=== PATIENT | male | born 1965 | race Caucasian/White ===

== ENCOUNTER 2019-11-07 11:26 | Inpatient (IN) | payer BC ==
[~2019-11-07] VITALS: Ht 174 cm; Wt 100.5 kg
[2019-11-07 11:40] VITALS: BP 151/91
[2019-11-07] MEDS ORDERED: ASPIRIN 325 MG TABLET PO ONE (12:15)
--- NOTE | 2019-11-07 12:26 | EKG ---
[facility] [address] [place] [address] Test Date: 2019-11-07 Test Time: 12:22:33 Pat Name: YONY MILAN Department: Room: 208 1 Gender: M Intrusion Analyst: MARIAELENA : 1965 Requested By: BRAD CASTILLO Order Number: [id number] Reading MD: Measurements Intervals [place] Rate: 56 P: 44 IL: 168 QRS: 14 QRSD: 96 T: 32 QT: 408 QTc: 396 Interpretive Statements SINUS RHYTHM NORMAL ECG RI6.02 No previous ECG available for comparison
--- NOTE | 2019-11-07 12:51 | PDOC2 ---
LELIA VILLAGOMEZ BIG DATA ADMIN 11/07/19 1251: CARDIAC CONSULT DATE OF CONSULT Date of Consult DATE: 11/07/19 TIME: 12:48 REASON FOR CONSULT Reason for Consult: Chest pain REFERRING PHYSICIAN Referring Physician: Dr. Finn SOURCE Source: Chart review, Patient HISTORY OF PRESENT ILLNESS HISTORY OF PRESENT ILLNESS This is a 54 yo male who presented from PCP secondary to chest pain. Patient reports intermittent chest pain for the last month or so. Worse with exertional activities. Associated with dizziness and diaphoresis. No palpitations or nausea/vomiting. Also reports shortness of breath with exertion and fatigue. Went to see primary care provider who notified photography assistant with concerns of unstable angina. Patient has strong family h/o CAD with 2 brother and mothers undergoing CABG in their 50's. PAST MEDICAL HISTORY Cardiovascular: HTN Pulmonary: No pertinent hx GI: No pertinent hx Heme/Onc: Other (H/o DVT following knee surgery ) Hepatobiliary: No pertinent hx Psych: No pertinent hx Musculoskeletal: Osteoarthritis Rheumatologic: No pertinent hx Infectious disease: No pertinent hx Renal/: No pertinent hx Endocrine: No pertinent hx Dermatology: No pertinent hx PAST SURGICAL HISTORY Past Surgical History: Other (bilateral knee ) FAMILY HISTORY Family History: Coronary Artery Disease (brothers and mother ) SOCIAL HISTORY Smoke: No ALCOHOL: none Drugs: None Lives: with Family CURRENT MEDICATIONS CURRENT MEDICATIONS Current Medications Medications (Trade) Dose Ordered Sig/Kathie Route PRN Reason Start Time Stop Time Status Last Admin Dose Admin Aspirin (Rupa Aspirin) 325 mg 1X ONCE PO 11/07/19 12:15 11/07/19 12:16 DC 11/07/19 12:28 ALLERGIES ALLERGIES: Coded Allergies: No Known Drug Allergies (Unverified , 02/26/16) ROS Review of System 14 point ROS conducted with pertinent positives noted above in HPI. PHYSICAL EXAM General: Alert, Oriented X3, Cooperative, No acute distress HEENT: Atraumatic, Mucous membr. moist/pink Lungs: Clear to auscultation Heart: Regular rate, Normal S1, Normal S2 Abdomen: Soft, No tenderness Extremities: No edema Skin: No significant lesion Neuro: Normal speech, Sensation intact Psych/Mental Status: Mental status NL, Mood NL MUSCULOSKELETAL: Osteoarthritic changes both hands VITALS/I&O VITALS/I&O: Vital Signs Date Time Temp Pulse Resp B/P (MAP) Pulse Ox O2 Delivery O2 Flow Rate FiO2 11/07/19 11:40 98.7 62 18 151/91 (111) 98 Room Air 98.7 ASSESSMENT/PLAN ASSESSMENT/PLAN 1. Chest pain with typical features 2. Hypertension 3. Arthritis 4. H/o DVT follow knee surgery Recommendations CBC, BMP, PT/INR Lipids, TSH Trend troponin ASA therapy Resume ARB Add low-dose BB Echo to assess LV systolic function Given symptomatolgy and significant risk factors, recommended cardiac cath with possible PCI. R/b/a discussed with patient and he is agreeable. Will proceed with this tomorrow. NPO p SINDI FRAZIER MD 11/07/19 1730: CARDIAC CONSULT ASSESSMENT/PLAN ASSESSMENT/PLAN Patient seen and examined. Agree with HAND SPRING REPAIRER's assessment and plan. Clinical presentation consistent with unstable angina. Monitor serial cardiac enzymes. Check 2D echo to assess LV systolic function and proceed with cardiac catheterization and possible PCI. Risks and benefits were explained and he is agreeable. Thank you for your consultation LELIA VILLAGOMEZ APRN Nov 07, 2019 12:51 SINDI PEDRAZA MD Nov 07, 2019 17:30
[2019-11-07 13:14] LABS: ALBUMIN 4.1 g/dL (3.4-5.0); ALBUMIN/GLOBULIN RATIO 1.2 (1.0-1.7); CALCIUM 8.5 mg/dL (8.5-10.1); GFR 77.9; POTASSIUM 4.5 mmol/L (3.5-5.1); TOTAL BILIRUBIN 0.4 mg/dL (0.2-1.0); TOTAL PROTEIN 7.6 g/dL (6.4-8.2)
[2019-11-07 13:16] LABS: CHOLESTEROL/HDL RATIO 5.7
[2019-11-07] MEDS ORDERED: HYDR12.58 PO (13:38)
[2019-11-07] MEDS ORDERED: CHOL500021 PO (13:38)
[2019-11-07] MEDS ORDERED: ACET-1871 PO (13:38)
[2019-11-07] MEDS ORDERED: ROPI0.254 PO (13:38)
[2019-11-07] MEDS ORDERED: ASCO100T4 PO (13:38)
[2019-11-07] MEDS ORDERED: LOSA-73 PO (13:38)
[2019-11-07 14:18] LABS: BASO % 1 % (0-3); EOS # 0.1 x10^3/uL (0.0-0.7); EOS % 1 % (0-3); HEMATOCRIT 46.6 % (39.0-53.0); HEMOGLOBIN 15.9 g/dL (13.0-17.5); LYMPH # 2.2 x10^3/uL (1.0-4.8); LYMPH % 33 % (24-48); MEAN CORPUSCULAR HEMOGLOBIN 30 pg (25-35); MEAN CORPUSCULAR HGB CONC 34 g/dL (31-37); MEAN CORPUSCULAR VOLUME 88 fL (79-100); MONO # 0.6 x10^3/uL (0.0-1.1); MONO % 9 % (0-9); NEUT # 3.8 x10^3/uL (1.8-7.7); NEUT % 56 % (31-73); PLATELET COUNT 292 x10^3/uL (140-400); RED BLOOD COUNT 5.28 x10^6/uL (4.30-5.70); RED CELL DISTRIBUTION WIDTH 13.7 % (11.5-14.5); WHITE BLOOD COUNT 6.8 x10^3/uL (4.0-11.0)
[2019-11-07 15:00] VITALS: BP 128/86
[2019-11-07] MEDS: LOSARTAN POTASSIUM 50 MG TABLET. PO SCH (16:00)
[2019-11-07 16:55] LABS: PROTHROMBIN TIME PATIENT 12.3 SEC (11.7-14.0)
[2019-11-07 19:58] VITALS: BP 140/82
--- NOTE | 2019-11-07 20:00 | PDOC ---
Provider Note Provider Note Pt seen in the office, admitted to hospital. #[id number].H&P dictated. Justicifation of Admission Dx: Justifications for Admission: Justification of Admission Dx: Yes Angina: Unstable Variant BRAD CASTILLO MD Nov 07, 2019 20:00
[2019-11-07] MEDS: ACETAMINOPHEN 325 MG TABLET. PO PRN (20:15)
[2019-11-07] MEDS: METOPROLOL TART IMMED RELEASE 25 MG TABLET. PO SCH (20:15)
[2019-11-07] MEDS: rOPINIRole 0.25 MG TABLET. PO SCH (20:15)
--- NOTE | 2019-11-07 20:24 | HP ---
ADMIT DATE: 11/07/2019 LOCATION: [address] [place] [address]. REASON FOR ADMISSION TO THE HOSPITAL: Chest pain, unstable angina. HISTORY OF PRESENT ILLNESS: The patient is a 54-year-old male who has noticed chest discomfort, retrosternal and also shortness of breath with exertion going on for a couple of days, progressively worse, came to the Emergency Room. There is a strong family history of coronary artery disease. His brothers and sisters, all of them had either from cardiac disease or had heart bypass surgery, or angioplasty before the age of 55. OTHER MEDICAL HISTORY: Has history of hypertension and gout. PAST SURGICAL HISTORY: Knee surgery on the knee, not replacement. FAMILY HISTORY: Coronary artery disease in brothers, mothers and sisters. SOCIAL HISTORY: Denies smoking, alcohol, or drug abuse. ALLERGIES: No known allergies. MEDICATIONS AT HOME: The patient takes losartan 50 mg daily, ropinirole 0.25 for leg cramps at night time, vitamin D, vitamin C, hydrochlorothiazide, water pill 12.5, Tylenol p.r.n. REVIEW OF SYMPTOMS: Complains of chest pains on and off, shortness of breath increased and with exertion. Rest of the 14-system was reviewed and negative. PHYSICAL EXAMINATION: GENERAL: The patient is not in any distress right now. VITAL SIGNS: Temperature 98, pulse 62, respirations 18, blood pressure 151/91, 98 on room air. HEENT: Head is atraumatic. Pupils equal. Oral cavity; no congestion. NECK: Supple. Thyroid not enlarged. JVD not elevated. CHEST: Symmetrical. CARDIOVASCULAR: S1, S2. LUNGS: Clear to auscultation. ABDOMEN: Soft, bowel sound present, nontender. EXTERNAL GENITALIA: No Petty. RECTAL: Deferred. EXTREMITIES: No calf tenderness, no edema. Pulses 1+. NEUROLOGIC: Moving all extremities. No focal deficits noted. LABORATORY DATA: White count 7, hemoglobin 16, platelets 292. INR 1.0. Electrolytes show sodium 141, potassium 4.5, chloride 30, anion gap 7, BUN 11, creatinine 1.0, glucose 93. LFTs normal. TSH 4.19, cholesterol 188 and TSH is 4.194. EKG, no acute ischemia. Chest x-ray pending. FINAL IMPRESSION: 1. Chest pain with worsening symptoms, possible unstable angina. 2. Shortness of breath with exertion, rule out coronary artery disease. 3. Hypertension. 4. History of gout. 5.Strong family h/o cad in multiple siblings before age 55. PLAN: At this time, admit to the hospital. Cardiology is consulted. Serial cardiac enzymes, crown ironer, EKG, possibly a stress test or a catheterization in the morning. BRAD CASTILLO MD DR: FINESSE/alecia JOB#: [id number] / [id number] MERARY
[2019-11-07 23:02] VITALS: BP 114/72
[2019-11-08] VITALS (16 sets, daily range): BP systolic 91–135; BP diastolic 58–82
--- NOTE | 2019-11-08 08:40 | PDOC ---
PROGRESS NOTES Date of Service: DATE: 11/08/19 TIME: 08:38 Subjective Subjective slight chest discomfort Objective Objective Vital Signs Date Time Temp Pulse Resp B/P (MAP) Pulse Ox O2 Delivery O2 Flow Rate FiO2 11/08/19 02:30 97.4 61 18 132/75 (94) 98 Room Air 97.4 Intake and Output 11/08/19 07:00 Intake Total 1500 ml Output Total 1370 ml Balance 130 ml Intake Oral 1500 ml Output Urine Total 1370 ml Physical Exam Abdomen: Soft, No tenderness Heart: Regular rate, Normal S1, Normal S2 Extremities: No edema General: Alert, Oriented X3, Cooperative, No acute distress HEENT: Atraumatic, Mucous membr. moist/pink Lungs: Clear to auscultation MUSCULOSKELETAL: Osteoarthritic changes both hands Neuro: Normal speech, Sensation intact Psych/Mental Status: Mental status NL, Mood NL Skin: No significant lesion Assessment Assessment FINAL IMPRESSION: 1. Chest pain with worsening symptoms, possible unstable angina. 2. Shortness of breath with exertion, rule out coronary artery disease. 3. Hypertension. 4. History of gout. 5. Strong family h/o CAD PLAN: EKG -ve troponin neg cardiac cath today cxr pending ldl 130 start on statin. At this time, admit to the hospital. Cardiology is consulted. Serial cardiac enzymes, inside sales agent, EKG, possibly a stress test or a catheterization in the morning. Comment Review of Relevant I have reviewed the following items dread (where applicable) has been applied. Labs Laboratory Tests Test 11/07/19 12:34 11/07/19 18:35 White Blood Count 6.8 x10^3/uL (4.0-11.0) Red Blood Count 5.28 x10^6/uL (4.30-5.70) Hemoglobin 15.9 g/dL (13.0-17.5) Hematocrit 46.6 % (39.0-53.0) Mean Corpuscular Volume 88 fL (79-100) Mean Corpuscular Hemoglobin 30 pg (25-35) Mean Corpuscular Hemoglobin Concent 34 g/dL (31-37) Red Cell Distribution Width 13.7 % (11.5-14.5) Platelet Count 292 x10^3/uL (140-400) Neutrophils (%) (Auto) 56 % (31-73) Lymphocytes (%) (Auto) 33 % (24-48) Monocytes (%) (Auto) 9 % (0-9) Eosinophils (%) (Auto) 1 % (0-3) Basophils (%) (Auto) 1 % (0-3) Neutrophils # (Auto) 3.8 x10^3/uL (1.8-7.7) Lymphocytes # (Auto) 2.2 x10^3/uL (1.0-4.8) Monocytes # (Auto) 0.6 x10^3/uL (0.0-1.1) Eosinophils # (Auto) 0.1 x10^3/uL (0.0-0.7) Basophils # (Auto) 0.0 x10^3/uL (0.0-0.2) Prothrombin Time 12.3 SEC (11.7-14.0) Prothromb Time International Ratio 1.0 (0.8-1.1) Sodium Level 141 mmol/L (136-145) Potassium Level 4.5 mmol/L (3.5-5.1) Chloride Level 104 mmol/L (98-107) Carbon Dioxide Level 30 mmol/L (21-32) Anion Gap 7 (6-14) Blood Urea Nitrogen 11 mg/dL (8-26) Creatinine 1.0 mg/dL (0.7-1.3) Estimated GFR (Cockcroft-Gault) 77.9 BUN/Creatinine Ratio 11 (6-20) Glucose Level 93 mg/dL (70-99) Calcium Level 8.5 mg/dL (8.5-10.1) Total Bilirubin 0.4 mg/dL (0.2-1.0) Aspartate Amino Transf (AST/SGOT) 20 U/L (15-37) Alanine Aminotransferase (ALT/SGPT) 42 U/L (16-63) Alkaline Phosphatase 49 U/L (46-116) Troponin I Quantitative < 0.017 ng/mL (0.000-0.055) < 0.017 ng/mL (0.000-0.055) Total Protein 7.6 g/dL (6.4-8.2) Albumin 4.1 g/dL (3.4-5.0) Albumin/Globulin Ratio 1.2 (1.0-1.7) Triglycerides Level 162 mg/dL (0-150) Cholesterol Level 188 mg/dL (0-200) LDL Cholesterol, Calculated 123 mg/dL (0-100) VLDL Cholesterol, Calculated 32 mg/dL (0-40) Non-HDL Cholesterol Calculated 155 mg/dL (0-129) HDL Cholesterol 33 mg/dL (40-60) Cholesterol/HDL Ratio 5.7 Thyroid Stimulating Hormone (TSH) 4.194 uIU/mL (0.358-3.74) Medications Current Medications Acetaminophen (Tylenol) 650 mg PRN Q6HRS PRN PO PAIN Last administered on 11/07/19at 20:15; Start 11/07/19 at 20:00 Aspirin (Rupa Aspirin) 325 mg 1X ONCE PO Last administered on 11/07/19at 12:28; Start 11/07/19 at 12:15; Stop 11/07/19 at 12:16; Status DC Aspirin (Ecotrin) 81 mg DAILYWBKFT PO ; Start 11/08/19 at 08:00 Losartan Potassium (Cozaar) 50 mg DAILY PO ; Start 11/07/19 at 16:00 Metoprolol Tartrate (Lopressor) 25 mg BID PO Last administered on 11/07/19at 20:15; Start 11/07/19 at 21:00 Ropinirole HCl (Requip) 0.25 mg HS PO Last administered on 11/07/19at 20:15; Start 11/07/19 at 21:00 Vitals/I & O Vital Sign - Last 24 Hours 11/07/19 11/07/19 11/07/19 11/07/19 11:40 12:30 15:00 16:00 Temp 98.7 98.2 98.7 98.2 Pulse 62 59 59 Resp 18 20 B/P (MAP) 151/91 (111) 128/86 (100) 128/86 Pulse Ox 98 97 O2 Delivery Room Air Room Air Room Air 11/07/19 11/07/19 11/07/19 11/07/19 19:58 20:00 20:15 23:02 Temp 97.9 97.7 97.9 97.7 Pulse 60 60 56 Resp 18 18 B/P (MAP) 140/82 (101) 140/82 114/72 (86) Pulse Ox 97 97 O2 Delivery Room Air Room Air Room Air 11/08/19 02:30 Temp 97.4 97.4 Pulse 61 Resp 18 B/P (MAP) 132/75 (94) Pulse Ox 98 O2 Delivery Room Air Intake and Output 11/07/19 11/07/19 11/08/19 15:00 23:00 07:00 Intake Total 1500 ml 0 ml Output Total 420 ml 950 ml Balance 1080 ml -950 ml Justicifation of Admission Dx: Justifications for Admission: Justification of Admission Dx: Yes Angina: Unstable Variant BRAD CASTILLO MD Nov 08, 2019 08:40
[2019-11-08] MEDS ORDERED: ASPI-886 PO (08:42)
--- NOTE | 2019-11-08 08:42 | RAD ---
CHEST PA LATERAL History: Reason: chest pain / Spl. Instructions: / History: Comparison: None. Findings: No consolidation or pleural effusion. Normal heart size. No pneumothorax. Impression: 1. No acute cardiopulmonary process. Electronically signed by: Rodriguez Banda DO (11/08/2019 8:40 AM) [id number]
[2019-11-08] MEDS: ASPIRIN ENTERIC COATED 81 MG TABLET.DR. PO SCH (08:53)
[2019-11-08] MEDS: METOPROLOL TART IMMED RELEASE 25 MG TABLET. PO SCH ×2 (08:53→21:05)
[2019-11-08] MEDS: LOSARTAN POTASSIUM 50 MG TABLET. PO SCH (08:53)
[2019-11-08] MEDS ORDERED: IOHEXOL 300 MG/ML 100ML VIAL. ONE ×2 (11:45→14:23)
[2019-11-08] MEDS ORDERED: LIDOCAINE 1% PF 2 ML VIAL. ONE (11:45)
[2019-11-08] MEDS ORDERED: HEPARIN for IV BOLUS 10,000 UNIT/10 ML VIAL. ONE (13:08)
[2019-11-08] MEDS ORDERED: VERAPAMIL 5 MG/2 ML VIAL. ONE (13:08)
[2019-11-08] MEDS ORDERED: NITROGLYCERIN 200 MCG/2 ML SYRINGE FOR CATH/VASC LAB. ONE ×2 (13:08→14:28)
[2019-11-08] MEDS ORDERED: fentaNYL PF VIAL 100 MCG/2 ML VIAL ONE (13:08)
[2019-11-08] MEDS ORDERED: MIDAZOLAM HCL/PF 2 MG/2 ML VIAL. ONE (13:08)
--- NOTE | 2019-11-08 13:44 | NUR ---
SS following for discharge planning. SS reviewed pt chart and discussed with pt RN. Pt is from home and is currently on room air. Pt having heart cath today. Discharge plan is to home when medically ready. SS will continue to follow for discharge planning.
[2019-11-08] MEDS ORDERED: NITROGLYCERIN 200 MCG/2 ML SYRINGE FOR CATH/VASC LAB. IART ONE ×2 (13:45→14:30)
[2019-11-08] MEDS ORDERED: MIDAZOLAM HCL/PF 2 MG/2 ML VIAL. IV ONE (13:45)
[2019-11-08] MEDS ORDERED: LIDOCAINE 1% PF 2 ML VIAL. INJ ONE (13:45)
[2019-11-08] MEDS ORDERED: IOHEXOL 300 MG/ML 100ML VIAL. IART ONE (13:45)
[2019-11-08] MEDS ORDERED: VERAPAMIL 5 MG/2 ML VIAL. IART ONE (13:45)
[2019-11-08] MEDS ORDERED: HEPARIN for IV BOLUS 10,000 UNIT/10 ML VIAL. IART ONE (13:45)
[2019-11-08] MEDS ORDERED: fentaNYL PF VIAL 100 MCG/2 ML VIAL IV ONE (13:45)
[2019-11-08] MEDS ORDERED: BIVALIRUDIN 250 MG VIAL. IV ONE ×4 (13:47→14:15)
[2019-11-08] MEDS ORDERED: ASPIRIN 325 MG TABLET ONE (14:35)
[2019-11-08] MEDS ORDERED: TICAGRELOR 90 MG TABLET. ONE (14:35)
[2019-11-08] MEDS ORDERED: TICAGRELOR 90 MG TABLET. PO ONE (14:45)
[2019-11-08] MEDS ORDERED: ASPIRIN 325 MG TABLET PO ONE (14:45)
--- NOTE | 2019-11-08 14:56 | PDOC ---
MODERATE SEDATION ASSESSMENT RISKS/ALTERNATIVES Risks/Alternatives Risks and alternatives of this type of sedation and procedure discussed with: RISK/ALTERNATIVES: Patient H & P ON CHART H & P H & P on chart and reviewed for co-morbid conditions and appropriate labs. H&P ON CHART: Yes STATUS PREG STATUS ASSESSED: N/A MEDS/ALLERGIES REVIEWED Meds/Allergies Reviewed Medications and Allergies including time and route of recently administered narcotics and sedatives. MEDS/ALLERGIES REVIEWED: Yes ASA RATING ASA RATING: II AIRWAY ASSESSMENT Airway Assessment Airway patency, oral function limitations, presence of caps, crowns, dentures, partials, and ability to extend neck assessed. AIRWAY ASSESSMENT: Yes MALLAMPATI SCORE MALLAMPATI SCORE: II PRE-SEDATION ASSESSMENT PRE-SEDATION ASSESSMENT: Yes SINDI PEDRAZA MD Nov 08, 2019 14:56
[2019-11-08] MEDS ORDERED: IV 1/2 NORMAL SALINE 1,000 ML IV SCH (14:57)
[2019-11-08] MEDS ORDERED: fentaNYL PF VIAL 100 MCG/2 ML VIAL IV PRN (15:00)
[2019-11-08] MEDS ORDERED: NITROGLYCERIN SUBLINGUAL 0.4 MG BOTTLE OF 25. SL PRN (15:00)
[2019-11-08] MEDS ORDERED: 0.9 % SODIUM CHLORIDE 10 ML DISP.SYRIN. IV PRN (15:00)
--- NOTE | 2019-11-08 15:06 | CARD ---
MR#: [id number] Date of Study: 11/08/2019 Ordering Physician: SINDI MITCHELL, Referring Physician: SINDI MITCHELL, Tech: Angy Acevedo APPROVED REPORT Technologist: Angy Acevedo Nurse: Shivani Geronimo Procedure(s) performed: 1. Left heart catheterization and selective coronary angiography via right t ransradial approach 2. Successful PCI/drug-eluting stents placement to the left anterior descending artery fl time: 23.3 min dose: 139 gycm2 contrast: 229 ml moderate sedation: 68 mins INDICATION The indication(s) include : unstable angina . CSHA Clinical Frailty Scale CSHA Clinical Frailty Scale: Managing Well Heart Failure Heart Failure: No PROCEDURE NARRATIVE After explaining the risks, benefits and alternative options, informed consent was obtained from leslie ent. Patient was brought to the cardiac Systems Designer and right wrist was prepped and draped in the usual fashion after confirming a positive modified Patrice's test. Arterial access was obtained in the righ t radial artery and a 6 [place] sheath was inserted. 6 [place] Bin catheter was used to perform enrico ective angiography of the left and right coronary arteries. LVEDP and transaortic gradients were christi sured. The following findings were noted. FINDINGS 1. Hemodynamics: Left ventricular end-diastolic pressure of 18 mmHg. No pullback gradient across th e aortic valve. 2. Coronary angiography: a. The left main coronary artery arose from the left sinus of Valsalva, gave rise to the left anteri or descending, ramus intermedius and left circumflex arteries and did not show any significant stenos is. b. The left anterior descending artery showed 80 to 90% stenosis involving the mid to distal segment . The proximal segment showed 60% stenosis with ulcerated plaque with high risk features. c. The left circumflex artery did not show any significant stenosis. d. The ramus intermedius artery did not show any significant stenosis. e. The right coronary artery was a large and dominant vessel arising from the right sinus of Valsalv a that showed 20% stenosis in the proximal and mid segments. INTERVENTION The left main coronary artery was engaged with a 6 [place] XB 3.5 guide catheter. Several initial att empts to advance 0.014 inch Asahi pro-water guidewire across the midsegment of left anterior descendi ng artery were unsuccessful due to tortuous course. With this wire parked in the diagonal branch, a 0.014 inch PT to guidewire was successfully advanced into the distal segment. The lesions in the pro ximal and mid to distal segments were dilated with a 2.5 x 15 mm [employer] emerge balloon. T he mid to distal segment lesion was then treated with a 2.5 x 24 mm [employer] Promus Elite dr ug-eluting stent. The proximal segment stenosis was treated with a 3.5 x 24 mm [employer] Pro mus Elite drug-eluting stent. Follow-up angiography showed resolution of both the lesions to 0% with MICHAEL-3 distal flow. Patient tolerated the procedure well. Hemostasis was achieved using TR band. There were no immediate complications MICHAEL Flow MICHAEL Flow (Pre-Intervention): MICHAEL-2 MICHAEL Flow (Post-Intervention): MICHAEL-3 MICHAEL Flow MICHAEL Flow (Pre-Intervention): MICHAEL-3 MICHAEL Flow (Post-Intervention): MICHAEL-3 Conclusion 1. Severe single-vessel coronary artery disease involving left anterior descending artery 2. Successful PCI/drug-eluting stent placement to the left anterior descending artery Recommendations 1. Aspirin 81 mg daily 2. Ticagrelor 90 mg twice daily 3. Cardiovascular risk factor modification. Signed by : Sindi Mitchell, Electronically Approved : 11/08/2019 15:05:27
[2019-11-08] MEDS ORDERED: ATORVASTATIN CALCIUM 10 MG TABLET. PO SCH (21:00)
[2019-11-08] MEDS: ACETAMINOPHEN 325 MG TABLET. PO PRN (21:04)
[2019-11-08] MEDS: rOPINIRole 0.25 MG TABLET. PO SCH (21:05)
[2019-11-08] MEDS ORDERED: METO25TA4 PO (21:24)
[2019-11-08] MEDS ORDERED: TICA90TA PO (21:24)
[2019-11-09 03:22] VITALS: BP 128/64
[2019-11-09 07:00] VITALS: BP 114/79
[2019-11-09] MEDS: METOPROLOL TART IMMED RELEASE 25 MG TABLET. PO SCH (08:32)
[2019-11-09] MEDS: LOSARTAN POTASSIUM 50 MG TABLET. PO SCH (08:33)
[2019-11-09] MEDS: ASPIRIN ENTERIC COATED 81 MG TABLET.DR. PO SCH (08:33)
--- NOTE | 2019-11-09 08:59 | PDOC ---
PROGRESS NOTES Date of Service: DATE: 11/09/19 TIME: 08:59 Objective Objective Vital Signs Date Time Temp Pulse Resp B/P (MAP) Pulse Ox O2 Delivery O2 Flow Rate FiO2 11/09/19 08:33 54 114/79 11/09/19 07:00 97.6 18 98 Room Air 97.6 11/08/19 13:45 2.0 Intake and Output 11/09/19 07:00 Intake Total 3350 ml Output Total 3450 ml Balance -100 ml Intake Oral 2400 ml IV Total 950 ml Output Urine Total 3450 ml Physical Exam Abdomen: Soft, No tenderness Heart: Regular rate, Normal S1, Normal S2 Extremities: No edema General: Alert, Oriented X3, Cooperative, No acute distress HEENT: Atraumatic, Mucous membr. moist/pink Lungs: Clear to auscultation MUSCULOSKELETAL: Osteoarthritic changes both hands Neuro: Normal speech, Sensation intact Psych/Mental Status: Mental status NL, Mood NL Skin: No significant lesion Assessment Assessment FINAL IMPRESSION: 1. Chest pain with worsening symptoms, possible unstable angina. 2. Shortness of breath with exertion, rule out coronary artery disease. 3. Hypertension. 4. History of gout. 5. Strong family h/o CAD PLAN: EKG -ve troponin neg cardiac cath today cxr pending ldl 130 start on statin. At this time, admit to the hospital. Cardiology is consulted. Serial cardiac enzymes, compliance monitor, EKG, possibly a stress test or a catheterization in the morning. Comment Review of Relevant I have reviewed the following items dread (where applicable) has been applied. Medications Current Medications Aspirin (Rupa Aspirin) 325 mg 1X ONCE PO Last administered on 11/08/19at 14:43; Start 11/08/19 at 14:45; Stop 11/08/19 at 14:46; Status DC Aspirin (Rupa Aspirin) 325 mg STK-MED ONCE .ROUTE ; Start 11/08/19 at 14:35; Stop 11/08/19 at 14:36; Status DC Atorvastatin Calcium (Lipitor) 10 mg QHS PO Last administered on 11/08/19at 21:04; Start 11/08/19 at 21:00 Bivalirudin (Angiomax) 250 mg 1X ONCE IV Last administered on 11/08/19at 14:00; Start 11/08/19 at 14:00; Stop 11/08/19 at 14:01; Status DC Bivalirudin (Angiomax) 250 mg 1X ONCE IV Last administered on 11/08/19at 14:24; Start 11/08/19 at 14:15; Stop 11/08/19 at 14:18; Status DC Bivalirudin (Angiomax) 250 mg STK-MED ONCE IV ; Start 11/08/19 at 13:47; Stop 11/08/19 at 13:48; Status DC Bivalirudin (Angiomax) 250 mg STK-MED ONCE IV ; Start 11/08/19 at 14:05; Stop 11/08/19 at 14:05; Status DC Fentanyl Citrate (Fentanyl 2ml Vial) 50 mcg PRN Q1HR PRN IV MODERATE OR SEVERE PAIN; Start 11/08/19 at 15:00 Fentanyl Citrate (Fentanyl 2ml Vial) 100 mcg 1X ONCE IV Last administered on 11/08/19at 13:45; Start 11/08/19 at 13:45; Stop 11/08/19 at 13:57; Status DC Fentanyl Citrate (Fentanyl 2ml Vial) 100 mcg STK-MED ONCE .ROUTE ; Start 11/08/19 at 13:08; Stop 11/08/19 at 13:08; Status DC Heparin Sodium (Porcine) (Heparin Sodium) 2,500 unit 1X ONCE IART Last administered on 11/08/19at 13:45; Start 11/08/19 at 13:45; Stop 11/08/19 at 13:57; Status DC Heparin Sodium (Porcine) (Heparin Sodium) 10,000 unit STK-MED ONCE .ROUTE ; Start 11/08/19 at 13:08; Stop 11/08/19 at 13:09; Status DC Heparin Sodium/ Sodium Chloride 500 ml @ As Directed STK-MED ONCE .ROUTE ; Start 11/08/19 at 11:45; Stop 11/08/19 at 11:45; Status DC Heparin Sodium/ Sodium Chloride (HEPARIN for ARTERIAL LINE FLUSH) 1,000 unit 1X ONCE IART Last administered on 11/08/19at 13:45; Start 11/08/19 at 13:45; Stop 11/08/19 at 13:57; Status DC Heparin Sodium/ Sodium Chloride (HEPARIN for ARTERIAL LINE FLUSH) 1,000 unit 1X ONCE IART Last administered on 11/08/19at 13:45; Start 11/08/19 at 13:45; Stop 11/08/19 at 13:57; Status DC Iohexol (Omnipaque 300 Mg/ml) 100 ml 1X ONCE IART Last administered on 11/08/19at 13:45; Start 11/08/19 at 13:45; Stop 11/08/19 at 13:57; Status DC Iohexol (Omnipaque 300 Mg/ml) 100 ml STK-MED ONCE .ROUTE ; Start 11/08/19 at 11:45; Stop 11/08/19 at 11:45; Status DC Iohexol (Omnipaque 300 Mg/ml) 100 ml STK-MED ONCE .ROUTE ; Start 11/08/19 at 14:23; Stop 11/08/19 at 14:23; Status DC Lidocaine HCl (Xylocaine-Mpf 1% 2ml Vial) 2 ml 1X ONCE INJ Last administered on 11/08/19at 13:45; Start 11/08/19 at 13:45; Stop 11/08/19 at 13:57; Status DC Lidocaine HCl (Xylocaine-Mpf 1% 2ml Vial) 2 ml STK-MED ONCE .ROUTE ; Start 11/08/19 at 11:45; Stop 11/08/19 at 11:45; Status DC Midazolam HCl (Versed) 2 mg 1X ONCE IV Last administered on 11/08/19at 13:45; Start 11/08/19 at 13:45; Stop 11/08/19 at 13:57; Status DC Midazolam HCl (Versed) 2 mg STK-MED ONCE .ROUTE ; Start 11/08/19 at 13:08; Stop 11/08/19 at 13:09; Status DC Nitroglycerin (Nitroglycerin) 200 mcg 1X ONCE IART Last administered on 11/08/19at 13:45; Start 11/08/19 at 13:45; Stop 11/08/19 at 13:56; Status DC Nitroglycerin (Nitroglycerin) 200 mcg 1X ONCE IART Last administered on 11/08/19at 14:30; Start 11/08/19 at 14:30; Stop 11/08/19 at 14:31; Status DC Nitroglycerin (Nitroglycerin) 200 mcg STK-MED ONCE .ROUTE ; Start 11/08/19 at 13:08; Stop 11/08/19 at 13:09; Status DC Nitroglycerin (Nitroglycerin) 200 mcg STK-MED ONCE .ROUTE ; Start 11/08/19 at 14:28; Stop 11/08/19 at 14:28; Status DC Nitroglycerin (Nitrostat) 0.4 mg PRN Q5MIN PRN SL CHEST PAIN; Start 11/08/19 at 15:00 Sodium Chloride 1,000 ml @ 100 mls/hr Q10H IV Last administered on 11/08/19at 17:48; Start 11/08/19 at 14:57; Stop 11/09/19 at 00:56; Status DC Sodium Chloride (Normal Saline Flush) 3 ml QSHIFT PRN IV AFTER MEDS AND BLOOD DRAWS; Start 11/08/19 at 15:00 Ticagrelor (Brilinta) 90 mg BID PO Last administered on 11/09/19at 08:32; Start 11/09/19 at 09:00 Ticagrelor (Brilinta) 90 mg STK-MED ONCE .ROUTE ; Start 11/08/19 at 14:35; Stop 11/08/19 at 14:35; Status DC Ticagrelor (Brilinta) 180 mg 1X ONCE PO Last administered on 11/08/19at 14:43; Start 11/08/19 at 14:45; Stop 11/08/19 at 14:46; Status DC Verapamil HCl (Verapamil) 2.5 mg 1X ONCE IART Last administered on 11/08/19at 13:45; Start 11/08/19 at 13:45; Stop 11/08/19 at 13:57; Status DC Verapamil HCl (Verapamil) 5 mg STK-MED ONCE .ROUTE ; Start 11/08/19 at 13:08; Stop 11/08/19 at 13:09; Status DC Vitals/I & O Vital Sign - Last 24 Hours 11/08/19 11/08/19 11/08/19 11/08/19 11:00 13:45 13:45 14:44 Temp 97.4 97.4 Pulse 74 50 68 Resp 16 21 19 B/P (MAP) 124/74 (91) Pulse Ox 96 99 98 O2 Delivery Room Air Nasal Cannula Room Air O2 Flow Rate 2.0 11/08/19 11/08/19 11/08/19 11/08/19 15:00 15:15 15:30 15:45 Temp 94.4 94.4 Pulse 63 46 46 54 Resp 16 16 16 16 B/P (MAP) 135/76 (95) 113/82 (92) 91/63 (72) 135/76 (95) Pulse Ox 99 99 99 99 O2 Delivery Room Air Room Air Room Air Room Air 11/08/19 11/08/19 11/08/19 11/08/19 16:15 16:45 16:57 17:27 Pulse 49 53 58 59 Resp 16 16 16 16 B/P (MAP) 135/76 (95) 129/79 (96) 111/78 (89) 120/75 (90) Pulse Ox 97 98 98 98 O2 Delivery Room Air Room Air Room Air Room Air 11/08/19 11/08/19 11/08/19 11/08/19 17:57 18:27 19:38 20:00 Temp 98.1 98.1 Pulse 55 59 57 Resp 16 16 18 B/P (MAP) 118/65 (82) 116/58 (77) 133/68 (89) Pulse Ox 98 99 98 O2 Delivery Room Air Room Air Room Air Room Air 11/08/19 11/08/19 11/09/19 11/09/19 21:05 23:15 03:22 07:00 Temp 97.5 97.8 97.6 97.5 97.8 97.6 Pulse 57 47 54 59 Resp 18 18 18 B/P (MAP) 133/68 122/65 (84) 128/64 (85) 114/79 (91) Pulse Ox 97 98 98 O2 Delivery Room Air Room Air Room Air 11/09/19 11/09/19 08:32 08:33 Pulse 86 54 B/P (MAP) 114/79 114/79 Intake and Output 11/08/19 11/08/19 11/09/19 15:00 23:00 07:00 Intake Total 2400 ml 950 ml Output Total 1000 ml 650 ml 1800 ml Balance -1000 ml 1750 ml -850 ml Justicifation of Admission Dx: Justifications for Admission: Justification of Admission Dx: Yes Angina: Unstable Variant BRAD CASTILLO MD Nov 09, 2019 08:59
[2019-11-09] MEDS ORDERED: TICAGRELOR 90 MG TABLET. PO SCH (09:00)
--- NOTE | 2019-11-09 09:05 | CARD ---
MR#: [id number] Date of Study: 11/08/2019 Ordering Physician: LELIA VILLAGOMEZ, Referring Physician: LELIA VILLAGOMEZ, Tech: Cinda Calle [facility] APPROVED REPORT EXAM: Two-dimensional and M-mode echocardiogram with Doppler and color Doppler. Other Information Quality : Good Rhythm : Bradycardia INDICATION Chest Pain 2D DIMENSIONS RVDd3.2 (2.9-3.5cm)Left Atrium(2D)4.1 (1.6-4.0cm) IVSd1.3 (0.7-1.1cm)Aortic Root(2D)3.3 (2.0-3.7cm) LVDd4.6 (3.9-5.9cm)LVOT Diameter2.1 (1.8-2.4cm) PWd1.3 (0.7-1.1cm)LVDs2.8 (2.5-4.0cm) FS (%) 25.0 %LVEF(%)50.0 (>50%) Aortic Valve AoV Peak Placido.100.0cm/sAoV VTI21.0cm AO Peak GR.4.0mmHgAO Mean GR.2mmHg RICHARD (VTI)3.40cm2 LEFT VENTRICLE The left ventricle is normal size. There is mild concentric left ventricular hypertrophy. Left ventri gretchen systolic function is low normal. The Ejection Fraction is 50-55%. There is normal LV segmental wa ll motion. The left ventricular diastolic function and filling is normal for age. No left ventricle t hrombus noted on this study. RIGHT VENTRICLE The right ventricle is mildly dilated. The right ventricle is mildly to moderately hypertrophied. The right ventricular systolic function is normal. ATRIA The left atrium is mildly dilated. The right atrium size is normal. The interatrial septum is intact with no evidence for an atrial septal defect or patent foramen ovale as noted on 2-D or Doppler imagi ng. AORTIC VALVE The aortic valve is calcified but opens well. Doppler and Color Flow revealed no significant aortic r egurgitation. There is no significant aortic valvular stenosis. MITRAL VALVE The mitral valve is normal in structure and function. There is no evidence of mitral valve prolapse. There is no mitral valve stenosis. Doppler and Color Flow revealed no mitral valve regurgitation note d. TRICUSPID VALVE The tricuspid valve is normal in structure and function. Doppler and Color Flow revealed no tricuspid valve regurgitation noted. There is no tricuspid valve stenosis. PULMONIC VALVE The pulmonic valve is not well visualized. Doppler and Color Flow revealed no pulmonic valvular regur gitation. There is no pulmonic valvular stenosis. GREAT VESSELS The aortic root is normal in size. The ascending aorta is normal in size. The IVC is normal in size a nd collapses >50% with inspiration. PERICARDIAL EFFUSION There is no evidence of significant pericardial effusion. Critical Notification Critical Value: No <Conclusion> Left ventricle systolic function is low normal. The Ejection Fraction is 50-55%. There is normal LV segmental wall motion. Signed by : Rafita Tyson, Electronically Approved : 11/09/2019 09:04:52
[2019-11-09] MEDS ORDERED: ATOR10TA PO (10:07)
--- NOTE | 2019-11-09 10:56 | NUR ---
SW following. Discussed with RN, pt from home, cardiac diet, room air. Heart cath on 11/07. Discharge order for home with self care, no further SW needs.
[2019-11-09 11:00] VITALS: BP 116/70
--- NOTE | 2019-11-09 11:35 | PDOC ---
LELIA VILLAGOMEZ APRN 11/09/19 1135: CARDIO Progress Notes Date and Time Date of Service 11/09/19 Time of Evaluation 1120 Subjective Subjective: No Chest Pain, No shortness of breath, No Palpitations Vitals Vitals Vital Signs Date Time Temp Pulse Resp B/P (MAP) Pulse Ox O2 Delivery O2 Flow Rate FiO2 11/09/19 08:33 54 114/79 11/09/19 07:00 97.6 18 98 Room Air 97.6 11/08/19 13:45 2.0 Weight Weight [ ] Input and Output Intake and Output Intake and Output 11/09/19 07:00 Intake Total 3350 ml Output Total 3450 ml Balance -100 ml Intake Oral 2400 ml IV Total 950 ml Output Urine Total 3450 ml Physical Exam HEENT: Neck Supple W Full Motion Chest: Symmetric LUNGS: Clear to Auscultation Heart: S1S2, RRR, no murmurs Abdomen: Soft N/T Extremities: No Edema, Other (right radial arteriotomy site soft, clean, and dry. No erythema or hematoma present. Neurovascular status intact) Neurology: alert, oriented, follow commands Assessment Assessment 1. Chest pain with typical features 2. CAD; Cath with severe one-vessel disease. s/p successful PCI/LALITO to the LAD. Echo with preserved LV systolic function 3. Hypertension; controlled 4. Dyslipidemia; statin added Recommendations Secondary prevention measures including DAPT with ASA and Brilinta Statin and BB therapy Risk stratification modification Cardiac rehab referral Okay to discharge Follow up in our office with Dr. Mitchell as scheduled. Justicifation of Admission Dx: Justifications for Admission: Justification of Admission Dx: Yes Angina: Unstable Variant SINDI MITCHELL MD 11/09/192054: CARDIO Progress Notes Assessment Assessment Patient seen and examined. Agree with HAND MODEL's assessment and plan. s/p PCI/LALITO to LAD, chest pain free Tele did not show any arrhythmias ok for DC from cardiac standpoint Continue DAPT F/u in one month LELIA VILLAGOMEZ APRN Nov 09, 2019 11:35 SINDI MITCHELL MD Nov 09, 2019 20:55
--- NOTE | 2019-11-09 13:44 | NUR ---
Discharge Note: RIRI MILAN Discharge instructions and discharge home medications reviewed with Patient and a copy given. All questions have been answered and understanding verbalized. The following instructions and handouts were given: cath with stents Discontinued lines and drains: Peripheral IV intact. Patient discharged to Home or Self Care with Family Member via Ambulated
--- NOTE | 2019-11-09 21:28 | PDOC ---
Provider Note Provider Note Discharge summary dictated.#[id number]. Justicifation of Admission Dx: Justifications for Admission: Justification of Admission Dx: Yes Angina: Unstable Variant BRAD CASTILLO MD Nov 09, 2019 21:28
--- NOTE | 2019-11-09 21:48 | DS ---
DATE OF DISCHARGE: 11/09/2019 REASON FOR ADMISSION TO THE HOSPITAL: Progressive shortness of breath, chest tightness, unstable angina. CONSULTATION: Matthew Mitchell MD PROCEDURES DONE: 1. Echocardiogram. 2. Cardiac cath. 3. Also insertion of stent in the LAD. COMPLICATIONS NOTED: None. HOSPITAL COURSE: The patient is a 54-year-old male, who was complaining of progressive shortness of breath and chest tightness for last 1 week, getting progressively worse. The patient has a strong family history of coronary artery disease. Most of his siblings had other CAD, bypass, stents and from heart disease before the age of 55. The patient was admitted to the hospital. Cardiac enzymes and EKG were negative. Echocardiogram shows a normal left ventricular function. The patient was taken to cardiac catheterization. LAD has 60% proximal, 90% distal stenosis. The patient had a stent placed. Circumflex, no lesions. Ramus, no lesions. Right coronary, large dominant vessel, 20% stenosis. The patient did tolerate stents in the LAD. The patient was placed on Brilinta and aspirin and then started on Lipitor and metoprolol. The patient was discharged home. Follow up as outpatient. FINAL DIAGNOSES: 1. Unstable angina. 2. Cardiac catheterization shows single vessel disease, 90% distal left anterior descending. The patient had a stent placed. 3. Hypertension. 4. Hyperlipidemia. 5. Strong family history of coronary artery disease. DISPOSITION: Home. DISCHARGE MEDICATIONS: See MRAD for discharge medications. BRAD CASTILLO MD DR: FINESSE/alecia JOB#: [id number] / [id number]
== END 2019-11-09 13:46 | disposition home or self-care (01) | DRG 247 ==
LOC: 2 NORTH 11:26
PROVIDERS: ADMIT Internal Medicine; ATTEND Internal Medicine
PROC: B2111ZZ Fluoroscopy of Multiple Coronary Arteries using Low Osmolar Contrast (ICD-10-PCS; principal; 2019-11-08)
PROC: 027034Z Dilation of Coronary Artery, One Artery with Drug-eluting Intraluminal Device, Percutaneous Approach (ICD-10-PCS; 2019-11-08)
PROC: 4A023N7 Measurement of Cardiac Sampling and Pressure, Left Heart, Percutaneous Approach (ICD-10-PCS; 2019-11-08)
DX: I25.110 Atherosclerotic heart disease of native coronary artery with unstable angina pectoris (principal); I10 Essential (primary) hypertension; E78.5 Hyperlipidemia, unspecified; M19.90 Unspecified osteoarthritis, unspecified site; Z82.49 Family history of ischemic heart disease and other diseases of the circulatory system; Z86.718 Personal history of other venous thrombosis and embolism
CPT/HCPCS: 36415; 71046; 80053; 80061; 84443; 84484; 85025; 85610; 92928; 93005; 93306; 93458; 99152; 99153; C1725; C1769; C1887; C1892; J0583; J1644; J2250; J3010; J3490; Q9967; C1874; G0378

== ENCOUNTER 2019-11-14 21:33 | Emergency (ER) | payer BC ==
[~2019-11-14] VITALS: Ht 175.3 cm; Wt 99.5 kg
[~2019-11-14 21:33] MED LIST: ACET-1871 PO; ASCO100T4 PO; ASPI-886 PO; ATOR10TA PO; CHOL500021 PO; HYDR12.58 PO; LOSA-73 PO; METO25TA4 PO; ROPI0.254 PO; TICA90TA PO
--- NOTE | 2019-11-14 22:52 | PHYS DOC ---
Past Medical History Past Medical History: Angina, DVT, Hypertension Past Surgical History: Other Additional Past Surgical Histo: CARDIAC STENTS Smoking Status: Never Smoker Alcohol Use: None General Adult EDM: Chief Complaint: FOOT INJURY PAIN HPI: HPI: Patient is a 54 year old male who presents to the ED today complaining of redness noted on top of the right foot today. Patient denies any fever. He reports history of previous DVT after having the surgery. Denies being on any anticoagulants. Review of Systems: Review of Systems: Constitutional: Denies fever or chills. [] Eyes: Denies change in visual acuity. [] HENT: Denies nasal congestion or sore throat. [] Respiratory: Denies cough or shortness of breath. [] Cardiovascular: Denies chest pain or edema. [] GI: Denies abdominal pain, nausea, vomiting, bloody stools or diarrhea. [] : Denies dysuria. [] Musculoskeletal: Denies back pain or joint pain. [] Integument: Reports redness on top of the right foot Neurologic: Denies headache, focal weakness or sensory changes. [] Psychiatric: Denies depression or anxiety. [] Heart Score: Risk Factors: Risk Factors: DM, Current or recent (<one month) smoker, HTN, HLP, family history of CAD, obesity. Risk Scores: Score 0 - 3: 2.5% MACE over next 6 weeks - Discharge Home Score 4 - 6: 20.3% MACE over next 6 weeks - Admit for Clinical Observation Score 7 - 10: 72.7% MACE over next 6 weeks - Early Invasive Strategies Allergies: Allergies: Allergies Coded Allergies Type Severity Reaction Last Updated Verified No Known Drug Allergies 02/26/16 No Physical Exam: PE: Constitutional: Well developed, well nourished, no acute distress, non-toxic appearance. [] HENT: Normocephalic, atraumatic, bilateral external ears normal, oropharynx moist, no oral exudates, nose normal. [] Eyes: PERRLA, EOMI, conjunctiva normal, no discharge. [] Neck: Normal range of motion, no tenderness, supple, no stridor. [] Cardiovascular:Heart rate regular rhythm, no murmur [] Lungs & Thorax: Bilateral breath sounds clear to auscultation [] Abdomen: Bowel sounds normal, soft, no tenderness, no masses, no pulsatile masses. [] Skin: Warm, dry, trace amount of redness noted on top of the right foot distal metatarsal. The affected area is warm, tender to touch. No calf redness noted, no calf pain, negative Homans sign to the right leg. +2 right pedal pulse. Back: No tenderness, no CVA tenderness. [] Extremities: No tenderness, no cyanosis, no clubbing, ROM intact, no edema. [] Neurologic: Alert and oriented X 3, normal motor function, normal sensory function, no focal deficits noted. [] Psychologic: Affect normal, judgement normal, mood normal. [] Current Patient Data: Vital Signs: Vital Signs Date Time Temp Pulse Resp B/P (MAP) Pulse Ox O2 Delivery O2 Flow Rate FiO2 11/14/19 21:35 97.8 71 12 98 Room Air 97.8 EKG: EKG: [] Radiology/Procedures: Radiology/Procedures: [] Course & Med Decision Making: Course & Med Decision Making Pertinent Labs and Imaging studies reviewed. (See chart for details) This is a 54-year-old male patient presenting to the ED today complaining of right foot redness that he noted today. Venous Doppler of the right lower extremity is negative for any acute findings, tetanus is up-to-date. Patient was discharged on clindamycin. Follow-up with PCP in 1 to 2 weeks. Provided return precautions. Dragon Disclaimer: Dragjohn Disclaimer: This electronic medical record was generated, in whole or in part, using a voice recognition dictation system. Departure Departure Impression: Primary Impression: Cellulitis of right foot Disposition: 01 HOME, SELF-CARE Condition: STABLE Referrals: BRAD CASTILLO MD (PCP) Follow-up in 1 to 2 weeks Patient Instructions: Cellulitis, [id number] Additional Instructions: You have cellulitis of the right foot. Keep the area clean and dry. Your venous Doppler of the right lower extremity is negative for blood clot. We put you on antibiotics, ensure you complete them. Follow-up with your own doctor in 1 to 2 weeks. Come back to the ED at any point symptoms worsen. Scripts Clindamycin Hcl (CLINDAMYCIN HCL) 150 Mg Capsule 3 CAP PO TID, #90 CAP Prov: ANANT DONIS TILE INSPECTOR 11/14/19 Justicifation of Admission Dx: Justifications for Admission: Justification of Admission Dx: Yes Angina: Unstable Variant ANANT DONIS APRN Nov 14, 2019 22:51
[2019-11-14] MEDS ORDERED: CLIN150C14 PO (23:11)
--- NOTE | 2019-11-14 23:19 | RAD ---
INDICATION: Reason: Right foot redness / Spl. Instructions: / History: COMPARISON: None. TECHNIQUE: Grayscale, color and doppler ultrasound images were obtained of the right lower extremity venous vasculature. RIGHT: No thrombus identified in the common femoral vein, femoral vein, popliteal vein or visualized calf veins. Edema of soft tissues. IMPRESSION: * No thrombus identified in deep venous system of right lower extremity. Electronically signed by: Dwain Kate MD (11/14/2019 11:16 PM) [id number]
[2019-11-14] MEDS ORDERED: CLINDAMYCIN HCL 150 MG CAPSULE. PO ONE (23:30)
== END 2019-11-14 23:33 | disposition home or self-care (01) ==
LOC: ER 21:33
DX: L03.115 Cellulitis of right lower limb (principal); M79.671 Pain in right foot; I10 Essential (primary) hypertension; Z86.718 Personal history of other venous thrombosis and embolism; Z98.890 Other specified postprocedural states
CPT/HCPCS: 93971; 99284

== ENCOUNTER 2019-11-18 10:52 | Inpatient (IN) | payer BC ==
[~2019-11-18] VITALS: Ht 175.3 cm; Wt 93.6 kg
[~2019-11-18 10:52] MED LIST changes: +CLIN150C14 PO
[2019-11-18 11:26] VITALS: BP 112/66
[2019-11-18] MEDS: ASCORBIC ACID 500 MG TABLET PO SCH (12:00)
[2019-11-18] MEDS: LOSARTAN POTASSIUM 50 MG TABLET. PO SCH (12:00)
[2019-11-18] MEDS: CHOLECALCIFEROL (VITAMIN D3) 1,000 UNIT TABLET PO SCH (12:00)
[2019-11-18] MEDS: hydroCHLOROthiazide 12.5 MG CAPSULE PO SCH (12:00)
[2019-11-18] MEDS: ASPIRIN ENTERIC COATED 81 MG TABLET.DR. PO SCH (12:00)
[2019-11-18 12:23] LABS: PROTHROMBIN TIME PATIENT 13.3 SEC (11.7-14.0)
[2019-11-18 12:34] LABS: CALCIUM 9.3 mg/dL (8.5-10.1); CREATININE 1.2 mg/dL (0.7-1.3); GFR 63.1
[2019-11-18 12:40] LABS: ALBUMIN 3.8 g/dL (3.4-5.0); ALBUMIN/GLOBULIN RATIO 0.9 (1.0-1.7); TOTAL BILIRUBIN 1.3 mg/dL (0.2-1.0); TOTAL PROTEIN 8.1 g/dL (6.4-8.2)
[2019-11-18] MEDS ORDERED: IV RINGERS,LACTATED 1000ML 1,000 ML IV SCH (12:51)
[2019-11-18] MEDS ORDERED: HYDROmorphone 2 MG/ML VIAL IVP PRN (13:00)
[2019-11-18] MEDS ORDERED: fentaNYL PF VIAL 100 MCG/2 ML VIAL IVP PRN ×2 (13:00)
[2019-11-18] MEDS ORDERED: PROCHLORPERAZINE 10 MG/2 ML VIAL. IVP PRN (13:00)
[2019-11-18] MEDS ORDERED: MORPHINE SULFATE 2 MG/ML VIAL. IVP PRN (13:00)
[2019-11-18] MEDS ORDERED: LIDOCAINE 1% PF 2 ML VIAL. ID PRN (13:00)
[2019-11-18] MEDS ORDERED: ONDANSETRON PF 4 MG/2 ML VIAL. IVP PRN (13:00)
--- NOTE | 2019-11-18 13:21 | RAD ---
RIGHT LOWER EXTREMITY DUPLEX ARTERY ULTRASOUND Indication: Reason: Acute right leg pain and coldness / Comparison: None. Procedure: Real-time grayscale, color flow Doppler, and Doppler spectral waveform analysis of the arterial system of the lower extremity is performed. Findings: Normal triphasic waveforms are present in the common femoral artery, superficial femoral artery, popliteal artery, anterior tibial artery, peroneal artery, and proximal posterior tibial artery. There are biphasic waveforms in the distal posterior tibial and dorsalis pedis arteries. No focal elevated peak systolic velocity is seen. There is a Brock's cyst measuring 5 x 1 x 2.4 cm. IMPRESSION: 1. No hemodynamically significant stenosis. 2. Brock's cyst. Electronically signed by: Star Knutson MD (11/18/2019 1:18 PM) [id number]
--- NOTE | 2019-11-18 13:22 | PDOC ---
Provider Note Provider Note Vascular Surgery Consult dictated 54 year old male with severe right knee pain which extends down the leg into the foot. The foot is cool therefore stat ultrasound was done with prelim results s hows patent arterial circulation. The knee has an effusion and was drained by ortho at bedside and now he is going for surgical debridement/washout of the knee. On exam the right foot is pink, slightly cool, intact motor and sensory function. On doppler exam he has triphasic posterior tibial pulses and monophasic dorsalis pedis pulses bilateral. Palpable femoral pulses. No signs of ischemia in the right leg. Right wrist with palpable radial pulse, no hematoma and hand is warm (recent radial access for coronary angiogram and stents last week). No vascular intervention needed at this time. Will follow up on final ultrasound results. Justicifation of Admission Dx: Justifications for Admission: Justification of Admission Dx: Yes Angina: Unstable Variant DAHLIA PAZ MD Nov 18, 2019 13:22
--- NOTE | 2019-11-18 13:44 | CONS ---
DATE OF CONSULTATION: 11/18/2019 CHIEF COMPLAINT: Right leg pain. HISTORY OF PRESENT ILLNESS: The patient is a 54-year-old male who recently underwent a cardiac catheterization through a right radial artery access last week and coronary stenting. He states that yesterday he began developing pain in his right lower leg and foot. This was associated with severe pain in his right knee to the point where he cannot bend his knee or walk on his leg. He was admitted to the hospital by his medical physician and a stat arterial duplex scan was performed, which preliminary report show no significant arterial disease and patency of his vessels. It was also noted that he had a swollen, painful knee, which Orthopedic Surgery evaluated and found an effusion in the right knee, which was drained at the bedside. They are now planning surgical debridement and washout of the right knee for this effusion and infection. He reports no numbness in his right foot. Prior to this, he was able to walk easily on his right leg, had no pain or discomfort in his legs during ambulation and no pain in his feet during rest. He reports no pain in his right hand following the access procedure in his radial artery. He reports no chest pain or shortness of breath. He is continued on his anticoagulation with aspirin and Brilinta since his intervention last week. REVIEW OF SYSTEMS: A 10-point review of systems was performed, which is otherwise negative besides what is mentioned in the history of present illness. PAST MEDICAL HISTORY: Includes: 1. Coronary artery disease with recent coronary catheterization and stenting last week. 2. Hypertension. PAST SURGICAL HISTORY: Includes skin grafting of the right lower leg as a child and intervention on his knee in the past. ALLERGIES: No known drug allergies. MEDICATIONS: Please see his full MAR. PHYSICAL EXAMINATION: GENERAL: The patient is awake and alert, currently he is in no apparent distress, but he is complaining of pain in his right knee. VITAL SIGNS: He is afebrile with a temperature of 98, blood pressure is 112/66, pulse of 66, sats are 98% on room air. NECK: Supple. ABDOMEN: Soft, nondistended, and nontender. EXTREMITIES: His bilateral upper extremities are warm. He has mild bruising of the right wrist from his recent radial artery access; however, his hand is pink and warm with good capillary refill and a palpable radial pulse. His bilateral lower extremities have no significant edema. In his right leg, he has some swelling at the knee and a bandage from the recent drainage procedure. His right foot is slightly cooler than the left foot. It is pink on the plantar aspect with capillary refill. He has intact motor and sensory function in his right foot. On Doppler examination, he has strong dopplerable triphasic blood flow in the posterior tibial location and more monophasic blood flow at the dorsalis pedis location. In comparing this to his left foot, this is very similar exam, his posterior tibial artery is dominant in the left foot as well. He has palpable bilateral femoral pulses and no access attempts noted in the groin or bruising. His right calf is soft and nontender to palpation. There are no signs of compartment syndrome. IMPRESSION: The patient is a 54-year-old male with severe right knee pain secondary to an effusion and infection. He had bedside drainage by Orthopedic Surgery and is going for orthopedic intervention of his right knee. There was worry for potential arterial ischemia to the right leg on his initial presentation; however, he has strong dopplerable flow in the right foot with no signs of ischemia in his foot. Arterial duplex scan was performed and preliminary results show no significant disease. I am awaiting the final results which we will follow up on. No arterial intervention is needed at this point. Recommend he continue treatment of his knee with Orthopedic Surgery. DAHLIA PAZ MD DR: JENNIFER/alecia JOB#: [id number] / [id number]
[2019-11-18 13:58] LABS: BF CLARITY TURBID; BF COLOR YELLOW; BF MON % 11 %; BF PMN % 89 %; BF RBC COUNT 0 /cmm (Not Established); BF SOURCE SYNOVIAL; BF WBC COUNT 31000 /cmm (Not Established)
[2019-11-18] MEDS ORDERED: LIDOCAINE 2% PF 5 ML VIAL. ONE (13:58)
[2019-11-18] MEDS ORDERED: ONDANSETRON PF 4 MG/2 ML VIAL. ONE (13:58)
[2019-11-18] MEDS ORDERED: DEXAMETHASONE SOD PHOS 4 MG/ML VIAL ONE (13:58)
[2019-11-18] MEDS ORDERED: PROPOFOL 10 MG/ML (20ML) VIAL. IV ONE (13:58)
[2019-11-18] MEDS: CLINDAMYCIN HCL 150 MG CAPSULE. PO SCH ×2 (14:00→20:43)
[2019-11-18] MEDS ORDERED: BUPIVACAINE-EPI 0.5%-1:200000 MPF 30 ML VIAL. ONE (14:18)
[2019-11-18] MEDS ORDERED: fentaNYL PF VIAL 100 MCG/2 ML VIAL ONE (15:09)
[2019-11-18] MEDS ORDERED: SEVOFLURANE 61 TO 120 MINUTES. IH ONE (15:52)
--- NOTE | 2019-11-18 15:52 | HP ---
ADMIT DATE: 11/18/2019 MEDICAL HISTORY AND PHYSICAL REASON FOR ADMISSION TO THE HOSPITAL: Right leg swelling, right knee swelling, right foot pain with a bluish discoloration, not able to ambulate because of the knee pain and leg pain. HISTORY OF PRESENT ILLNESS: The patient is a 54-year-old male patient known to me. The patient had a cardiac intervention 2 weeks ago, he had a non-STEMI and had a stent put in LAD and he was on Brilinta. He was doing relatively well and last week, the patient had pain and swelling in the legs, went to the Emergency Room, was diagnosed as possible cellulitis, was put on clindamycin. The patient has a history of previous knee cartilage surgery repair in the past. The patient was seen in the office, is not able to ambulate easily. He is come in wheelchair. Right knee was swollen as well as fluid there, right leg has a bluish discoloration, very cold to touch and the possible diagnosis at this time would be acute ischemia foot and also right knee swelling, recent CAD, but the patient had intervention done through the radial artery. PAST MEDICAL HISTORY: He has hypertension, hyperlipidemia, coronary artery disease, stenting in the LAD. PAST SURGICAL HISTORY: Skin grafting in the right leg as a child. He has some cartilage repair in the past. ALLERGIES: No known drug allergies. MEDICATIONS AT HOME: Aspirin 81 mg daily, atorvastatin 10 mg daily, vitamin D 50,000 weekly, clindamycin was started in the Emergency Room last week, hydrochlorothiazide 12.5 daily, losartan 50 mg daily, metoprolol 25 mg twice a day, Brilinta 90 mg twice a day, ropinirole 0.25 at bedtime. PERSONAL HISTORY: Denies smoking, alcohol, drug abuse. FAMILY HISTORY: Strongly positive for CAD. REVIEW OF SYSTEMS: Denies any chest pain, shortness of breath, but pain in the right knee, not able to walk, foot pain. PHYSICAL EXAMINATION: GENERAL: The patient is in wheelchair. VITAL SIGNS: Temperature 98, pulse 60, respirations 20, blood pressure 112/66, 98 on room air. HEENT: Head is atraumatic. Pupils equal. Oral cavity: No congestion. NECK: Supple. Thyroid not enlarged. JVD not elevated. CHEST: Symmetrical. CARDIOVASCULAR: S1, S2. LUNGS: Clear. ABDOMEN: Soft, bowel sounds are present, no mass palpable. EXTERNAL GENITALIA: No Petty. RECTAL: Deferred. EXTREMITIES: The patient has swelling and tenderness in the right knee, slightly warm and the patient has a bluish discoloration of the right foot, cool to touch and decreased pulses in the leg. LABORATORY DATA: Shows sodium 136, potassium 4.0, chloride 98, bicarbonate 28, BUN 17, creatinine 1.2, glucose 105. Uric acid 7.4. LFTs normal. C-reactive protein 102. INR 1.1. FINAL IMPRESSION: 1. Right knee pain and swelling.Suspect Septic knee. 2. Right lower leg ischemia. 3. Recent coronary artery disease, angioplasty, stenting of left anterior descending. 4. Hypertension. 5. Hyperlipidemia. 6. History of gout. PLAN: At this time, admit to the hospital, stat. We will get arterial Doppler stat, vascular consult stat, orthopedic evaluation and also because of Brilinta. If he goes for a procedure, we will have Cardiology look at the patient to continue Brilinta and also the patient was seen by orthopedic, had a bedside drainage of the fluid was done, was cloudy, which showed 31,000 nucleated cells. Arterial Doppler shows good blood flow, no stenosis and the patient will be evaluated by Infectious Disease in case there is infection causing the problems. Further recommendations to follow. BRAD CASTILLO MD DR: FINESSE/alecia JOB#: [id number] / [id number] MERARY
[2019-11-18] MEDS ORDERED: SEVOFLURANE 31 TO 60 MINUTES. IH ONE (15:56)
[2019-11-18] MEDS ORDERED: VANCOMYCIN PER PHARMACY MC PRN (16:30)
[2019-11-18] MEDS ORDERED: VANCOMYCIN 2 GM in IV NORMAL SALINE 500ML BAG 500 ML IV ONE (16:30)
--- NOTE | 2019-11-18 16:40 | PDOC2 ---
[facility]ENS[facility] CLERK 11/18/19 1640: CARDIAC CONSULT DATE OF CONSULT Date of Consult DATE: 11/18/19 TIME: 1210 REASON FOR CONSULT Reason for Consult: right leg ischemia, recent cardiac stent REFERRING PHYSICIAN Referring Physician: Aakash SOURCE Source: Chart review, Patient HISTORY OF PRESENT ILLNESS HISTORY OF PRESENT ILLNESS This is a pleasant 54 yo male admitted for complains of right foot pain. Reports that this started happening about 2 days ago. Just started while sitting and started having coolness to his right foot and severe pain worse when standing up and better when raising his right leg. Also noted with some bluish discoloration to medial aspect of his foot close to the toes but resolves with elevation. No recent injury or falls and no recent heavy lifting. He recent had coronary stent placement but this was via radial approach. He does not have hx of AFIB which would potentiate embolization. His right foot pulses are dopplerable and true that his right foot is cool to touch but no ischemic changes and RLE arterial doppler shows good flow throughout. He also had recent venous doppler which did not show any DVT. No hx of raynauds and denies any back pain or significant peripheral neuropathy. His foot pain goes up and terminates to his knee. He does however has a right knee bakers cyst. No CP, SOA or palpitations. Denies any back or hip pain. PAST MEDICAL HISTORY Past Medical History Cardiovascular: HTN Pulmonary: No pertinent hx GI: No pertinent hx Heme/Onc: Other (H/o DVT following knee surgery ) Hepatobiliary: No pertinent hx Psych: No pertinent hx Musculoskeletal: Osteoarthritis Rheumatologic: No pertinent hx Infectious disease: No pertinent hx Renal/: No pertinent hx Endocrine: No pertinent hx Dermatology: No pertinent hx PAST SURGICAL HISTORY Past Surgical History bilateral knee surgery and skin graft placement to right calf, PCI FAMILY HISTORY Family History Coronary Artery Disease (brothers and mother ) SOCIAL HISTORY Smoke: No ALCOHOL: none Drugs: None Lives: with Family CURRENT MEDICATIONS CURRENT MEDICATIONS Current Medications Medications (Trade) Dose Ordered Sig/Kathie Route PRN Reason Start Time Stop Time Status Last Admin Dose Admin Ringer's Solution 1,000 ml @ 30 mls/hr Q24H IV 11/18/19 12:51 11/19/19 00:50 11/18/19 12:51 ALLERGIES ALLERGIES: Coded Allergies: No Known Drug Allergies (Unverified , 02/26/16) ROS Review of System 14 point ROS evaluated with pertinent positives noted per HPI PHYSICAL EXAM General: Alert, Oriented X3, Cooperative, No acute distress HEENT: Atraumatic, Mucous membr. moist/pink Lungs: Clear to auscultation, Normal air movement Heart: Regular rate (SR), Normal S1, Normal S2, No murmurs Abdomen: Soft, No tenderness Extremities: No cyanosis, No edema, Other (right foot coolness but no ischemic changes. +DP/PT) Skin: No breakdown, No significant lesion Neuro: Normal speech, Sensation intact Psych/Mental Status: Mental status NL, Mood NL MUSCULOSKELETAL: Osteoarthritic changes both hands VITALS/I&O VITALS/I&O: Vital Signs Date Time Temp Pulse Resp B/P (MAP) Pulse Ox O2 Delivery O2 Flow Rate FiO2 11/18/19 16:06 Mask 10 11/18/19 16:06 97.8 68 16 112/46 100 97.8 LABS Lab: Laboratory Tests Test 11/18/19 12:00 11/18/19 12:21 11/18/19 13:57 Prothrombin Time 13.3 SEC (11.7-14.0) Prothrombin Time INR 1.1 (0.8-1.1) Sodium Level 136 mmol/L (136-145) Potassium Level 4.0 mmol/L (3.5-5.1) Chloride Level 98 mmol/L (98-107) Carbon Dioxide Level 28 mmol/L (21-32) Anion Gap 10 (6-14) Blood Urea Nitrogen 17 mg/dL (8-26) Creatinine 1.2 mg/dL (0.7-1.3) Estimated GFR (Cockcroft-Gault) 63.1 BUN/Creatinine Ratio 14 (6-20) Glucose Level 105 mg/dL (70-99) H Uric Acid 7.4 mg/dL (3.5-7.2) H Calcium Level 9.3 mg/dL (8.5-10.1) Total Bilirubin 1.3 mg/dL (0.2-1.0) H Aspartate Amino Transferase (AST) 21 U/L (15-37) Alanine Aminotransferase (ALT) 43 U/L (16-63) Alkaline Phosphatase 46 U/L (46-116) C-Reactive Protein, Quantitative 102.9 mg/L (0-3.3) H Total Protein 8.1 g/dL (6.4-8.2) Albumin 3.8 g/dL (3.4-5.0) Albumin/Globulin Ratio 0.9 (1.0-1.7) L Body Fluid Source Synovial Body Fluid Color Yellow Body Fluid Clarity Turbid Body Fluid Nucleated Cells 41795 /cmm (Not Body Fluid Mononuclear WBCs (%) 11 % Body Fluid Polymorphonuclear Cells 89 % Body Fluid Total RBCs Counted 0 /cmm (Not Established) SARS-CoV-2 Antigen (Rapid) Negative (NEGATIVE) Laboratory Tests 11/18/19 12:00 ECHOCARDIOGRAM ECHOCARDIOGRAM <Conclusion> Left ventricle systolic function is low normal. The Ejection Fraction is 50-55%. There is normal LV segmental wall motion. DATE: 11/08/19 1702 HEART CATH HEART CATH Conclusion 1. Severe single-vessel coronary artery disease involving left anterior descending artery 2. Successful PCI/drug-eluting stent placement to the left anterior descending artery Recommendations 1. Aspirin 81 mg daily 2. Ticagrelor 90 mg twice daily 3. Cardiovascular risk factor modification. DATE: 11/08/19 1444 ASSESSMENT/PLAN ASSESSMENT/PLAN 1. Right foot poikilothermia/pain and right knee pain: possible nerve impingement +for bakers cyst awaiting ortho/vascular input. 2. CAD: recent PCI/LALITO via radial approach to LAD 11/08/2019 3. HTN: controlled 4. HLP 5. Hyperuricemia Recommendations 1. Secondary prevention measures including DAPT with ASA and Brilinta. 2. No significant arterial flow issues to RLE. Await input from consultants 3. Obtain CRP SINDI PEDRAZA MD 11/18/19 1727: CARDIAC CONSULT ASSESSMENT/PLAN ASSESSMENT/PLAN Patient seen and examined. Agree with NUTRITION EDUCATOR's assessment and plan. Lower extremity arterial duplex scan did not show any significant peripheral artery stenosis. Patient probably has septic arthritis per orthopedics team. CAD status clinically stable. Patient does not have hemarthrosis and hence continue DAPT. Thank you for your consultation. ROSS KIRK APRN Nov 18, 2019 16:40 SINDI PEDRAZA MD Nov 18, 2019 17:27
--- NOTE | 2019-11-18 16:49 | PDOC4 ---
Operative Note Operative Note Date of surgery: 11/18/2019 Preoperative diagnosis: Right knee effusion and concern for septic joint Postoperative diagnosis: Same with partial-thickness chondral defect and fraying medial femoral condyle and free edge lateral meniscus tear Operative procedure: Right knee arthroscopy with irrigation debridement of sept ic knee, chondroplasty medial femoral condyle and partial lateral meniscectomy Surgeon: Patricia Anesthesia: General Estimated blood loss: 20 cc Complications: None Operative indications: Please see my dictated orthopedic consultation for detailed operative indications and note that the patient had severe knee pain with any range of motion has an effusion holding the knee in about 20 degrees of flexion very painful to move it and had a knee aspiration due to concern for septic arthritis which showed a markedly elevated white blood cell count with left shift. I went over with he and his the concern for infection in the joint based on the aspiration results as well as his clinical picture. We talked about the possibility of damage to the joint with ongoing infection and the recommended debridement procedure arthroscopically and that we would address any other findings in the knee as appropriate. He agrees to proceed with surgical evaluation and treatment having given informed consent Operative text: Patient was identified procedure verified patient placed in the supine position on the operating table. After adequate amounts of general anesthesia were administered the right lower extremity was prepped and draped in standard sterile fashion with a thigh tourniquet. After timeout was performed patient procedure identified and verified tourniquet was inflated to 300 mmHg a lateral portal was established medial portal established using spinal needle localization and the right knee joint was systematically examined. He was noted to have cloudy joint fluid as expected from his aspiration results and some fibrinous exudate throughout the knee joint as well as some findings of calcium pyrophosphate deposition in the synovium and lateral meniscus primarily. After clearing the fluid for adequate visualization the medial meniscus was probed and found to be intact. The medial femoral condyle was noted to have a partial- thickness defect with some chondral flap tearing and fraying which was trimmed back to stable tissue using the arthroscopic shaver with about a quarter sized partial-thickness defect. ACL was probed and found to be intact. In the lateral compartment he had free edge tearing of the lateral meniscus primarily in the body area extending to the anterior and posterior horns which was trimmed back to stable tissue using an arthroscopic punch and shaver. There was noted some calcium pyrophosphate deposition in the lateral meniscus as well as the synovium. Synovium and fibrinous tissue were debrided and removed. No loose bodies were noted otherwise in the gutters or suprapatellar pouch area. A total of 6 L of normal saline solution were flushed through the knee during this process and the knee was drained of arthroscopic fluid portals closed with nylon suture sterile dressings were applied patient was returned to recovery room in stable condition having tolerated procedure well RODNEY INTERIANO MD Nov 18, 2019 16:49
[2019-11-18] MEDS: CEFEPIME HCL IV Push 1 GM VIAL. IVP SCH ×2 (17:24→22:12)
--- NOTE | 2019-11-18 17:56 | CONS ---
DATE OF CONSULTATION: 11/18/2019 ORTHOPEDIC CONSULTATION REASON FOR CONSULTATION: Right leg pain. HISTORY OF PRESENT ILLNESS: The patient is a 54-year-old male that indicates a recent history of severe right lower extremity pain that started in his foot last Thursday. He had come into the Emergency Department due to the severity and indicates that an ultrasound at that time was negative. He was perhaps concerned for a blood clot due to some swelling. He said that the foot was changing colors as it was hung down, but x-rays were negative and a subsequent Orthopedic Clinic visit early this week, where he apparently saw Mr. Diaz. He says since then, he really cannot walk on the knee at all. Since yesterday, the knee hurts and has been very swollen. The foot does not seem as severe, but he was concerned as he was having severe pain, numbness and inability to walk on the foot. He notes a history of previous bilateral knee surgeries by Dr. Garcia in the past, the right knee more remotely where apparently some type of ____ to his patellar tendon and meniscal surgery as well. He denies any recent fever, chills, or other joint pain. No history of gout or other inflammatory disease or really other recent illness at all. PAST MEDICAL HISTORY: Significant for coronary artery disease. PAST SURGICAL HISTORY: Cardiac stent that was placed a couple of weeks ago by Dr. Mitchell and has been uneventful since then. He denies any subsequent chest pain or symptoms. FAMILY HISTORY: Noncontributory. SOCIAL HISTORY: His is with him currently. No history of drug use. REVIEW OF SYSTEMS: Significant for the right lower extremity pain and the more recent knee swelling as described above. Denies any other joint pain, radiating pain in the extremities, chest pain, shortness of breath, febrile illness or other constitutional symptoms. PHYSICAL EXAMINATION: VITAL SIGNS: Reviewed. He is afebrile. HEENT: Atraumatic, normocephalic. HEART: Regular rate and rhythm. LUNGS: Clear to auscultation. ABDOMEN: Benign. EXTREMITIES: On examination of the extremities, the right knee has an effusion and hurts to move from a position of slight flexion and the position of comfort. With flexion and extension of his right ankle, he has tenderness in the knee itself and some fullness in the popliteal fossa. He has good alignment and stability of bilateral hips and ankles. Ligaments are stable in bilateral knees. The left knee shows no effusion. There is really no redness, warmth or erythema, specifically on either knee, but very painful throughout any palpation of the right knee. Upper extremity motion is full with normal alignment and stability of bilateral shoulders, elbows and wrists and a negative straight leg raise sign is present on either side. A lower extremity ultrasound was being performed at that time, I was in the room evaluating him and appeared to be negative for any type of DVT and his arterial flow was noted to be normal with biphasic pulses down to his anterior tibial and posterior tibial. Likewise to examination, his pulses were palpable as well. IMPRESSION: 1. Severe right knee pain and effusion. 2. History of right lower extremity pain with previous foot pain. TREATMENT PLAN: I went over with he and his that my concern with his right knee pain and swelling out of nowhere as he may just have an inflammatory condition of the knee; however, it is possible that he may have an infected knee based on the severity of his pain and the suddeness. He asked where this might have come from and I told him I really do not have any idea about that, but I would suggest an aspiration of the knee to further diagnose as his examination really seem to be pretty normal other than the swelling and severe pain with any movement of his knee, particularly even the symptomatic foot previously does not seem to be much of an issue at this point. After informed consent was obtained, the right knee was aspirated for about 60 mL of cloudy appearing fluid, which was sent stat for cell count, Gram stain, aerobic and anaerobic cultures. I went over with him that if we see elevated white count, suspicious for potential infection, we would likely bring him down for an arthroscopic procedure to irrigation, debridement are another words to wash out the knee and dilute any infection present and consult Infectious Disease doctors as well if necessary. I am currently awaiting word back on the laboratory results and he is n.p.o. in the interim having eaten nothing since last night and only coffee early this morning. RODNEY INTERIANO MD DR: HENRIQUE/alecia JOB#: [id number] / [id number]
--- NOTE | 2019-11-18 17:59 | NUR ---
Pharmacy Vancomycin Dosing Note S:Consulted to monitor and dose vancomycin started 11/18/19. O:YONY MILAN is a 54 year old M with septic arthritis . Height: 5 feet, 9 inches Weight: 92.0 kg [place] Body Weight: 70.70 Adjusted Body Weight: 79.22 Dosing Weight: Actual Other Antibiotics: Cefepime 1g q8h LABS: Last BUN: 17 Last Creatinine: 1.2 Creatinine Clearance: 78 mL/min Last WBC: Last Procalcitonin: Tmax (past 24 hours): 99.5 I/O: 1250/25 Last dose given 11/18/19 at 1724 Vancomycin Dosing: Loading Dose: 2000 mg x1 Dosing Weight: Actual Target Trough: 15-20 A: Based on: weight and renal function P: 1. Begin Vancomycin 1250 mg IV q12h 2. Follow up Trough level on 11/20/19 at 0500 3. Pharmacy will continue to monitor, follow and adjust therapy as needed. Marbella Ponce [facility], 11/18/19 [id number]
[2019-11-18] MEDS: HYDROcodone/APAP 10/325 1 TAB TABLET PO PRN (18:25)
[2019-11-18 19:40] VITALS: BP 114/72
[2019-11-18] MEDS: METOPROLOL TART IMMED RELEASE 25 MG TABLET. PO SCH (20:43)
[2019-11-18] MEDS: TICAGRELOR 90 MG TABLET. PO SCH (20:43)
[2019-11-18] MEDS: ACETAMINOPHEN 325 MG TABLET. PO PRN (20:43)
[2019-11-18] MEDS: ATORVASTATIN CALCIUM 10 MG TABLET. PO SCH (20:43)
[2019-11-18] MEDS: rOPINIRole 0.25 MG TABLET. PO SCH (20:43)
[2019-11-18] MEDS: MORPHINE SULFATE 2 MG/ML VIAL. IV PRN ×2 (20:44→22:24)
[2019-11-18 23:45] VITALS: BP 145/79
[2019-11-19] MEDS: HYDROcodone/APAP 10/325 1 TAB TABLET PO PRN ×4 (01:21→20:59)
[2019-11-19 03:40] VITALS: BP 118/68
[2019-11-19 04:06] LABS: BASO % 0 % (0-3); EOS % 0 % (0-3); HEMATOCRIT 40.5 % (39.0-53.0); HEMOGLOBIN 13.8 g/dL (13.0-17.5); LYMPH # 1.3 x10^3/uL (1.0-4.8); LYMPH % 11 % (24-48); MEAN CORPUSCULAR HEMOGLOBIN 30 pg (25-35); MEAN CORPUSCULAR HGB CONC 34 g/dL (31-37); MEAN CORPUSCULAR VOLUME 87 fL (79-100); MONO % 9 % (0-9); NEUT # 9.2 x10^3/uL (1.8-7.7); NEUT % 80 % (31-73); PLATELET COUNT 279 x10^3/uL (140-400); RED BLOOD COUNT 4.66 x10^6/uL (4.30-5.70); RED CELL DISTRIBUTION WIDTH 13.3 % (11.5-14.5); WHITE BLOOD COUNT 11.6 x10^3/uL (4.0-11.0)
[2019-11-19 04:19] LABS: GFR 77.9
[2019-11-19] MEDS ORDERED: VANCOMYCIN 1.25 GM in IV NORMAL SALINE 250ML 250 ML IV SCH (05:30)
[2019-11-19] MEDS: CEFEPIME HCL IV Push 1 GM VIAL. IVP SCH ×3 (05:37→21:00)
[2019-11-19] MEDS: ACETAMINOPHEN 325 MG TABLET. PO PRN (05:37)
[2019-11-19] MEDS: MORPHINE SULFATE 2 MG/ML VIAL. IV PRN (05:39)
[2019-11-19 07:00] VITALS: BP 122/76
--- NOTE | 2019-11-19 07:33 | PDOC ---
Infectious Disease Note Vital Sign Vital Signs Vital Signs Date Time Temp Pulse Resp B/P (MAP) Pulse Ox O2 Delivery O2 Flow Rate FiO2 11/19/19 06:09 20 Room Air 11/19/19 03:40 98.8 82 118/68 (85) 96 98.8 11/18/19 21:14 10.0 Labs Lab Laboratory Tests Test 11/18/19 12:00 11/18/19 12:21 11/18/19 13:57 11/19/19 04:00 Prothrombin Time 13.3 SEC (11.7-14.0) Prothromb Time International Ratio 1.1 (0.8-1.1) Sodium Level 136 mmol/L (136-145) Potassium Level 4.0 mmol/L (3.5-5.1) Chloride Level 98 mmol/L (98-107) Carbon Dioxide Level 28 mmol/L (21-32) Anion Gap 10 (6-14) Blood Urea Nitrogen 17 mg/dL (8-26) Creatinine 1.2 mg/dL (0.7-1.3) 1.0 mg/dL (0.7-1.3) Estimated GFR (Cockcroft-Gault) 63.1 77.9 BUN/Creatinine Ratio 14 (6-20) Glucose Level 105 mg/dL (70-99) Uric Acid 7.4 mg/dL (3.5-7.2) Calcium Level 9.3 mg/dL (8.5-10.1) Total Bilirubin 1.3 mg/dL (0.2-1.0) Aspartate Amino Transf (AST/SGOT) 21 U/L (15-37) Alanine Aminotransferase (ALT/SGPT) 43 U/L (16-63) Alkaline Phosphatase 46 U/L (46-116) C-Reactive Protein, Quantitative 102.9 mg/L (0-3.3) Total Protein 8.1 g/dL (6.4-8.2) Albumin 3.8 g/dL (3.4-5.0) Albumin/Globulin Ratio 0.9 (1.0-1.7) Body Fluid Source Synovial Body Fluid Color Yellow Body Fluid Clarity Turbid Body Fluid Nucleated Cells 10522 /cmm (Not Body Fluid Mononuclear WBCs (%) 11 % Body Fluid Polymorphonuclear Cells 89 % Body Fluid Total RBCs Counted 0 /cmm (Not Established) SARS-CoV-2 Antigen (Rapid) Negative (NEGATIVE) White Blood Count 11.6 x10^3/uL (4.0-11.0) Red Blood Count 4.66 x10^6/uL (4.30-5.70) Hemoglobin 13.8 g/dL (13.0-17.5) Hematocrit 40.5 % (39.0-53.0) Mean Corpuscular Volume 87 fL (79-100) Mean Corpuscular Hemoglobin 30 pg (25-35) Mean Corpuscular Hemoglobin Concent 34 g/dL (31-37) Red Cell Distribution Width 13.3 % (11.5-14.5) Platelet Count 279 x10^3/uL (140-400) Neutrophils (%) (Auto) 80 % (31-73) Lymphocytes (%) (Auto) 11 % (24-48) Monocytes (%) (Auto) 9 % (0-9) Eosinophils (%) (Auto) 0 % (0-3) Basophils (%) (Auto) 0 % (0-3) Neutrophils # (Auto) 9.2 x10^3/uL (1.8-7.7) Lymphocytes # (Auto) 1.3 x10^3/uL (1.0-4.8) Monocytes # (Auto) 1.0 x10^3/uL (0.0-1.1) Eosinophils # (Auto) 0.0 x10^3/uL (0.0-0.7) Basophils # (Auto) 0.0 x10^3/uL (0.0-0.2) Micro Microbiology 11/18/19 Gram Stain - Final, Resulted 11/18/19 Aerobic and Anaerobic Culture, Resulted Pending Objective Assessment Fever leukocytosis - s/p Solummedrol and post op Septic r knee s/p I and D 11/17 GABBIE - better Plan Plan of Care Added Cefepime/Crystals 11/17 D/c Vanc and dose Dapto F/u labs/cults and crystals Thank you # [id number] ROB CRAFT MD Nov 19, 2019 07:33
[2019-11-19] MEDS: ASPIRIN ENTERIC COATED 81 MG TABLET.DR. PO SCH (08:16)
[2019-11-19] MEDS: CHOLECALCIFEROL (VITAMIN D3) 1,000 UNIT TABLET PO SCH (08:16)
[2019-11-19] MEDS: hydroCHLOROthiazide 12.5 MG CAPSULE PO SCH (08:16)
[2019-11-19] MEDS: ASCORBIC ACID 500 MG TABLET PO SCH (08:17)
[2019-11-19] MEDS: TICAGRELOR 90 MG TABLET. PO SCH ×2 (08:17→20:59)
[2019-11-19] MEDS: LOSARTAN POTASSIUM 50 MG TABLET. PO SCH (08:17)
[2019-11-19] MEDS: METOPROLOL TART IMMED RELEASE 25 MG TABLET. PO SCH ×2 (08:17→20:59)
[2019-11-19] MEDS: CLINDAMYCIN HCL 150 MG CAPSULE. PO SCH (08:17)
--- NOTE | 2019-11-19 09:13 | CONS ---
DATE OF CONSULTATION: 11/19/2019 INFECTIOUS DISEASE CONSULTATION NOTE PATIENT'S ROOM: 210. REQUESTING PHYSICIAN: Dr. Gomez. REASON FOR CONSULTATION: Septic knee. HISTORY OF PRESENT ILLNESS: The patient is a pleasant 54-year-old gentleman without significant past medical history aside from coronary artery disease and a cardiac stent was placed a couple of weeks ago, but they went up through his right upper extremity. He awakened on Thursday, had some pain in his foot that progressed, over the course of the week, he was seen in the [facility] and evaluated, but no acute complication was found There was concern for some swelling. He states that his foot had changed colors, but x-rays were negative. He then followed up again in the Orthopedic Clinic and his knee was aspirated, had been swollen, his foot improved. After his knee was aspirated, it appeared to be fairly cloudy. He was admitted to [facility], was taken to the operating room on 11/18/[address] Gomez, who performed a right knee arthroscopy, irrigation and debridement of a septic knee, chondroplasty of medial femoral condyle and partial lateral meniscectomy. He was placed on vancomycin. I was consulted. I added cefepime and also requested crystals to be evaluated. Currently, the patient is lying in bed, states he is feeling better. He did not have any fevers or chills. He did have a little sweat and states that his leg felt hot, but that is improved. He has no headache, sinus issues, sore throat, cough. No nausea, vomiting, diarrhea. No dysuria, frequency, urgency and denies any trauma or falls or punctures. PAST MEDICAL HISTORY: Positive for coronary artery disease, hypertension, hyperlipidemia. PAST SURGICAL HISTORY: Positive for stenting to the LAD. He has had skin grafting to his right leg. He has had a vasectomy and bilateral knee surgeries. REVIEW OF SYSTEMS: Otherwise negative. ALLERGIES: No known drug allergies. SOCIAL HISTORY: He is . He has no pets. 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 No tobacco, no alcohol. No chewing. FAMILY HISTORY: Positive for coronary artery disease and his brother had gout. CURRENT MEDICATIONS: Include vancomycin, ascorbic acid, aspirin, Lipitor, cefepime, hydrochlorothiazide, metoprolol, Requip, and Brilinta. Other meds are available and reviewed in the chart. He did have dexamethasone yesterday with the surgery. PHYSICAL EXAMINATION: VITAL SIGNS: Temperature 98.8, pulse 82, respirations 20, blood pressure 118/68. Did have a temperature of 99.5 previously. CONSTITUTIONAL: He is lying in bed. He is cooperative. He is in no acute distress. HEENT: Pupils equal and reactive. He has normal conjunctivae. Oral cavity, pharynx is clear. NECK: Supple. Good range of motion. LUNGS: Clear to auscultation bilaterally. HEART: S1, S2. ABDOMEN: Soft, nontender, no guarding or rebound. EXTREMITIES: Without clubbing, cyanosis. Right knee has a postoperative dressing in place. His right foot has trace edema. He has good sensation. He moves all extremities and has good pulses. SKIN: Warm to touch without signs of rash. NEUROLOGIC: Nonfocal. PSYCHIATRIC: Affect is appropriate. LABORATORY VALUES: White count from the 10th was 6.8, currently is 11.6, hemoglobin 13.8, platelets 279, neutrophils are 80. Creatinine on arrival was 1.2, today is 1. Normal liver function study tests. CRP was 102.9. Synovial fluid had 31,000 white cells, 89% polymorphs. COVID test was negative. 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 IMPRESSION: 1. Fever. 2. Leukocytosis, status post Solu-Medrol and postop. 3. Septic right knee, status post incision and drainage on 11/18/2019. 4. Acute kidney injury that is better. RECOMMENDATIONS: Added cefepime and asked for crystals on the . We will discontinue the vancomycin and dose Zosyn for now. Follow up labs, cultures and crystals. Thank you for allowing me to see and participate in the patient's care. If you have any further questions, please do not hesitate to contact me. ROB CRAFT MD DR: NOLAN/alecia JOB#: [id number] / [id number]
--- NOTE | 2019-11-19 10:50 | PDOC ---
PROGRESS NOTES Date of Service: DATE: 11/19/19 TIME: 10:49 Subjective Subjective feels much better today Objective Objective Vital Signs Date Time Temp Pulse Resp B/P (MAP) Pulse Ox O2 Delivery O2 Flow Rate FiO2 11/19/19 08:17 66 122/76 11/19/19 07:00 97.4 18 96 Room Air 97.4 11/18/19 21:14 10.0 Intake and Output 11/19/19 07:00 Intake Total 2250 ml Output Total 1475 ml Balance 775 ml Intake Oral 1200 ml IV Total 1050 ml Output Urine Total 1450 ml Estimated Blood Loss 25 ml Physical Exam Abdomen: Soft, No tenderness Heart: Regular rate (SR), Normal S1, Normal S2, No murmurs Extremities: No cyanosis, No edema, Other (right foot coolness but no ischemic changes. +DP/PT) General: Alert, Oriented X3, Cooperative, No acute distress HEENT: Atraumatic, Mucous membr. moist/pink Lungs: Clear to auscultation, Normal air movement MUSCULOSKELETAL: Osteoarthritic changes both hands Neuro: Normal speech, Sensation intact Psych/Mental Status: Mental status NL, Mood NL Skin: No breakdown, No significant lesion COMMENT rt foot good blood flow Assessment Assessment FINAL IMPRESSION: 1. Right knee pain and swelling.?septic knee 2. Right lower leg ischemia. 3. Recent coronary artery disease, angioplasty, stenting of left anterior descending. 4. Hypertension. 5. Hyperlipidemia. 6. History of gout. PLAN: IV antibiotics vanco+zosyn. Date of surgery: 11/18/2019 Preoperative diagnosis: Right knee effusion and concern for septic joint Postoperative diagnosis: Same with partial-thickness chondral defect and fraying medial femoral condyle and free edge lateral meniscus tear Operative procedure: Right knee arthroscopy with irrigation debridement of septic knee, chondroplasty medial femoral condyle and partial lateral meniscectomy Surgeon: Patricia. Arteial doppler good blood flow Rt knee joint aspiration 30,000 wbc At this time, admit to the hospital, stat. We will get arterial Doppler stat, vascular consult stat, orthopedic evaluation and also because of Brilinta. If he goes for a procedure, we will have Cardiology look at the patient to continue Brilinta and also the patient was seen by orthopedic, had a bedside drainage of the fluid was done, was cloudy, which showed 31,000 nucleated cells. Arterial Doppler shows good blood flow, no stenosis and the patient will be evaluated by Infectious Disease in case there is infection causing the problems. Further recommendations to follow. Comment Review of Relevant I have reviewed the following items dread (where applicable) has been applied. Labs Laboratory Tests Test 11/18/19 12:00 11/18/19 12:21 11/18/19 13:57 11/19/19 04:00 Prothrombin Time 13.3 SEC (11.7-14.0) Prothromb Time International Ratio 1.1 (0.8-1.1) Sodium Level 136 mmol/L (136-145) Potassium Level 4.0 mmol/L (3.5-5.1) Chloride Level 98 mmol/L (98-107) Carbon Dioxide Level 28 mmol/L (21-32) Anion Gap 10 (6-14) Blood Urea Nitrogen 17 mg/dL (8-26) Creatinine 1.2 mg/dL (0.7-1.3) 1.0 mg/dL (0.7-1.3) Estimated GFR (Cockcroft-Gault) 63.1 77.9 BUN/Creatinine Ratio 14 (6-20) Glucose Level 105 mg/dL (70-99) Uric Acid 7.4 mg/dL (3.5-7.2) Calcium Level 9.3 mg/dL (8.5-10.1) Total Bilirubin 1.3 mg/dL (0.2-1.0) Aspartate Amino Transf (AST/SGOT) 21 U/L (15-37) Alanine Aminotransferase (ALT/SGPT) 43 U/L (16-63) Alkaline Phosphatase 46 U/L (46-116) C-Reactive Protein, Quantitative 102.9 mg/L (0-3.3) Total Protein 8.1 g/dL (6.4-8.2) Albumin 3.8 g/dL (3.4-5.0) Albumin/Globulin Ratio 0.9 (1.0-1.7) Body Fluid Source Synovial Body Fluid Color Yellow Body Fluid Clarity Turbid Body Fluid Nucleated Cells 08990 /cmm (Not Body Fluid Mononuclear WBCs (%) 11 % Body Fluid Polymorphonuclear Cells 89 % Body Fluid Total RBCs Counted 0 /cmm (Not Established) SARS-CoV-2 Antigen (Rapid) Negative (NEGATIVE) White Blood Count 11.6 x10^3/uL (4.0-11.0) Red Blood Count 4.66 x10^6/uL (4.30-5.70) Hemoglobin 13.8 g/dL (13.0-17.5) Hematocrit 40.5 % (39.0-53.0) Mean Corpuscular Volume 87 fL (79-100) Mean Corpuscular Hemoglobin 30 pg (25-35) Mean Corpuscular Hemoglobin Concent 34 g/dL (31-37) Red Cell Distribution Width 13.3 % (11.5-14.5) Platelet Count 279 x10^3/uL (140-400) Neutrophils (%) (Auto) 80 % (31-73) Lymphocytes (%) (Auto) 11 % (24-48) Monocytes (%) (Auto) 9 % (0-9) Eosinophils (%) (Auto) 0 % (0-3) Basophils (%) (Auto) 0 % (0-3) Neutrophils # (Auto) 9.2 x10^3/uL (1.8-7.7) Lymphocytes # (Auto) 1.3 x10^3/uL (1.0-4.8) Monocytes # (Auto) 1.0 x10^3/uL (0.0-1.1) Eosinophils # (Auto) 0.0 x10^3/uL (0.0-0.7) Basophils # (Auto) 0.0 x10^3/uL (0.0-0.2) Creatine Kinase 64 U/L (39-308) Microbiology 11/18/19 Gram Stain - Final, Resulted 11/18/19 Aerobic and Anaerobic Culture - Preliminary, Resulted Medications Current Medications Acetaminophen (Tylenol) 650 mg PRN Q8HRS PRN PO MILD PAIN / TEMP > 100.3'F Last administered on 11/19/19at 05:37; Start 11/18/19 at 11:45 Acetaminophen/ Hydrocodone Bitart (Lortab 10325) 1 tab PRN Q6HRS PRN PO PAIN Last administered on 11/19/19at 08:17; Start 11/18/19 at 18:15 Ascorbic Acid (Vitamin C) 1,000 mg DAILY PO Last administered on 11/19/19at 08:17; Start 11/18/19 at 12:00 Aspirin (Ecotrin) 81 mg DAILYWBKFT PO Last administered on 11/19/19at 08:16; Start 11/18/19 at 12:00 Atorvastatin Calcium (Lipitor) 10 mg HS PO Last administered on 11/18/19at 20:43; Start 11/18/19 at 21:00 Bupivacaine HCl/ Epinephrine Bitart (Sensorcain-Epi 0.5%-1:632078 Mpf) 30 ml STK-MED ONCE .ROUTE ; Start 11/18/19 at 14:18; Stop 11/18/19 at 14:18; Status DC Cefepime HCl (Maxipime) 1 gm Q8HRS IVP Last administered on 11/19/19at 05:37; Start 11/18/19 at 16:15 Clindamycin HCl (Cleocin) 450 mg TID PO Last administered on 11/19/19at 08:17; Start 11/18/19 at 14:00 Daptomycin 500 mg/ Sodium Chloride 50 ml @ 100 mls/hr Q24H IV ; Start 11/19/19 at 09:00 Dexamethasone Sodium Phosphate (Decadron) 4 mg STK-MED ONCE .ROUTE ; Start 11/18/19 at 13:58; Stop 11/18/19 at 13:58; Status DC Fentanyl Citrate (Fentanyl 2ml Vial) 25 mcg PRN Q5MIN PRN IVP MILD PAIN 1-3; Start 11/18/19 at 13:00; Stop 11/18/19 at 20:00; Status DC Fentanyl Citrate (Fentanyl 2ml Vial) 50 mcg PRN Q5MIN PRN IVP MODERATE TO SEVERE PAIN; Start 11/18/19 at 13:00; Stop 11/18/19 at 20:00; Status DC Fentanyl Citrate (Fentanyl 2ml Vial) 100 mcg STK-MED ONCE .ROUTE ; Start 11/18/19 at 15:09; Stop 11/18/19 at 15:10; Status DC Hydrochlorothiazide (Microzide) 12.5 mg DAILY PO Last administered on 11/19/19at 08:16; Start 11/18/19 at 12:00 Hydromorphone HCl (Dilaudid) 0.5 mg PRN Q10MIN PRN IVP SEV PAIN, Second choice; Start 11/18/19 at 13:00; Stop 11/18/19 at 20:00; Status DC Lidocaine HCl (Lidocaine Pf 2% Vial) 5 ml STK-MED ONCE .ROUTE ; Start 11/18/19 at 13:58; Stop 11/18/19 at 13:58; Status DC Lidocaine HCl (Xylocaine-Mpf 1% 2ml Vial) 2 ml 1X PRN PRN ID IV START; Start 11/18/19 at 13:00; Stop 11/18/19 at 20:00; Status DC Losartan Potassium (Cozaar) 50 mg DAILY PO Last administered on 11/19/19at 08:17; Start 11/18/19 at 12:00 Metoprolol Tartrate (Lopressor) 25 mg BID PO Last administered on 11/19/19at 08:17; Start 11/18/19 at 21:00 Morphine Sulfate (Morphine Sulfate) 1 mg PRN Q10MIN PRN IVP SEVERE PAIN 7-10; Start 11/18/19 at 13:00; Stop 11/18/19 at 20:00; Status DC Morphine Sulfate (Morphine Sulfate) 2 mg PRN Q2HR PRN IV PAIN Last administered on 11/19/19at 05:39; Start 11/18/19 at 18:15 Ondansetron HCl (Zofran) 4 mg PRN Q6HRS PRN IVP NAUSEA/VOMITING; Start 11/18/19 at 13:00; Stop 11/19/19 at 12:59 Ondansetron HCl (Zofran) 4 mg STK-MED ONCE .ROUTE ; Start 11/18/19 at 13:58; Stop 11/18/19 at 13:58; Status DC Prochlorperazine Edisylate (Compazine) 5 mg PACU PRN PRN IVP NAUSEA, MRX1; Start 11/18/19 at 13:00; Stop 11/18/19 at 20:00; Status DC Propofol (Diprivan) 200 mg STK-MED ONCE IV ; Start 11/18/19 at 13:58; Stop 11/18/19 at 13:58; Status DC Ringer's Solution 1,000 ml @ 30 mls/hr Q24H IV Last administered on 11/18/19at 12:51; Start 11/18/19 at 12:51; Stop 11/19/19 at 00:50; Status DC Ropinirole HCl (Requip) 0.25 mg HS PO Last administered on 11/18/19at 20:43; Start 11/18/19 at 21:00 Sevoflurane (Ultane) 30 ml STK-MED ONCE IH ; Start 11/18/19 at 15:56; Stop 11/18/19 at 15:56; Status DC Sevoflurane (Ultane) 60 ml STK-MED ONCE IH ; Start 11/18/19 at 15:52; Stop 11/18/19 at 15:52; Status DC Ticagrelor (Brilinta) 90 mg BID PO Last administered on 11/19/19at 08:17; Start 11/18/19 at 21:00 Vancomycin HCl (Vanco Per Pharmacy) 1 each PRN DAILY PRN MC SEE COMMENTS Last administered on 11/18/19at 17:56; Start 11/18/19 at 16:30; Stop 11/19/19 at 07:26; Status DC Vancomycin HCl (Vancomycin Trough Level) 1 each 1X ONCE MC ; Start 11/20/19 at 05:00; Stop 11/20/19 at 05:01; Status Cancel Vancomycin HCl 1.25 gm/Sodium Chloride 250 ml @ 167 mls/hr Q12H IV Last administered on 11/19/19at 05:38; Start 11/19/19 at 05:30; Stop 11/19/19 at 07:26; Status DC Vancomycin HCl 2 gm/Sodium Chloride 500 ml @ 250 mls/hr 1X ONCE IV Last administered on 11/18/19at 17:24; Start 11/18/19 at 16:30; Stop 11/18/19 at 18:29; Status DC Vitamin D (Vitamin D3) 2,000 unit DAILY PO Last administered on 11/19/19at 08:16; Start 11/18/19 at 12:00 Vitals/I & O Vital Sign - Last 24 Hours 11/18/19 11/18/19 11/18/19 11/18/19 11:26 13:39 16:06 16:06 Temp 98.0 98.0 97.8 98.0 98.0 97.8 Pulse 66 68 68 Resp 20 15 16 B/P (MAP) 112/66 (81) 134/69 112/46 Pulse Ox 98 97 100 O2 Delivery Room Air Simple Mask Mask O2 Flow Rate 10 10 11/18/19 11/18/19 11/18/19 11/18/19 16:22 16:37 16:52 18:25 Temp 97.8 97.8 99.5 97.8 97.8 99.5 Pulse 70 73 76 Resp 18 23 23 B/P (MAP) 123/62 131/66 131/57 Pulse Ox 96 93 93 93 O2 Delivery Room Air Room Air Room Air Room Air O2 Flow Rate 10.0 11/18/19 11/18/19 11/18/19 11/18/19 19:25 19:40 19:40 20:43 Temp 98.2 98.2 Pulse 87 87 Resp 18 18 B/P (MAP) 114/72 (86) 114/72 Pulse Ox 95 O2 Delivery Room Air Room Air 11/18/19 11/18/19 11/18/19 11/18/19 20:44 21:14 22:24 22:54 Resp 20 18 Pulse Ox 96 O2 Delivery Room Air Room Air Room Air O2 Flow Rate 10.0 11/18/19 11/19/19 11/19/19 11/19/19 23:45 01:21 02:21 03:40 Temp 98.1 98.8 98.1 98.8 Pulse 89 82 Resp 20 20 B/P (MAP) 145/79 (101) 118/68 (85) Pulse Ox 96 96 O2 Delivery Room Air Room Air Room Air Room Air 11/19/19 11/19/19 11/19/19 11/19/19 05:39 06:09 07:00 08:17 Temp 97.4 97.4 Pulse 66 66 Resp 18 B/P (MAP) 122/76 (91) 122/76 Pulse Ox 96 O2 Delivery Room Air Room Air 11/19/19 08:17 Pulse 66 B/P (MAP) 122/76 Intake and Output 11/18/19 11/18/19 11/19/19 15:00 23:00 07:00 Intake Total 0 ml 1650 ml 600 ml Output Total 25 ml 1450 ml Balance 0 ml 1625 ml -850 ml Justicifation of Admission Dx: Justifications for Admission: Justification of Admission Dx: Yes Angina: Unstable Variant BRAD CASTILLO MD Nov 19, 2019 10:50
[2019-11-19] MEDS: DAPTOmycin (GENERIC) IVPB 500 MG in IV NORMAL SALINE 50ML 50 ML IV SCH (10:53)
--- NOTE | 2019-11-19 11:08 | PDOC ---
PROGRESS NOTES Date of Service: DATE: 11/19/19 TIME: 11:08 Subjective Subjective Feeling better today. Denied any chest pain. Objective Objective Vital Signs Date Time Temp Pulse Resp B/P (MAP) Pulse Ox O2 Delivery O2 Flow Rate FiO2 11/19/19 08:17 66 122/76 11/19/19 07:00 97.4 18 96 Room Air 97.4 11/18/19 21:14 10.0 Intake and Output 11/19/19 07:00 Intake Total 2250 ml Output Total 1475 ml Balance 775 ml Intake Oral 1200 ml IV Total 1050 ml Output Urine Total 1450 ml Estimated Blood Loss 25 ml Physical Exam Abdomen: Soft, No tenderness Heart: Regular rate (SR), Normal S1, Normal S2, No murmurs Extremities: No cyanosis, No edema General: Alert, Oriented X3, Cooperative, No acute distress HEENT: Atraumatic, Mucous membr. moist/pink Lungs: Clear to auscultation, Normal air movement MUSCULOSKELETAL: Osteoarthritic changes both hands Neuro: Normal speech, Sensation intact Psych/Mental Status: Mental status NL, Mood NL Skin: No breakdown, No significant lesion COMMENT rt foot good blood flow Assessment Assessment 1. Septic arthritis right knee s/p I/D by Ortho team. Lower extremity arterial duplex scan did not show any significant PAD. Continue antibiotics per ID team. 2. CAD: recent PCI/LALITO via radial approach to LAD 11/08/2019, stable and chest pain-free. Continue DAPT. 3. HTN: controlled 4. HLP: continue statin therapy Comment Review of Relevant I have reviewed the following items dread (where applicable) has been applied. Labs Laboratory Tests Test 11/18/19 12:00 11/18/19 12:21 11/18/19 13:57 11/19/19 04:00 Prothrombin Time 13.3 SEC (11.7-14.0) Prothromb Time International Ratio 1.1 (0.8-1.1) Sodium Level 136 mmol/L (136-145) Potassium Level 4.0 mmol/L (3.5-5.1) Chloride Level 98 mmol/L (98-107) Carbon Dioxide Level 28 mmol/L (21-32) Anion Gap 10 (6-14) Blood Urea Nitrogen 17 mg/dL (8-26) Creatinine 1.2 mg/dL (0.7-1.3) 1.0 mg/dL (0.7-1.3) Estimated GFR (Cockcroft-Gault) 63.1 77.9 BUN/Creatinine Ratio 14 (6-20) Glucose Level 105 mg/dL (70-99) Uric Acid 7.4 mg/dL (3.5-7.2) Calcium Level 9.3 mg/dL (8.5-10.1) Total Bilirubin 1.3 mg/dL (0.2-1.0) Aspartate Amino Transf (AST/SGOT) 21 U/L (15-37) Alanine Aminotransferase (ALT/SGPT) 43 U/L (16-63) Alkaline Phosphatase 46 U/L (46-116) C-Reactive Protein, Quantitative 102.9 mg/L (0-3.3) Total Protein 8.1 g/dL (6.4-8.2) Albumin 3.8 g/dL (3.4-5.0) Albumin/Globulin Ratio 0.9 (1.0-1.7) Body Fluid Source Synovial Body Fluid Color Yellow Body Fluid Clarity Turbid Body Fluid Nucleated Cells 89760 /cmm (Not Body Fluid Mononuclear WBCs (%) 11 % Body Fluid Polymorphonuclear Cells 89 % Body Fluid Total RBCs Counted 0 /cmm (Not Established) SARS-CoV-2 Antigen (Rapid) Negative (NEGATIVE) White Blood Count 11.6 x10^3/uL (4.0-11.0) Red Blood Count 4.66 x10^6/uL (4.30-5.70) Hemoglobin 13.8 g/dL (13.0-17.5) Hematocrit 40.5 % (39.0-53.0) Mean Corpuscular Volume 87 fL (79-100) Mean Corpuscular Hemoglobin 30 pg (25-35) Mean Corpuscular Hemoglobin Concent 34 g/dL (31-37) Red Cell Distribution Width 13.3 % (11.5-14.5) Platelet Count 279 x10^3/uL (140-400) Neutrophils (%) (Auto) 80 % (31-73) Lymphocytes (%) (Auto) 11 % (24-48) Monocytes (%) (Auto) 9 % (0-9) Eosinophils (%) (Auto) 0 % (0-3) Basophils (%) (Auto) 0 % (0-3) Neutrophils # (Auto) 9.2 x10^3/uL (1.8-7.7) Lymphocytes # (Auto) 1.3 x10^3/uL (1.0-4.8) Monocytes # (Auto) 1.0 x10^3/uL (0.0-1.1) Eosinophils # (Auto) 0.0 x10^3/uL (0.0-0.7) Basophils # (Auto) 0.0 x10^3/uL (0.0-0.2) Creatine Kinase 64 U/L (39-308) Microbiology 11/18/19 Gram Stain - Final, Resulted 11/18/19 Aerobic and Anaerobic Culture - Preliminary, Resulted Medications Current Medications Acetaminophen (Tylenol) 650 mg PRN Q8HRS PRN PO MILD PAIN / TEMP > 100.3'F Last administered on 11/19/19at 05:37; Start 11/18/19 at 11:45 Acetaminophen/ Hydrocodone Bitart (Lortab 10/325) 1 tab PRN Q6HRS PRN PO MODERATE-SEVERE PAIN Last administered on 11/19/19at 08:17; Start 11/18/19 at 18:15 Ascorbic Acid (Vitamin C) 1,000 mg DAILY PO Last administered on 11/19/19at 08:17; Start 11/18/19 at 12:00 Aspirin (Ecotrin) 81 mg DAILYWBKFT PO Last administered on 11/19/19at 08:16; Start 11/18/19 at 12:00 Atorvastatin Calcium (Lipitor) 10 mg HS PO Last administered on 11/18/19at 20:43; Start 11/18/19 at 21:00 Bupivacaine HCl/ Epinephrine Bitart (Sensorcain-Epi 0.5%-1:922426 Mpf) 30 ml STK-MED ONCE .ROUTE ; Start 11/18/19 at 14:18; Stop 11/18/19 at 14:18; Status DC Cefepime HCl (Maxipime) 1 gm Q8HRS IVP Last administered on 11/19/19at 05:37; Start 11/18/19 at 16:15 Clindamycin HCl (Cleocin) 450 mg TID PO Last administered on 11/19/19at 08:17; Start 11/18/19 at 14:00; Stop 11/19/19 at 10:55; Status DC Daptomycin 500 mg/ Sodium Chloride 50 ml @ 100 mls/hr Q24H IV Last administered on 11/19/19at 10:53; Start 11/19/19 at 09:00 Dexamethasone Sodium Phosphate (Decadron) 4 mg STK-MED ONCE .ROUTE ; Start 11/18/19 at 13:58; Stop 11/18/19 at 13:58; Status DC Fentanyl Citrate (Fentanyl 2ml Vial) 25 mcg PRN Q5MIN PRN IVP MILD PAIN 1-3; Start 11/18/19 at 13:00; Stop 11/18/19 at 20:00; Status DC Fentanyl Citrate (Fentanyl 2ml Vial) 50 mcg PRN Q5MIN PRN IVP MODERATE TO SEVERE PAIN; Start 11/18/19 at 13:00; Stop 11/18/19 at 20:00; Status DC Fentanyl Citrate (Fentanyl 2ml Vial) 100 mcg STK-MED ONCE .ROUTE ; Start 11/18/19 at 15:09; Stop 11/18/19 at 15:10; Status DC Hydrochlorothiazide (Microzide) 12.5 mg DAILY PO Last administered on 11/19/19at 08:16; Start 11/18/19 at 12:00 Hydromorphone HCl (Dilaudid) 0.5 mg PRN Q10MIN PRN IVP SEV PAIN, Second choice; Start 11/18/19 at 13:00; Stop 11/18/19 at 20:00; Status DC Lidocaine HCl (Lidocaine Pf 2% Vial) 5 ml STK-MED ONCE .ROUTE ; Start 11/18/19 at 13:58; Stop 11/18/19 at 13:58; Status DC Lidocaine HCl (Xylocaine-Mpf 1% 2ml Vial) 2 ml 1X PRN PRN ID IV START; Start 11/18/19 at 13:00; Stop 11/18/19 at 20:00; Status DC Losartan Potassium (Cozaar) 50 mg DAILY PO Last administered on 11/19/19at 08:17; Start 11/18/19 at 12:00 Metoprolol Tartrate (Lopressor) 25 mg BID PO Last administered on 11/19/19at 08:17; Start 11/18/19 at 21:00 Morphine Sulfate (Morphine Sulfate) 1 mg PRN Q10MIN PRN IVP SEVERE PAIN 7-10; Start 11/18/19 at 13:00; Stop 11/18/19 at 20:00; Status DC Morphine Sulfate (Morphine Sulfate) 2 mg PRN Q2HR PRN IV PAIN Last administered on 11/19/19at 05:39; Start 11/18/19 at 18:15 Ondansetron HCl (Zofran) 4 mg PRN Q6HRS PRN IVP NAUSEA/VOMITING; Start 11/18/19 at 13:00; Stop 11/19/19 at 12:59 Ondansetron HCl (Zofran) 4 mg STK-MED ONCE .ROUTE ; Start 11/18/19 at 13:58; Stop 11/18/19 at 13:58; Status DC Prochlorperazine Edisylate (Compazine) 5 mg PACU PRN PRN IVP NAUSEA, MRX1; Start 11/18/19 at 13:00; Stop 11/18/19 at 20:00; Status DC Propofol (Diprivan) 200 mg STK-MED ONCE IV ; Start 11/18/19 at 13:58; Stop 11/18/19 at 13:58; Status DC Ringer's Solution 1,000 ml @ 30 mls/hr Q24H IV Last administered on 11/18/19at 12:51; Start 11/18/19 at 12:51; Stop 11/19/19 at 00:50; Status DC Ropinirole HCl (Requip) 0.25 mg HS PO Last administered on 11/18/19at 20:43; Start 11/18/19 at 21:00 Sevoflurane (Ultane) 30 ml STK-MED ONCE IH ; Start 11/18/19 at 15:56; Stop 11/18/19 at 15:56; Status DC Sevoflurane (Ultane) 60 ml STK-MED ONCE IH ; Start 11/18/19 at 15:52; Stop 11/18/19 at 15:52; Status DC Ticagrelor (Brilinta) 90 mg BID PO Last administered on 11/19/19at 08:17; Start 11/18/19 at 21:00 Vancomycin HCl (Vanco Per Pharmacy) 1 each PRN DAILY PRN MC SEE COMMENTS Last administered on 11/18/19at 17:56; Start 11/18/19 at 16:30; Stop 11/19/19 at 07:26; Status DC Vancomycin HCl (Vancomycin Trough Level) 1 each 1X ONCE MC ; Start 11/20/19 at 05:00; Stop 11/20/19 at 05:01; Status Cancel Vancomycin HCl 1.25 gm/Sodium Chloride 250 ml @ 167 mls/hr Q12H IV Last administered on 11/19/19at 05:38; Start 11/19/19 at 05:30; Stop 11/19/19 at 07:26; Status DC Vancomycin HCl 2 gm/Sodium Chloride 500 ml @ 250 mls/hr 1X ONCE IV Last administered on 11/18/19at 17:24; Start 11/18/19 at 16:30; Stop 11/18/19 at 18:29; Status DC Vitamin D (Vitamin D3) 2,000 unit DAILY PO Last administered on 11/19/19at 08:16; Start 11/18/19 at 12:00 Vitals/I & O Vital Sign - Last 24 Hours 11/18/19 11/18/19 11/18/19 11/18/19 11:26 13:39 16:06 16:06 Temp 98.0 98.0 97.8 98.0 98.0 97.8 Pulse 66 68 68 Resp 20 15 16 B/P (MAP) 112/66 (81) 134/69 112/46 Pulse Ox 98 97 100 O2 Delivery Room Air Simple Mask Mask O2 Flow Rate 10 10 11/18/19 11/18/19 11/18/19 11/18/19 16:22 16:37 16:52 18:25 Temp 97.8 97.8 99.5 97.8 97.8 99.5 Pulse 70 73 76 Resp 23 B/P (MAP) 123/62 131/66 131/57 Pulse Ox 96 93 93 93 O2 Delivery Room Air Room Air Room Air Room Air O2 Flow Rate 10.0 11/18/19 11/18/19 11/18/19 11/18/19 19:25 19:40 19:40 20:43 Temp 98.2 98.2 Pulse 87 87 Resp 18 18 B/P (MAP) 114/72 (86) 114/72 Pulse Ox 95 O2 Delivery Room Air Room Air 11/18/19 11/18/19 11/18/19 11/18/19 20:44 21:14 22:24 22:54 Resp 20 20 18 Pulse Ox 96 O2 Delivery Room Air Room Air Room Air O2 Flow Rate 10.0 11/18/19 11/19/19 11/19/19 11/19/19 23:45 01:21 02:21 03:40 Temp 98.1 98.8 98.1 98.8 Pulse 89 82 Resp 20 20 18 20 B/P (MAP) 145/79 (101) 118/68 (85) Pulse Ox 96 96 O2 Delivery Room Air Room Air Room Air Room Air 11/19/19 11/19/19 11/19/19 11/19/19 05:39 06:09 07:00 08:17 Temp 97.4 97.4 Pulse 66 66 Resp 18 20 18 B/P (MAP) 122/76 (91) 122/76 Pulse Ox 96 O2 Delivery Room Air Room Air 11/19/19 08:17 Pulse 66 B/P (MAP) 122/76 Intake and Output 11/18/19 11/18/19 11/19/19 15:00 23:00 07:00 Intake Total 0 ml 1650 ml 600 ml Output Total 25 ml 1450 ml Balance 0 ml 1625 ml -850 ml SINDI PEDRAZA MD Nov 19, 2019 11:08
[2019-11-19 11:23] VITALS: BP 123/79
[2019-11-19 15:00] VITALS: BP 115/64
--- NOTE | 2019-11-19 18:47 | PDOC ---
PROGRESS NOTES Date of Service DATE: 11/19/19 TIME: 18:16 Subjective Subjective Problems overnight: Colton reports the pain in his right foot is gone and his knee overall feels much better it is still sore but certainly not as bad as before surgery Objective Vital Signs Vital Signs Date Time Temp Pulse Resp B/P (MAP) Pulse Ox O2 Delivery O2 Flow Rate FiO2 11/19/19 15:00 98.1 62 18 115/64 (81) 96 Room Air 98.1 11/18/19 21:14 10.0 Physical Exam No drainage from his arthroscopic portal sites is noted effusion resolving no distal swelling distal neurovascular status is intact and he is now able to move the knee through about a 45 degree arc of range of motion Labs Laboratory Tests Test 11/18/19 12:00 11/18/19 12:21 11/18/19 13:57 11/19/19 04:00 Prothrombin Time 13.3 SEC (11.7-14.0) Prothromb Time International Ratio 1.1 (0.8-1.1) Sodium Level 136 mmol/L (136-145) Potassium Level 4.0 mmol/L (3.5-5.1) Chloride Level 98 mmol/L (98-107) Carbon Dioxide Level 28 mmol/L (21-32) Anion Gap 10 (6-14) Blood Urea Nitrogen 17 mg/dL (8-26) Creatinine 1.2 mg/dL (0.7-1.3) 1.0 mg/dL (0.7-1.3) Estimated GFR (Cockcroft-Gault) 63.1 77.9 BUN/Creatinine Ratio 14 (6-20) Glucose Level 105 mg/dL (70-99) Uric Acid 7.4 mg/dL (3.5-7.2) Calcium Level 9.3 mg/dL (8.5-10.1) Total Bilirubin 1.3 mg/dL (0.2-1.0) Aspartate Amino Transf (AST/SGOT) 21 U/L (15-37) Alanine Aminotransferase (ALT/SGPT) 43 U/L (16-63) Alkaline Phosphatase 46 U/L (46-116) C-Reactive Protein, Quantitative 102.9 mg/L (0-3.3) Total Protein 8.1 g/dL (6.4-8.2) Albumin 3.8 g/dL (3.4-5.0) Albumin/Globulin Ratio 0.9 (1.0-1.7) Body Fluid Source Synovial Body Fluid Color Yellow Body Fluid Clarity Turbid Body Fluid Nucleated Cells 74241 /cmm (Not Body Fluid Mononuclear WBCs (%) 11 % Body Fluid Polymorphonuclear Cells 89 % Body Fluid Total RBCs Counted 0 /cmm (Not Established) Coronavirus (PCR) Not detected (Not Detected) SARS-CoV-2 Antigen (Rapid) Negative (NEGATIVE) White Blood Count 11.6 x10^3/uL (4.0-11.0) Red Blood Count 4.66 x10^6/uL (4.30-5.70) Hemoglobin 13.8 g/dL (13.0-17.5) Hematocrit 40.5 % (39.0-53.0) Mean Corpuscular Volume 87 fL (79-100) Mean Corpuscular Hemoglobin 30 pg (25-35) Mean Corpuscular Hemoglobin Concent 34 g/dL (31-37) Red Cell Distribution Width 13.3 % (11.5-14.5) Platelet Count 279 x10^3/uL (140-400) Neutrophils (%) (Auto) 80 % (31-73) Lymphocytes (%) (Auto) 11 % (24-48) Monocytes (%) (Auto) 9 % (0-9) Eosinophils (%) (Auto) 0 % (0-3) Basophils (%) (Auto) 0 % (0-3) Neutrophils # (Auto) 9.2 x10^3/uL (1.8-7.7) Lymphocytes # (Auto) 1.3 x10^3/uL (1.0-4.8) Monocytes # (Auto) 1.0 x10^3/uL (0.0-1.1) Eosinophils # (Auto) 0.0 x10^3/uL (0.0-0.7) Basophils # (Auto) 0.0 x10^3/uL (0.0-0.2) Creatine Kinase 64 U/L (39-308) Laboratory Tests Test 11/19/19 04:00 White Blood Count 11.6 x10^3/uL (4.0-11.0) Red Blood Count 4.66 x10^6/uL (4.30-5.70) Hemoglobin 13.8 g/dL (13.0-17.5) Hematocrit 40.5 % (39.0-53.0) Mean Corpuscular Volume 87 fL (79-100) Mean Corpuscular Hemoglobin 30 pg (25-35) Mean Corpuscular Hemoglobin Concent 34 g/dL (31-37) Red Cell Distribution Width 13.3 % (11.5-14.5) Platelet Count 279 x10^3/uL (140-400) Neutrophils (%) (Auto) 80 % (31-73) Lymphocytes (%) (Auto) 11 % (24-48) Monocytes (%) (Auto) 9 % (0-9) Eosinophils (%) (Auto) 0 % (0-3) Basophils (%) (Auto) 0 % (0-3) Neutrophils # (Auto) 9.2 x10^3/uL (1.8-7.7) Lymphocytes # (Auto) 1.3 x10^3/uL (1.0-4.8) Monocytes # (Auto) 1.0 x10^3/uL (0.0-1.1) Eosinophils # (Auto) 0.0 x10^3/uL (0.0-0.7) Basophils # (Auto) 0.0 x10^3/uL (0.0-0.2) Creatinine 1.0 mg/dL (0.7-1.3) Estimated GFR (Cockcroft-Gault) 77.9 Creatine Kinase 64 U/L (39-308) Assessment Assessment POD#1 arthroscopic irrigation debridement of right septic knee with chondroplasty medial femoral condyle and partial lateral meniscectomy Plan Plan of Care He can mobilize as tolerated weightbearing as tolerated Cultures pending, antibiotic coverage per infectious disease Justicifation of Admission Dx: Justifications for Admission: Justification of Admission Dx: N/A Angina: Unstable Variant RODNEY INTERIANO MD Nov 19, 2019 18:47
[2019-11-19 19:49] VITALS: BP 124/66
[2019-11-19] MEDS: ATORVASTATIN CALCIUM 10 MG TABLET. PO SCH (20:59)
[2019-11-19] MEDS: rOPINIRole 0.25 MG TABLET. PO SCH (20:59)
[2019-11-19] MEDS: LACTOBACILLUS RHAMNOSUS GG 1 CAPSULE. PO SCH (20:59)
[2019-11-19 23:00] VITALS: BP 119/65
[2019-11-20 03:25] VITALS: BP 108/58
[2019-11-20 04:41] LABS: CREATININE 1.1 mg/dL (0.7-1.3); GFR 69.8
[2019-11-20] MEDS: CEFEPIME HCL IV Push 1 GM VIAL. IVP SCH ×3 (06:03→20:53)
--- NOTE | 2019-11-20 06:56 | PDOC ---
Infectious Disease Note Subjective Subjective Some better. has been ambulating No F/c/s/N/v/SOA/rash A little constipation ROS ROS o/w neg Vital Sign Vital Signs Vital Signs Date Time Temp Pulse Resp B/P (MAP) Pulse Ox O2 Delivery O2 Flow Rate FiO2 11/20/19 03:25 97.4 72 18 108/58 (75) 97 Room Air 97.4 Physical Exam PHYSICAL EXAM CONSTITUTIONAL: He is lying in bed. He is cooperative. He is in no acute distress. looks well HEENT: Pupils equal and reactive. He has normal conjunctivae. Oral cavity, pharynx is clear. NECK: Supple. Good range of motion. LUNGS: Clear to auscultation bilaterally. HEART: S1, S2. ABDOMEN: Soft, nontender, no guarding or rebound. EXTREMITIES: Without clubbing, cyanosis. Right knee has a postoperative dressing in place. His right foot has trace edema. He has good sensation. He moves all extremities and has good pulses. SKIN: Warm to touch without signs of rash. NEUROLOGIC: Nonfocal. PSYCHIATRIC: Affect is appropriate. Labs Lab Laboratory Tests Test 11/20/19 04:15 Creatinine 1.1 mg/dL (0.7-1.3) Estimated GFR (Cockcroft-Gault) 69.8 Micro Microbiology 11/18/19 Gram Stain - Final, Resulted 11/18/19 Aerobic and Anaerobic Culture, Resulted Pending Objective Assessment Fever leukocytosis - s/p Solummedrol and post op Septic r knee s/p I and D 11/17 - cults neg so far GABBIE - Plan Plan of Care Added Cefepime F/u Crystals ordered 11/17 D/c Vanc and dosed Dapto F/u labs/cults and crystals ROB CRAFT MD Nov 20, 2019 06:56
[2019-11-20 07:00] VITALS: BP 117/63
[2019-11-20] MEDS: CHOLECALCIFEROL (VITAMIN D3) 1,000 UNIT TABLET PO SCH (08:09)
[2019-11-20] MEDS: TICAGRELOR 90 MG TABLET. PO SCH ×2 (08:09→20:53)
[2019-11-20] MEDS: LACTOBACILLUS RHAMNOSUS GG 1 CAPSULE. PO SCH ×2 (08:10→20:52)
[2019-11-20] MEDS: ASPIRIN ENTERIC COATED 81 MG TABLET.DR. PO SCH (08:10)
[2019-11-20] MEDS: hydroCHLOROthiazide 12.5 MG CAPSULE PO SCH (08:10)
[2019-11-20] MEDS: METOPROLOL TART IMMED RELEASE 25 MG TABLET. PO SCH ×2 (08:10→20:53)
[2019-11-20] MEDS: LOSARTAN POTASSIUM 50 MG TABLET. PO SCH (08:10)
[2019-11-20] MEDS: HYDROcodone/APAP 10/325 1 TAB TABLET PO PRN ×3 (08:11→20:53)
[2019-11-20] MEDS: ASCORBIC ACID 500 MG TABLET PO SCH (08:11)
[2019-11-20] MEDS: DAPTOmycin (GENERIC) IVPB 500 MG in IV NORMAL SALINE 50ML 50 ML IV SCH (08:49)
--- NOTE | 2019-11-20 10:14 | PDOC ---
PROGRESS NOTES Date of Service: DATE: 11/20/19 TIME: 10:11 Subjective Subjective feels better today Objective Objective Vital Signs Date Time Temp Pulse Resp B/P (MAP) Pulse Ox O2 Delivery O2 Flow Rate FiO2 11/20/19 08:10 56 117/63 11/20/19 07:00 97.5 18 97 Room Air 97.5 Intake and Output 11/20/19 07:00 Intake Total 1710 ml Output Total 1670 ml Balance 40 ml Intake Oral 1710 ml Output Urine Total 1670 ml Physical Exam Abdomen: Soft, No tenderness Heart: Regular rate (SR), Normal S1, Normal S2, No murmurs Extremities: No cyanosis, No edema General: Alert, Oriented X3, Cooperative, No acute distress HEENT: Atraumatic, Mucous membr. moist/pink Lungs: Clear to auscultation, Normal air movement MUSCULOSKELETAL: Osteoarthritic changes both hands Neuro: Normal speech, Sensation intact Psych/Mental Status: Mental status NL, Mood NL Skin: No breakdown, No significant lesion COMMENT rt foot good warm Assessment Assessment FINAL IMPRESSION: 1. Right knee pain and swelling.?septic knee 2. Right lower leg ischemia. 3. Recent coronary artery disease, angioplasty, stenting of left anterior descending. 4. Hypertension. 5. Hyperlipidemia. 6. History of gout. PLAN: IV antibiotics Daptomycin+cefepime. Date of surgery: 11/18/2019,POD#2 Preoperative diagnosis: Right knee effusion and concern for septic joint Postoperative diagnosis: Same with partial-thickness chondral defect and fraying medial femoral condyle and free edge lateral meniscus tear Operative procedure: Right knee arthroscopy with irrigation debridement of septic knee, chondroplasty medial femoral condyle and partial lateral meniscectomy Surgeon: Patricia. Arteial doppler good blood flow Rt knee joint aspiration 30,000 wbc Comment Review of Relevant I have reviewed the following items dread (where applicable) has been applied. Labs Laboratory Tests Test 11/20/19 04:15 Creatinine 1.1 mg/dL (0.7-1.3) Estimated GFR (Cockcroft-Gault) 69.8 Microbiology 11/18/19 Gram Stain - Final, Resulted 11/18/19 Aerobic and Anaerobic Culture - Preliminary, Resulted Medications Current Medications Enoxaparin Sodium (Lovenox 40mg Syringe) 40 mg Q24H SQ ; Start 11/20/19 at 12:00 Lactobacillus Rhamnosus (Culturelle) 1 cap BID PO Last administered on 11/20/19at 08:10; Start 11/19/19 at 21:00 Vancomycin HCl (Vancomycin Trough Level) 1 each 1X ONCE MC ; Start 11/20/19 at 05:00; Stop 11/20/19 at 05:01; Status Cancel Vitals/I & O Vital Sign - Last 24 Hours 11/19/19 11/19/19 11/19/19 11/19/19 11:23 15:00 19:49 20:00 Temp 98.1 98.1 98.0 98.1 98.1 98.0 Pulse 57 62 60 Resp 18 18 18 B/P (MAP) 123/79 (94) 115/64 (81) 124/66 (85) Pulse Ox 97 96 97 O2 Delivery Room Air Room Air Room Air Room Air 11/19/19 11/19/19 11/19/19 11/20/19 20:59 20:59 23:00 03:25 Temp 98.1 97.4 98.1 97.4 Pulse 60 65 72 Resp 18 18 18 B/P (MAP) 124/66 119/65 (83) 108/58 (75) Pulse Ox 95 97 O2 Delivery Room Air Room Air Room Air 11/20/19 11/20/19 11/20/19 07:00 08:10 08:10 Temp 97.5 97.5 Pulse 56 56 56 Resp 18 B/P (MAP) 117/63 (81) 117/63 117/63 Pulse Ox 97 O2 Delivery Room Air Intake and Output 11/19/19 11/19/19 11/20/19 15:00 23:00 07:00 Intake Total 610 ml 1100 ml 0 ml Output Total 950 ml 720 ml Balance -340 ml 380 ml 0 ml Justicifation of Admission Dx: Justifications for Admission: Justification of Admission Dx: N/A Angina: Unstable Variant BRAD CASTILLO MD Nov 20, 2019 10:14
[2019-11-20 11:24] VITALS: BP 116/67
--- NOTE | 2019-11-20 12:12 | PDOC ---
PROGRESS NOTES Date of Service: DATE: 11/20/19 TIME: 12:12 Subjective Subjective Feeling better. Able to walk around the unit with walker. Denied any chest pain. Objective Objective Vital Signs Date Time Temp Pulse Resp B/P (MAP) Pulse Ox O2 Delivery O2 Flow Rate FiO2 11/20/19 11:24 98.1 64 18 116/67 (83) 95 Room Air 98.1 Intake and Output 11/20/19 07:00 Intake Total 1710 ml Output Total 1670 ml Balance 40 ml Intake Oral 1710 ml Output Urine Total 1670 ml Physical Exam Abdomen: Soft, No tenderness Heart: Regular rate (SR), Normal S1, Normal S2, No murmurs Extremities: No cyanosis, No edema General: Alert, Oriented X3, Cooperative, No acute distress HEENT: Atraumatic, Mucous membr. moist/pink Lungs: Clear to auscultation, Normal air movement MUSCULOSKELETAL: Osteoarthritic changes both hands Neuro: Normal speech, Sensation intact Psych/Mental Status: Mental status NL, Mood NL Skin: No breakdown, No significant lesion COMMENT rt foot good warm Assessment Assessment 1. Septic arthritis right knee s/p I/D by Ortho team. Lower extremity arterial duplex scan did not show any significant PAD. Continue antibiotics per ID team. 2. CAD: recent PCI/LALITO via radial approach to LAD 11/08/2019, stable and chest pain-free. Continue DAPT. 3. HTN: controlled 4. HLP: continue statin therapy Comment Review of Relevant I have reviewed the following items dread (where applicable) has been applied. Labs Laboratory Tests Test 11/20/19 04:15 Creatinine 1.1 mg/dL (0.7-1.3) Estimated GFR (Cockcroft-Gault) 69.8 Microbiology 11/18/19 Gram Stain - Final, Resulted 11/18/19 Aerobic and Anaerobic Culture - Preliminary, Resulted Medications Current Medications Enoxaparin Sodium (Lovenox 40mg Syringe) 40 mg Q24H SQ ; Start 11/20/19 at 12:00 Lactobacillus Rhamnosus (Culturelle) 1 cap BID PO Last administered on 11/20/19at 08:10; Start 11/19/19 at 21:00 Vancomycin HCl (Vancomycin Trough Level) 1 each 1X ONCE MC ; Start 11/20/19 at 05:00; Stop 11/20/19 at 05:01; Status Cancel Vitals/I & O Vital Sign - Last 24 Hours 11/19/19 11/19/19 11/19/19 11/19/19 15:00 19:49 20:00 20:59 Temp 98.1 98.0 98.1 98.0 Pulse 62 60 60 Resp 18 18 B/P (MAP) 115/64 (81) 124/66 (85) 124/66 Pulse Ox 96 97 O2 Delivery Room Air Room Air Room Air 11/19/19 11/19/19 11/20/19 11/20/19 20:59 23:00 03:25 07:00 Temp 98.1 97.4 97.5 98.1 97.4 97.5 Pulse 65 72 56 Resp 18 18 18 18 B/P (MAP) 119/65 (83) 108/58 (75) 117/63 (81) Pulse Ox 95 97 97 O2 Delivery Room Air Room Air Room Air Room Air 11/20/19 11/20/19 11/20/19 11/20/19 08:00 08:10 08:10 11:24 Temp 98.1 98.1 Pulse 56 56 64 Resp 18 B/P (MAP) 117/63 117/63 116/67 (83) Pulse Ox 95 O2 Delivery Room Air Room Air Intake and Output 11/19/19 11/19/19 11/20/19 15:00 23:00 07:00 Intake Total 610 ml 1100 ml 0 ml Output Total 950 ml 720 ml Balance -340 ml 380 ml 0 ml SINDI PEDRAZA MD Nov 20, 2019 12:12
[2019-11-20] MEDS: ENOXAPARIN 40 MG/0.4 ML SYRINGE. SQ SCH (12:35)
[2019-11-20 15:09] VITALS: BP 137/62
[2019-11-20] MEDS: MORPHINE SULFATE 2 MG/ML VIAL. IV PRN (15:45)
[2019-11-20 19:29] VITALS: BP 136/59
[2019-11-20] MEDS: rOPINIRole 0.25 MG TABLET. PO SCH (20:52)
[2019-11-20] MEDS: ATORVASTATIN CALCIUM 10 MG TABLET. PO SCH (20:53)
[2019-11-20 22:39] VITALS: BP 133/75
[2019-11-21 03:14] VITALS: BP 128/63
[2019-11-21 03:58] LABS: BASO # 0.1 x10^3/uL (0.0-0.2); BASO % 1 % (0-3); EOS # 0.2 x10^3/uL (0.0-0.7); EOS % 3 % (0-3); HEMATOCRIT 39.5 % (39.0-53.0); HEMOGLOBIN 13.5 g/dL (13.0-17.5); LYMPH # 2.4 x10^3/uL (1.0-4.8); LYMPH % 30 % (24-48); MEAN CORPUSCULAR HEMOGLOBIN 30 pg (25-35); MEAN CORPUSCULAR HGB CONC 34 g/dL (31-37); MEAN CORPUSCULAR VOLUME 88 fL (79-100); MONO % 13 % (0-9); NEUT # 4.3 x10^3/uL (1.8-7.7); NEUT % 54 % (31-73); PLATELET COUNT 331 x10^3/uL (140-400); RED BLOOD COUNT 4.46 x10^6/uL (4.30-5.70); RED CELL DISTRIBUTION WIDTH 13.2 % (11.5-14.5)
[2019-11-21 04:18] LABS: ALBUMIN 3.4 g/dL (3.4-5.0); ALBUMIN/GLOBULIN RATIO 0.9 (1.0-1.7); CALCIUM 8.7 mg/dL (8.5-10.1); CREATININE 1.1 mg/dL (0.7-1.3); GFR 69.8; POTASSIUM 3.9 mmol/L (3.5-5.1); TOTAL BILIRUBIN 0.4 mg/dL (0.2-1.0); TOTAL PROTEIN 7.4 g/dL (6.4-8.2)
[2019-11-21] MEDS: CEFEPIME HCL IV Push 1 GM VIAL. IVP SCH ×3 (05:27→21:01)
[2019-11-21 07:00] VITALS: BP 119/71
--- NOTE | 2019-11-21 08:16 | PDOC ---
PROGRESS NOTES Date of Service: DATE: 11/21/19 TIME: 08:14 Subjective Subjective FEELS BETTER TODAY ,LESS PAIN AND SWELLING Objective Objective Vital Signs Date Time Temp Pulse Resp B/P (MAP) Pulse Ox O2 Delivery O2 Flow Rate FiO2 11/21/19 03:14 98.1 64 18 128/63 (84) 96 Room Air 98.1 Intake and Output 11/21/19 07:00 Intake Total 940 ml Output Total 800 ml Balance 140 ml Intake Oral 940 ml Output Urine Total 800 ml Physical Exam Abdomen: Soft, No tenderness Heart: Regular rate (SR), Normal S1, Normal S2, No murmurs Extremities: No cyanosis, No edema General: Alert, Oriented X3, Cooperative, No acute distress HEENT: Atraumatic, Mucous membr. moist/pink Lungs: Clear to auscultation, Normal air movement MUSCULOSKELETAL: Osteoarthritic changes both hands Neuro: Normal speech, Sensation intact Psych/Mental Status: Mental status NL, Mood NL Skin: No breakdown, No significant lesion COMMENT rt foot warm Assessment Assessment FINAL IMPRESSION: 1. Right knee pain and swelling.?septic knee 2. Right lower leg ischemia. 3. Recent coronary artery disease, angioplasty, stenting of left anterior descending. 4. Hypertension. 5. Hyperlipidemia. 6. History of gout. PLAN: ? PICC line home iv antibiotics IV antibiotics Daptomycin+cefepime. Date of surgery: 11/18/2019,POD#2 Preoperative diagnosis: Right knee effusion and concern for septic joint Postoperative diagnosis: Same with partial-thickness chondral defect and fraying medial femoral condyle and free edge lateral meniscus tear Operative procedure: Right knee arthroscopy with irrigation debridement of septic knee, chondroplasty medial femoral condyle and partial lateral meniscectomy Surgeon: Patricia. Arteial doppler good blood flow Rt knee joint aspiration 30,000 wbc LAbs good. c r protien elevated Comment Review of Relevant I have reviewed the following items dread (where applicable) has been applied. Labs Laboratory Tests Test 11/21/19 03:15 White Blood Count 8.0 x10^3/uL (4.0-11.0) Red Blood Count 4.46 x10^6/uL (4.30-5.70) Hemoglobin 13.5 g/dL (13.0-17.5) Hematocrit 39.5 % (39.0-53.0) Mean Corpuscular Volume 88 fL (79-100) Mean Corpuscular Hemoglobin 30 pg (25-35) Mean Corpuscular Hemoglobin Concent 34 g/dL (31-37) Red Cell Distribution Width 13.2 % (11.5-14.5) Platelet Count 331 x10^3/uL (140-400) Neutrophils (%) (Auto) 54 % (31-73) Lymphocytes (%) (Auto) 30 % (24-48) Monocytes (%) (Auto) 13 % (0-9) Eosinophils (%) (Auto) 3 % (0-3) Basophils (%) (Auto) 1 % (0-3) Neutrophils # (Auto) 4.3 x10^3/uL (1.8-7.7) Lymphocytes # (Auto) 2.4 x10^3/uL (1.0-4.8) Monocytes # (Auto) 1.0 x10^3/uL (0.0-1.1) Eosinophils # (Auto) 0.2 x10^3/uL (0.0-0.7) Basophils # (Auto) 0.1 x10^3/uL (0.0-0.2) Sodium Level 139 mmol/L (136-145) Potassium Level 3.9 mmol/L (3.5-5.1) Chloride Level 100 mmol/L (98-107) Carbon Dioxide Level 30 mmol/L (21-32) Anion Gap 9 (6-14) Blood Urea Nitrogen 15 mg/dL (8-26) Creatinine 1.1 mg/dL (0.7-1.3) Estimated GFR (Cockcroft-Gault) 69.8 BUN/Creatinine Ratio 14 (6-20) Glucose Level 93 mg/dL (70-99) Calcium Level 8.7 mg/dL (8.5-10.1) Total Bilirubin 0.4 mg/dL (0.2-1.0) Aspartate Amino Transf (AST/SGOT) 28 U/L (15-37) Alanine Aminotransferase (ALT/SGPT) 55 U/L (16-63) Alkaline Phosphatase 47 U/L (46-116) Total Protein 7.4 g/dL (6.4-8.2) Albumin 3.4 g/dL (3.4-5.0) Albumin/Globulin Ratio 0.9 (1.0-1.7) Microbiology 11/18/19 Gram Stain - Final, Resulted 11/18/19 Aerobic and Anaerobic Culture - Preliminary, Resulted Medications Current Medications Enoxaparin Sodium (Lovenox 40mg Syringe) 40 mg Q24H SQ Last administered on 11/20/19at 12:35; Start 11/20/19 at 12:00 Vitals/I & O Vital Sign - Last 24 Hours 11/20/19 11/20/19 11/20/19 11/20/19 11:24 15:09 19:29 19:35 Temp 98.1 98.1 98.2 98.1 98.1 98.2 Pulse 64 57 67 Resp 18 20 18 B/P (MAP) 116/67 (83) 137/62 (87) 136/59 (84) Pulse Ox 95 95 94 O2 Delivery Room Air Room Air Room Air Room Air 11/20/19 11/20/19 11/20/19 11/21/19 20:53 20:53 22:39 03:14 Temp 98.9 98.1 98.9 98.1 Pulse 67 62 64 Resp 16 18 18 B/P (MAP) 136/59 133/75 (94) 128/63 (84) Pulse Ox 98 96 O2 Delivery Room Air Room Air Room Air Intake and Output 11/20/19 11/20/19 11/21/19 15:00 23:00 07:00 Intake Total 480 ml 360 ml 100 ml Output Total 800 ml Balance -320 ml 360 ml 100 ml BRAD CASTILLO MD Nov 21, 2019 08:16
--- NOTE | 2019-11-21 08:23 | PDOC ---
Infectious Disease Note Subjective Subjective Some better. has been ambulating No F/c/s/N/v/SOA/rash Vital Sign Vital Signs Vital Signs Date Time Temp Pulse Resp B/P (MAP) Pulse Ox O2 Delivery O2 Flow Rate FiO2 11/21/19 03:14 98.1 64 18 128/63 (84) 96 Room Air 98.1 Physical Exam PHYSICAL EXAM CONSTITUTIONAL: He is lying in bed. He is cooperative. He is in no acute distress. looks well HEENT: Pupils equal and reactive. He has normal conjunctivae. Oral cavity, pharynx is clear. NECK: Supple. Good range of motion. LUNGS: Clear to auscultation bilaterally. HEART: S1, S2. ABDOMEN: Soft, nontender, no guarding or rebound. EXTREMITIES: Without clubbing, cyanosis. Right knee has a postoperative dressing in place. His right foot has trace edema. He has good sensation. He moves all extremities and has good pulses. SKIN: Warm to touch without signs of rash. NEUROLOGIC: Nonfocal. PSYCHIATRIC: Affect is appropriate. Labs Lab Laboratory Tests Test 11/21/19 03:15 White Blood Count 8.0 x10^3/uL (4.0-11.0) Red Blood Count 4.46 x10^6/uL (4.30-5.70) Hemoglobin 13.5 g/dL (13.0-17.5) Hematocrit 39.5 % (39.0-53.0) Mean Corpuscular Volume 88 fL (79-100) Mean Corpuscular Hemoglobin 30 pg (25-35) Mean Corpuscular Hemoglobin Concent 34 g/dL (31-37) Red Cell Distribution Width 13.2 % (11.5-14.5) Platelet Count 331 x10^3/uL (140-400) Neutrophils (%) (Auto) 54 % (31-73) Lymphocytes (%) (Auto) 30 % (24-48) Monocytes (%) (Auto) 13 % (0-9) Eosinophils (%) (Auto) 3 % (0-3) Basophils (%) (Auto) 1 % (0-3) Neutrophils # (Auto) 4.3 x10^3/uL (1.8-7.7) Lymphocytes # (Auto) 2.4 x10^3/uL (1.0-4.8) Monocytes # (Auto) 1.0 x10^3/uL (0.0-1.1) Eosinophils # (Auto) 0.2 x10^3/uL (0.0-0.7) Basophils # (Auto) 0.1 x10^3/uL (0.0-0.2) Sodium Level 139 mmol/L (136-145) Potassium Level 3.9 mmol/L (3.5-5.1) Chloride Level 100 mmol/L (98-107) Carbon Dioxide Level 30 mmol/L (21-32) Anion Gap 9 (6-14) Blood Urea Nitrogen 15 mg/dL (8-26) Creatinine 1.1 mg/dL (0.7-1.3) Estimated GFR (Cockcroft-Gault) 69.8 BUN/Creatinine Ratio 14 (6-20) Glucose Level 93 mg/dL (70-99) Calcium Level 8.7 mg/dL (8.5-10.1) Total Bilirubin 0.4 mg/dL (0.2-1.0) Aspartate Amino Transf (AST/SGOT) 28 U/L (15-37) Alanine Aminotransferase (ALT/SGPT) 55 U/L (16-63) Alkaline Phosphatase 47 U/L (46-116) Total Protein 7.4 g/dL (6.4-8.2) Albumin 3.4 g/dL (3.4-5.0) Albumin/Globulin Ratio 0.9 (1.0-1.7) Micro Microbiology culture neg Objective Assessment Fever leukocytosis - s/p Solummedrol and post op ? Septic r knee s/p I and D 11/17 - cults neg so far GABBIE - Plan Plan of Care Cefepime F/u Crystals ordered 11/17 D/c Vanc and dosed Dapto F/u labs/cults and crystals pending d/w Dr Aakash MIKE,DALE Cmapos MD Nov 21, 2019 08:23
[2019-11-21] MEDS: ASPIRIN ENTERIC COATED 81 MG TABLET.DR. PO SCH (08:51)
[2019-11-21] MEDS: TICAGRELOR 90 MG TABLET. PO SCH ×2 (08:51→21:02)
[2019-11-21] MEDS: METOPROLOL TART IMMED RELEASE 25 MG TABLET. PO SCH ×2 (08:51→21:01)
[2019-11-21] MEDS: CHOLECALCIFEROL (VITAMIN D3) 1,000 UNIT TABLET PO SCH (08:51)
[2019-11-21] MEDS: LACTOBACILLUS RHAMNOSUS GG 1 CAPSULE. PO SCH ×2 (08:52→21:00)
[2019-11-21] MEDS: hydroCHLOROthiazide 12.5 MG CAPSULE PO SCH (08:52)
[2019-11-21] MEDS: LOSARTAN POTASSIUM 50 MG TABLET. PO SCH (08:52)
[2019-11-21] MEDS: ASCORBIC ACID 500 MG TABLET PO SCH (08:52)
[2019-11-21] MEDS: MORPHINE SULFATE 2 MG/ML VIAL. IV PRN ×2 (08:54→21:01)
[2019-11-21] MEDS: DAPTOmycin (GENERIC) IVPB 500 MG in IV NORMAL SALINE 50ML 50 ML IV SCH (09:11)
[2019-11-21 11:00] VITALS: BP 138/73
--- NOTE | 2019-11-21 11:21 | PDOC ---
ORTHO PROGRESS NOTES DATE: 11/21/19 TIME: 11:14 Subjective Patient states he is feeling better at this time and is moving around a little bit more today Post-op Day: 3 Procedure Right knee arthroscopy with I&D. Vitals Vital Signs Date Time Temp Pulse Resp B/P (MAP) Pulse Ox O2 Delivery O2 Flow Rate FiO2 11/21/19 08:54 Room Air 11/21/19 08:52 71 119/71 11/21/19 07:00 98.6 18 98 98.6 Labs Laboratory Tests Test 11/20/19 04:15 11/21/19 03:15 Creatinine 1.1 mg/dL (0.7-1.3) 1.1 mg/dL (0.7-1.3) Estimated GFR (Cockcroft-Gault) 69.8 69.8 White Blood Count 8.0 x10^3/uL (4.0-11.0) Red Blood Count 4.46 x10^6/uL (4.30-5.70) Hemoglobin 13.5 g/dL (13.0-17.5) Hematocrit 39.5 % (39.0-53.0) Mean Corpuscular Volume 88 fL (79-100) Mean Corpuscular Hemoglobin 30 pg (25-35) Mean Corpuscular Hemoglobin Concent 34 g/dL (31-37) Red Cell Distribution Width 13.2 % (11.5-14.5) Platelet Count 331 x10^3/uL (140-400) Neutrophils (%) (Auto) 54 % (31-73) Lymphocytes (%) (Auto) 30 % (24-48) Monocytes (%) (Auto) 13 % (0-9) Eosinophils (%) (Auto) 3 % (0-3) Basophils (%) (Auto) 1 % (0-3) Neutrophils # (Auto) 4.3 x10^3/uL (1.8-7.7) Lymphocytes # (Auto) 2.4 x10^3/uL (1.0-4.8) Monocytes # (Auto) 1.0 x10^3/uL (0.0-1.1) Eosinophils # (Auto) 0.2 x10^3/uL (0.0-0.7) Basophils # (Auto) 0.1 x10^3/uL (0.0-0.2) Sodium Level 139 mmol/L (136-145) Potassium Level 3.9 mmol/L (3.5-5.1) Chloride Level 100 mmol/L (98-107) Carbon Dioxide Level 30 mmol/L (21-32) Anion Gap 9 (6-14) Blood Urea Nitrogen 15 mg/dL (8-26) BUN/Creatinine Ratio 14 (6-20) Glucose Level 93 mg/dL (70-99) Calcium Level 8.7 mg/dL (8.5-10.1) Total Bilirubin 0.4 mg/dL (0.2-1.0) Aspartate Amino Transf (AST/SGOT) 28 U/L (15-37) Alanine Aminotransferase (ALT/SGPT) 55 U/L (16-63) Alkaline Phosphatase 47 U/L (46-116) Total Protein 7.4 g/dL (6.4-8.2) Albumin 3.4 g/dL (3.4-5.0) Albumin/Globulin Ratio 0.9 (1.0-1.7) Laboratory Tests Test 11/21/19 03:15 White Blood Count 8.0 x10^3/uL (4.0-11.0) Red Blood Count 4.46 x10^6/uL (4.30-5.70) Hemoglobin 13.5 g/dL (13.0-17.5) Hematocrit 39.5 % (39.0-53.0) Mean Corpuscular Volume 88 fL (79-100) Mean Corpuscular Hemoglobin 30 pg (25-35) Mean Corpuscular Hemoglobin Concent 34 g/dL (31-37) Red Cell Distribution Width 13.2 % (11.5-14.5) Platelet Count 331 x10^3/uL (140-400) Neutrophils (%) (Auto) 54 % (31-73) Lymphocytes (%) (Auto) 30 % (24-48) Monocytes (%) (Auto) 13 % (0-9) Eosinophils (%) (Auto) 3 % (0-3) Basophils (%) (Auto) 1 % (0-3) Neutrophils # (Auto) 4.3 x10^3/uL (1.8-7.7) Lymphocytes # (Auto) 2.4 x10^3/uL (1.0-4.8) Monocytes # (Auto) 1.0 x10^3/uL (0.0-1.1) Eosinophils # (Auto) 0.2 x10^3/uL (0.0-0.7) Basophils # (Auto) 0.1 x10^3/uL (0.0-0.2) Sodium Level 139 mmol/L (136-145) Potassium Level 3.9 mmol/L (3.5-5.1) Chloride Level 100 mmol/L (98-107) Carbon Dioxide Level 30 mmol/L (21-32) Anion Gap 9 (6-14) Blood Urea Nitrogen 15 mg/dL (8-26) Creatinine 1.1 mg/dL (0.7-1.3) Estimated GFR (Cockcroft-Gault) 69.8 BUN/Creatinine Ratio 14 (6-20) Glucose Level 93 mg/dL (70-99) Calcium Level 8.7 mg/dL (8.5-10.1) Total Bilirubin 0.4 mg/dL (0.2-1.0) Aspartate Amino Transf (AST/SGOT) 28 U/L (15-37) Alanine Aminotransferase (ALT/SGPT) 55 U/L (16-63) Alkaline Phosphatase 47 U/L (46-116) Total Protein 7.4 g/dL (6.4-8.2) Albumin 3.4 g/dL (3.4-5.0) Albumin/Globulin Ratio 0.9 (1.0-1.7) Notes Awake and alert. Assessment and Plan Postop day #3 status post right knee arthroscopy with I&D and chondroplasty and partial lateral meniscectomy. Motor and sensation intact distally at the right lower extremity. Swelling is decreasing. No dressing on the knee at this time. He has been up with physical therapy and walking well. Awaiting culture results. CATARINA PEPE APRN Nov 21, 2019 11:21
[2019-11-21] MEDS: HYDROcodone/APAP 10/325 1 TAB TABLET PO PRN (12:29)
[2019-11-21] MEDS: ENOXAPARIN 40 MG/0.4 ML SYRINGE. SQ SCH (12:30)
--- NOTE | 2019-11-21 12:46 | NUR ---
SS following for discharge planning. SS reviewed pt chart and discussed with pt RN. Pt is from home with spouse and is currently on room air. Pt on IV Daptomycin and IV Cefepime. PT/OT recommended home. SS will continue to follow for discharge planning.
[2019-11-21 15:00] VITALS: BP 139/71
--- NOTE | 2019-11-21 16:03 | PDOC ---
LELIA VILLAGOMEZ PAINT LABORATORY TECHNICIAN 11/21/19 1603: CARDIO Progress Notes Date and Time Date of Service 11/21/19 Time of Evaluation 1140 Subjective Subjective: No Chest Pain, No shortness of breath, No Palpitations, Other (right knee improved ) Vitals Vitals Vital Signs Date Time Temp Pulse Resp B/P (MAP) Pulse Ox O2 Delivery O2 Flow Rate FiO2 11/21/19 15:00 99.4 77 18 139/71 (93) 95 Room Air 99.4 Weight Weight [ ] Input and Output Intake and Output Intake and Output 11/21/19 07:00 Intake Total 940 ml Output Total 800 ml Balance 140 ml Intake Oral 940 ml Output Urine Total 800 ml Laboratory Labs Laboratory Tests Test 11/21/19 03:15 White Blood Count 8.0 x10^3/uL (4.0-11.0) Red Blood Count 4.46 x10^6/uL (4.30-5.70) Hemoglobin 13.5 g/dL (13.0-17.5) Hematocrit 39.5 % (39.0-53.0) Mean Corpuscular Volume 88 fL (79-100) Mean Corpuscular Hemoglobin 30 pg (25-35) Mean Corpuscular Hemoglobin Concent 34 g/dL (31-37) Red Cell Distribution Width 13.2 % (11.5-14.5) Platelet Count 331 x10^3/uL (140-400) Neutrophils (%) (Auto) 54 % (31-73) Lymphocytes (%) (Auto) 30 % (24-48) Monocytes (%) (Auto) 13 % (0-9) Eosinophils (%) (Auto) 3 % (0-3) Basophils (%) (Auto) 1 % (0-3) Neutrophils # (Auto) 4.3 x10^3/uL (1.8-7.7) Lymphocytes # (Auto) 2.4 x10^3/uL (1.0-4.8) Monocytes # (Auto) 1.0 x10^3/uL (0.0-1.1) Eosinophils # (Auto) 0.2 x10^3/uL (0.0-0.7) Basophils # (Auto) 0.1 x10^3/uL (0.0-0.2) Sodium Level 139 mmol/L (136-145) Potassium Level 3.9 mmol/L (3.5-5.1) Chloride Level 100 mmol/L (98-107) Carbon Dioxide Level 30 mmol/L (21-32) Anion Gap 9 (6-14) Blood Urea Nitrogen 15 mg/dL (8-26) Creatinine 1.1 mg/dL (0.7-1.3) Estimated GFR (Cockcroft-Gault) 69.8 BUN/Creatinine Ratio 14 (6-20) Glucose Level 93 mg/dL (70-99) Calcium Level 8.7 mg/dL (8.5-10.1) Total Bilirubin 0.4 mg/dL (0.2-1.0) Aspartate Amino Transf (AST/SGOT) 28 U/L (15-37) Alanine Aminotransferase (ALT/SGPT) 55 U/L (16-63) Alkaline Phosphatase 47 U/L (46-116) Total Protein 7.4 g/dL (6.4-8.2) Albumin 3.4 g/dL (3.4-5.0) Albumin/Globulin Ratio 0.9 (1.0-1.7) Microbiology Micro Microbiology 11/18/19 Gram Stain - Final, Resulted 11/18/19 Aerobic and Anaerobic Culture - Preliminary, Resulted Physical Exam HEENT: Neck Supple W Full Motion Chest: Symmetric LUNGS: Clear to Auscultation Heart: S1S2, RRR Abdomen: Soft N/T Extremities: No Edema Neurology: alert, oriented, follow commands Assessment Assessment 1. Septic arthritis right knee s/p arthroscopy with I&D by Ortho team. Awaiting culture. Lower extremity arterial duplex scan did not show any significant PAD. Continue antibiotics per ID team. 2. CAD: recent PCI/LALITO via radial approach to LAD 11/08/2019, stable and chest pain-free. Continue secondary prevention including DAPT. 3. HTN: controlled 4. HLP: continue statin therapy Justicifation of Admission Dx: Justifications for Admission: Justification of Admission Dx: N/A Angina: Unstable Variant SINDI PEDRAZA MD 11/21/192042: CARDIO Progress Notes Assessment Assessment Patient seen and examined. Agree with ART TEACHER's assessment and plan. CAD clinically stable, continue DAPT due to recent PCI/LALITO Continue abx per ID for septic arthritis LELIA VILLAGOMEZ APRN Nov 21, 2019 16:03 SINDI PEDRAZA MD Nov 21, 2019 20:43
[2019-11-21 19:00] VITALS: BP 145/83
[2019-11-21] MEDS: rOPINIRole 0.25 MG TABLET. PO SCH (21:00)
[2019-11-21] MEDS: ATORVASTATIN CALCIUM 10 MG TABLET. PO SCH (21:00)
[2019-11-21 22:59] VITALS: BP 125/76
[2019-11-22] MEDS: HYDROcodone/APAP 10/325 1 TAB TABLET PO PRN ×3 (02:14→20:30)
[2019-11-22 02:23] VITALS: BP 114/82
[2019-11-22] MEDS: CEFEPIME HCL IV Push 1 GM VIAL. IVP SCH (06:04)
[2019-11-22 07:00] VITALS: BP 133/76
--- NOTE | 2019-11-22 08:14 | PDOC ---
Infectious Disease Note Subjective Subjective Some better. has been ambulating No F/c/s/N/v/SOA/rash Vital Sign Vital Signs Vital Signs Date Time Temp Pulse Resp B/P (MAP) Pulse Ox O2 Delivery O2 Flow Rate FiO2 11/22/19 07:15 Room Air 11/22/19 03:14 94 11/22/19 02:23 98.6 63 16 114/82 (93) 98.6 11/21/19 21:31 10.0 Physical Exam PHYSICAL EXAM CONSTITUTIONAL: He is lying in bed. He is cooperative. He is in no acute distress. looks well HEENT: Pupils equal and reactive. He has normal conjunctivae. Oral cavity, pharynx is clear. NECK: Supple. Good range of motion. LUNGS: Clear to auscultation bilaterally. HEART: S1, S2. ABDOMEN: Soft, nontender, no guarding or rebound. EXTREMITIES: Without clubbing, cyanosis. Right knee has a postoperative dressing in place. His right foot has trace edema. He has good sensation. He moves all extremities and has good pulses. SKIN: Warm to touch without signs of rash. NEUROLOGIC: Nonfocal. PSYCHIATRIC: Affect is appropriate. Labs Micro Microbiology culture neg Objective Assessment Fever leukocytosis - s/p Solummedrol and post op Septic r knee s/p I and D 11/17 - cults neg so far GABBIE - Plan Plan of Care Cefepime F/u Crystals ordered 11/17 F/u labs/cults and crystals pending d/w Dr Aakash MIKE,DALE Campos MD Nov 22, 2019 08:14
--- NOTE | 2019-11-22 08:37 | PDOC ---
PROGRESS NOTES Date of Service: DATE: 11/22/19 TIME: 08:35 Subjective Subjective want to go home Objective Objective Vital Signs Date Time Temp Pulse Resp B/P (MAP) Pulse Ox O2 Delivery O2 Flow Rate FiO2 11/22/19 07:15 Room Air 11/22/19 07:00 98.3 77 18 133/76 (95) 94 98.3 11/21/19 21:31 10.0 Intake and Output 11/22/19 07:00 Intake Total 680 ml Output Total 1375 ml Balance -695 ml Intake Oral 680 ml Output Urine Total 1375 ml # Bowel Movements 1 Physical Exam Abdomen: Soft, No tenderness Heart: Regular rate (SR), Normal S1, Normal S2, No murmurs Extremities: No cyanosis, No edema General: Alert, Oriented X3, Cooperative, No acute distress HEENT: Atraumatic, Mucous membr. moist/pink Lungs: Clear to auscultation, Normal air movement MUSCULOSKELETAL: Osteoarthritic changes both hands Neuro: Normal speech, Sensation intact Psych/Mental Status: Mental status NL, Mood NL Skin: No breakdown, No significant lesion COMMENT rt foot warm Assessment Assessment FINAL IMPRESSION: 1. Right knee pain and swelling.?septic knee 2. Right lower leg ischemia. 3. Recent coronary artery disease, angioplasty, stenting of left anterior descending. 4. Hypertension. 5. Hyperlipidemia. 6. History of gout. PLAN: ? PICC line,posible d/c tomorrow home iv antibiotics?INVANZ for 3 weeks spoke with ID IV antibiotics Daptomycin+cefepime for now Date of surgery: 11/18/2019,POD#2 Preoperative diagnosis: Right knee effusion and concern for septic joint Postoperative diagnosis: Same with partial-thickness chondral defect and fraying medial femoral condyle and free edge lateral meniscus tear Operative procedure: Right knee arthroscopy with irrigation debridement of septic knee, chondroplasty medial femoral condyle and partial lateral meniscectomy Surgeon: Patricia. Arteial doppler good blood flow Rt knee joint aspiration 30,000 wbc LAbs good. c r protien elevated c/s neg Comment Review of Relevant I have reviewed the following items dread (where applicable) has been applied. Labs Microbiology 11/18/19 Gram Stain - Final, Resulted 11/18/19 Aerobic and Anaerobic Culture - Preliminary, Resulted Medications Current Medications Ceftriaxone Sodium (Rocephin) 2 gm Q24H IVP ; Start 11/22/19 at 09:00 Vitals/I & O Vital Sign - Last 24 Hours 11/21/19 11/21/19 11/21/19 11/21/19 08:51 08:52 08:54 09:24 Pulse 71 71 B/P (MAP) 119/71 119/71 O2 Delivery Room Air Room Air 11/21/19 11/21/19 11/21/19 11/21/19 11:00 12:29 13:29 15:00 Temp 98.2 99.4 98.2 99.4 Pulse 72 77 Resp 20 18 B/P (MAP) 138/73 (94) 139/71 (93) Pulse Ox 96 95 O2 Delivery Room Air Room Air Room Air Room Air 11/21/19 11/21/19 11/21/19 11/21/19 19:00 19:05 21:01 21:01 Temp 97.9 97.9 Pulse 77 77 Resp 18 18 B/P (MAP) 145/83 (103) 145/83 Pulse Ox 96 96 O2 Delivery Room Air Room Air Room Air 11/21/19 11/21/19 11/22/19 11/22/19 21:31 22:59 02:14 02:23 Temp 98.4 98.6 98.4 98.6 Pulse 67 63 Resp 18 16 16 16 B/P (MAP) 125/76 (92) 114/82 (93) Pulse Ox 96 95 94 O2 Delivery Room Air Room Air Room Air Room Air O2 Flow Rate 10.0 11/22/19 11/22/19 11/22/19 03:14 07:00 07:15 Temp 98.3 98.3 Pulse 77 Resp 18 B/P (MAP) 133/76 (95) Pulse Ox 94 94 O2 Delivery Room Air Room Air Room Air Intake and Output 11/21/19 11/21/19 11/22/19 15:00 23:00 07:00 Intake Total 200 ml 180 ml 300 ml Output Total 475 ml 900 ml Balance 200 ml -295 ml -600 ml Justifications for Admission Other Justification Other justification for admit: septic knee BRAD CASTILLO MD Nov 22, 2019 08:37
[2019-11-22] MEDS: TICAGRELOR 90 MG TABLET. PO SCH ×2 (08:40→20:30)
[2019-11-22] MEDS: LACTOBACILLUS RHAMNOSUS GG 1 CAPSULE. PO SCH ×2 (08:40→20:29)
[2019-11-22] MEDS: METOPROLOL TART IMMED RELEASE 25 MG TABLET. PO SCH ×2 (08:41→20:30)
[2019-11-22] MEDS: ASCORBIC ACID 500 MG TABLET PO SCH (08:41)
[2019-11-22] MEDS: ASPIRIN ENTERIC COATED 81 MG TABLET.DR. PO SCH (08:41)
[2019-11-22] MEDS: LOSARTAN POTASSIUM 50 MG TABLET. PO SCH (08:41)
[2019-11-22] MEDS: CHOLECALCIFEROL (VITAMIN D3) 1,000 UNIT TABLET PO SCH (08:41)
[2019-11-22] MEDS: hydroCHLOROthiazide 12.5 MG CAPSULE PO SCH (08:41)
[2019-11-22] MEDS: cefTRIAXone IV Push 2 GM VIAL. IVP SCH (09:08)
--- NOTE | 2019-11-22 10:29 | NUR ---
SS following up with discharge planning. SS reviewed pt chart and discussed with pt RN. Pt is currently on room air. PT/OT recommended home. Pt may need IV antibiotics at discharge. SS met with pt and discussed. Pt reported that if IV antibiotics are needed he wants in home IV antibiotics. Pt reported that his spouse is a RN and can administer the medications at home. SS phoned and faxed face sheet and clinical to [employer], ; fax [phone], for benefit check. SS will continue to follow for discharge planning.
[2019-11-22 11:00] VITALS: BP 121/85
[2019-11-22] MEDS ORDERED: LIDOCAINE WITH 8.4% SOD BICARB 3 ML DISP.SYRIN. ONE (11:58)
[2019-11-22] MEDS: ENOXAPARIN 40 MG/0.4 ML SYRINGE. SQ SCH (12:00)
[2019-11-22] MEDS ORDERED: LIDOCAINE WITH 8.4% SOD BICARB 3 ML DISP.SYRIN. INJ ONE (12:15)
--- NOTE | 2019-11-22 14:42 | NUR ---
SS following up with discharge planning. [employer] contacted SS and notified that pt is covered at 100% for IV antibiotics at home. Pt's RN notified. SS will continue to follow for discharge planning.
[2019-11-22 15:00] VITALS: BP 126/80
--- NOTE | 2019-11-22 15:19 | RAD ---
Exam: Fluoroscopic and ultrasound guided right percutaneous inserted central venous catheter placement 11/22/2019 1:16 PM .Indication: correction antibiotics Technique: Informed oral and written consent were obtained. The right upper extremity was prepped and draped using sterile barrier technique. All elements of maximal sterile barrier technique including the use of a cap, mask, sterile gown, sterile gloves, large sterile sheet, appropriate hand hygiene, and 2% chlorhexidine for cutaneous antisepsis (or acceptable alternative antiseptic per current guidelines) were followed for this procedure.. Real-time ultrasound demonstrated a patent right basilic vein which was prepped and draped in usual sterile fashion. 1% lidocaine used for local anesthesia. Using real-time ultrasound guidance the access needle percutaneously punctured the selected right basilic vein. Reference ultrasound images were saved to the medical record. A guidewire was advanced through the needle to the cavoatrial junction, and a peel-away sheath placed. The catheter was cut to length and inserted through the peel-away sheath such that its tip is at the cavoatrial junction. The wire and sheath were removed, and the catheter secured in place, and a sterile dressing was applied. Catheter was found to flush and aspirate normally. No immediate complications are identified. FLUORO TIME: 0.5 min DOSE AREA PRODUCT: 2 Gycm2 Impression: Ultrasound and fluoroscopically guided placement of a right upper extremity PICC line.
[2019-11-22 19:10] VITALS: BP 148/88
--- NOTE | 2019-11-22 19:10 | NUR ---
Pt sitting on side of bed assessment completed vss poc explained pt c/o pain to rt knee will medicate pt and apply ice to knee and continue to monitor pt.
[2019-11-22] MEDS: rOPINIRole 0.25 MG TABLET. PO SCH (20:29)
[2019-11-22] MEDS: ATORVASTATIN CALCIUM 10 MG TABLET. PO SCH (20:29)
[2019-11-22] MEDS ORDERED: HYDR-2769 PO (21:52)
--- NOTE | 2019-11-22 21:53 | SNU/HH DC ---
DISCHARGE WITH HOME HEALTH DISCHARGE INFORMATION: Discharge Date: Nov 22, 2019 Condition on Discharge: Stable CODE STATUS: Code Status: Full HOME HEALTH: Face to Face: I certify this patient is under my care and that I, or a nurse practitioner or annabella parks's assistant technician working with me, had a face to face encounter that meets the physician face to face encounter requirements with this patient on []. RN For Eval/Treatment: Yes Physical Therapy For: Evalulation/Treatment Pt Meets Homebound Status: Unsteady balance w/ amb, POST DISCHARGE ORDERS: Activity Instructions for Disc: Activity as tolerated Weight Bearing Status after Di: No restrictions Other wound/incision instructi: picc line care CHECKS AFTER DISCHARGE: Checks after discharge: Check blood press - daily, Check your Temp as needed TREATMENT/EQUIPMENT ORDERS: Adaptive Equipment Issued: None Infusion Equipment, home use: PICC Line CERTIFICATION STATEMENT: Certification Statement: Certification Statement: Based on the above finding, I certify that this patient is confined to the home and needs intermittent halfway care, physical therapy and/or speech therapy, or continues to need occupational therapy.~ This patient is under my care, and I have initiated the establishment of the plan of care.~ This patient will be followed by myself or a community physician who will periodically review the plan of care. Home Meds Active Scripts Hydrocodone Bit/Acetaminophen (HYDROCODONE-APAP 10-325 ) 1 Tab Tablet, 1 TAB PO PRN Q6HRS PRN for MODERATE-SEVERE PAIN for 7 Days, TAB Prov:BRAD CASTILLO MD 11/22/19 Metoprolol Tartrate (METOPROLOL TARTRATE) 25 Mg Tablet, 25 MG PO BID for cad for 30 Days, #60 TAB Prov:BRAD CASTILLO MD 11/08/19 Ticagrelor (BRILINTA) 90 Mg Tablet, 90 MG PO BID for stent for 30 Days, #60 TAB Prov:BRAD CASTILLO MD 11/08/19 Aspirin (ASPIRIN EC) 81 Mg Tablet.dr, 81 MG PO DAILYWBKFT for cad for 100 Days, #100 TAB.SR Prov:BRAD CASTILLO MD 11/08/19 Reported Medications Atorvastatin Calcium (LIPITOR) 10 Mg Tablet, 10 MG PO HS for FOR CHOLESTEROL, #30 TAB 0 Refills 11/09/19 Acetaminophen Er (ACETAMINOPHEN EXT.RELEASE) 650 Mg Tablet.er, 650 MG PO PRN Q8HRS PRN for FEVER/PAIN, TAB.SR 11/07/19 Ascorbic Acid (VITAMIN C) 100 Mg Tablet, 1000 MG PO DAILY for supp, TAB 11/07/19 Losartan Potassium (LOSARTAN POTASSIUM) 50 Mg Tablet, 50 MG PO DAILY for H YPERTENSION, TAB 11/07/19 Hydrochlorothiazide (HYDROCHLOROTHIAZIDE TABLET) 12.5 Mg Tablet, 12.5 MG PO DAILY for DIURETIC, TAB 0 Refills 11/07/19 Cholecalciferol (Vitamin D3) (D3-50) 50,000 Unit Capsule, 2000 UNIT PO DAILY for supp, CAP 11/07/19 Ropinirole Hcl (ROPINIROLE HCL) 0.25 Mg Tablet, 0.25 MG PO HS for Leg Cramps, TAB 11/07/19 Discontinued Scripts Clindamycin Hcl (CLINDAMYCIN HCL) 150 Mg Capsule, 3 CAP PO TID, #90 CAP Prov:ANANT DONIS APRN 11/14/19 BRAD CASTILLO MD Nov 22, 2019 21:53
[2019-11-22 22:53] VITALS: BP 111/73
[2019-11-23 03:08] VITALS: BP 132/85
[2019-11-23] MEDS: HYDROcodone/APAP 10/325 1 TAB TABLET PO PRN ×2 (03:24→09:57)
[2019-11-23 07:00] VITALS: BP 122/85
--- NOTE | 2019-11-23 08:31 | PDOC ---
Infectious Disease Note Subjective Subjective feeling better ROS ROS no n/v/d/sob knee is getting better Vital Sign Vital Signs Vital Signs Date Time Temp Pulse Resp B/P (MAP) Pulse Ox O2 Delivery O2 Flow Rate FiO2 11/23/19 04:28 16 96 Room Air 11/23/19 03:08 97.6 55 132/85 (101) 97.6 Physical Exam PHYSICAL EXAM CONSTITUTIONAL: He is lying in bed. He is cooperative. He is in no acute distress. looks well HEENT: Pupils equal and reactive. He has normal conjunctivae. Oral cavity, pharynx is clear. NECK: Supple. Good range of motion. LUNGS: Clear to auscultation bilaterally. HEART: S1, S2. ABDOMEN: Soft, nontender, no guarding or rebound. EXTREMITIES: Without clubbing, cyanosis. Right knee has a postoperative dressing in place. His right foot has trace edema. He has good sensation. He moves all extremities and has good pulses. SKIN: Warm to touch without signs of rash. NEUROLOGIC: Nonfocal. PSYCHIATRIC: Affect is appropriate. Labs Micro Microbiology culture neg Objective Assessment Fever leukocytosis - s/p Solummedrol and post op ? Septic r knee s/p I and D 11/17 - cults neg so far,,, CPPD crystals +, GABBIE - Plan Plan of Care pt has pseudogout, culture neg, d/w Dr Gomez, his exam in OR , did not suggest infection, says, and he is comfortable not treating as septic knee d/w Dr Finn pt feels comfortable, pros and cons discussed , potential complications discussed pt verbalized understanding and is comfortable going home on po antibiotics as post op f/u with Dr Finn, f/u with me if needed DALE MIKE MD Nov 23, 2019 08:30
[2019-11-23] MEDS: CHOLECALCIFEROL (VITAMIN D3) 1,000 UNIT TABLET PO SCH (08:43)
[2019-11-23] MEDS: ASCORBIC ACID 500 MG TABLET PO SCH (08:43)
[2019-11-23] MEDS: TICAGRELOR 90 MG TABLET. PO SCH (08:43)
[2019-11-23] MEDS: ASPIRIN ENTERIC COATED 81 MG TABLET.DR. PO SCH (08:43)
[2019-11-23] MEDS: LACTOBACILLUS RHAMNOSUS GG 1 CAPSULE. PO SCH (08:43)
[2019-11-23] MEDS: hydroCHLOROthiazide 12.5 MG CAPSULE PO SCH (08:43)
[2019-11-23 08:44] VITALS: BP 122/85
[2019-11-23] MEDS: METOPROLOL TART IMMED RELEASE 25 MG TABLET. PO SCH (08:44)
[2019-11-23] MEDS: LOSARTAN POTASSIUM 50 MG TABLET. PO SCH (08:44)
[2019-11-23] MEDS: cefTRIAXone IV Push 2 GM VIAL. IVP SCH (08:45)
[2019-11-23] MEDS ORDERED: CEFDINIR 300 MG CAPSULE PO SCH (09:00)
--- NOTE | 2019-11-23 09:09 | PDOC ---
PROGRESS NOTES Date of Service: DATE: 11/23/19 TIME: 09:09 Objective Objective Vital Signs Date Time Temp Pulse Resp B/P (MAP) Pulse Ox O2 Delivery O2 Flow Rate FiO2 11/23/19 08:44 61 122/85 11/23/19 07:00 98.4 16 97 Room Air 98.4 Intake and Output 11/23/19 07:00 Intake Total 700 ml Output Total 3225 ml Balance -2525 ml Intake Oral 700 ml Output Urine Total 3225 ml Physical Exam Abdomen: Soft, No tenderness Heart: Regular rate (SR), Normal S1, Normal S2, No murmurs Extremities: No cyanosis, No edema General: Alert, Oriented X3, Cooperative, No acute distress HEENT: Atraumatic, Mucous membr. moist/pink Lungs: Clear to auscultation, Normal air movement MUSCULOSKELETAL: Osteoarthritic changes both hands Neuro: Normal speech, Sensation intact Psych/Mental Status: Mental status NL, Mood NL Skin: No breakdown, No significant lesion COMMENT rt foot warm Assessment Assessment FINAL IMPRESSION: 1. Right knee pain and swelling.?septic knee 2. Right lower leg ischemia. 3. Recent coronary artery disease, angioplasty, stenting of left anterior descending. 4. Hypertension. 5. Hyperlipidemia. 6. History of gout. PLAN: ? PICC line,posible d/c tomorrow home iv antibiotics?ESSIE for 3 weeks spoke with ID IV antibiotics Daptomycin+cefepime for now Date of surgery: 11/18/2019,POD#2 Preoperative diagnosis: Right knee effusion and concern for septic joint Postoperative diagnosis: Same with partial-thickness chondral defect and fraying medial femoral condyle and free edge lateral meniscus tear Operative procedure: Right knee arthroscopy with irrigation debridement of septic knee, chondroplasty medial femoral condyle and partial lateral meniscectomy Surgeon: Patricia. Arteial doppler good blood flow Rt knee joint aspiration 30,000 wbc LAbs good. c r protien elevated c/s neg Comment Review of Relevant I have reviewed the following items dread (where applicable) has been applied. Labs Microbiology 11/18/19 Gram Stain - Final, Resulted 11/18/19 Aerobic and Anaerobic Culture - Preliminary, Resulted Medications Current Medications Cefdinir (Omnicef) 300 mg BID PO ; Start 11/23/19 at 09:00 Lidocaine HCl (Buffered Lidocaine 1%) 3 ml STK-MED ONCE .ROUTE ; Start 11/22/19 at 11:58; Stop 11/22/19 at 11:58; Status DC Lidocaine HCl (Buffered Lidocaine 1%) 6 ml 1X ONCE INJ Last administered on 11/22/19at 12:15; Start 11/22/19 at 12:15; Stop 11/22/19 at 12:16; Status DC Vitals/I & O Vital Sign - Last 24 Hours 11/22/19 11/22/19 11/22/19 11/22/19 11:00 12:47 13:47 15:00 Temp 98.1 97.6 98.1 97.6 Pulse 73 66 Resp 16 20 B/P (MAP) 121/85 (97) 126/80 (95) Pulse Ox 95 97 O2 Delivery Room Air Room Air Room Air Room Air 11/22/19 11/22/19 11/22/19 11/22/19 19:10 19:10 20:30 20:30 Temp 98.2 98.2 Pulse 70 70 Resp 18 18 B/P (MAP) 148/88 (108) 148/88 Pulse Ox 98 O2 Delivery Room Air Room Air Room Air 11/22/19 11/22/19 11/23/19 11/23/19 21:30 22:53 03:08 03:24 Temp 98.4 97.6 98.4 97.6 Pulse 60 55 Resp 16 18 18 18 B/P (MAP) 111/73 (86) 132/85 (101) Pulse Ox 98 99 96 96 O2 Delivery Room Air Room Air Room Air Room Air 11/23/19 11/23/19 11/23/19 11/23/19 04:28 07:00 08:44 08:44 Temp 98.4 98.4 Pulse 61 61 61 Resp 16 16 B/P (MAP) 122/85 (97) 122/85 122/85 Pulse Ox 96 97 O2 Delivery Room Air Room Air Intake and Output 11/22/19 11/22/19 11/23/19 15:00 23:00 07:00 Intake Total 300 ml 100 ml 300 ml Output Total 800 ml 900 ml 1525 ml Balance -500 ml -800 ml -1225 ml Justifications for Admission Other Justification Other justification for admit: septic knee BRAD CASTILLO MD Nov 23, 2019 09:09
[2019-11-23] MEDS ORDERED: PRED20TA PO (09:12)
[2019-11-23] MEDS ORDERED: COLC0.6T42 PO (09:12)
[2019-11-23] MEDS ORDERED: CEFD300C PO (10:34)
--- NOTE | 2019-11-23 10:59 | PDOC ---
PROGRESS NOTES Date of Service: DATE: 11/23/19 TIME: 10:57 Subjective Subjective ready to go home Objective Objective Vital Signs Date Time Temp Pulse Resp B/P (MAP) Pulse Ox O2 Delivery O2 Flow Rate FiO2 11/23/19 09:57 97 Room Air 10.0 11/23/19 08:44 61 122/85 11/23/19 07:00 98.4 16 98.4 Intake and Output 11/23/19 07:00 Intake Total 700 ml Output Total 3225 ml Balance -2525 ml Intake Oral 700 ml Output Urine Total 3225 ml Physical Exam Abdomen: Soft, No tenderness Heart: Regular rate (SR), Normal S1, Normal S2, No murmurs Extremities: No cyanosis, No edema General: Alert, Oriented X3, Cooperative, No acute distress HEENT: Atraumatic, Mucous membr. moist/pink Lungs: Clear to auscultation, Normal air movement MUSCULOSKELETAL: Osteoarthritic changes both hands Neuro: Normal speech, Sensation intact Psych/Mental Status: Mental status NL, Mood NL Skin: No breakdown, No significant lesion COMMENT rt foot warm Assessment Assessment FINAL IMPRESSION: 1. Right knee pain and swelling.? not septic knee 2. Right lower leg ischemia. 3. Recent coronary artery disease, angioplasty, stenting of left anterior descending. 4. Hypertension. 5. Hyperlipidemia. 6. History of gout. PLAN: fluid c/s neg crystals positive from fluid rt knee. d/c home today spoke with ID treat for gout attacks prn spoke with ID Date of surgery: 11/18/2019,POD#2 Preoperative diagnosis: Right knee effusion and concern for septic joint Postoperative diagnosis: Same with partial-thickness chondral defect and fraying medial femoral condyle and free edge lateral meniscus tear Operative procedure: Right knee arthroscopy with irrigation debridement of septic knee, chondroplasty medial femoral condyle and partial lateral meniscectomy Surgeon: Patricia. Arteial doppler good blood flow Rt knee joint aspiration 30,000 wbc LAbs good. c r protien elevated c/s neg Comment Review of Relevant I have reviewed the following items dread (where applicable) has been applied. Labs Microbiology 11/18/19 Gram Stain - Final, Complete 11/18/19 Aerobic and Anaerobic Culture - Final, Complete Medications Current Medications Cefdinir (Omnicef) 300 mg BID PO ; Start 11/23/19 at 09:00 Lidocaine HCl (Buffered Lidocaine 1%) 3 ml STK-MED ONCE .ROUTE ; Start 11/22/19 at 11:58; Stop 11/22/19 at 11:58; Status DC Lidocaine HCl (Buffered Lidocaine 1%) 6 ml 1X ONCE INJ Last administered on 11/22/19at 12:15; Start 11/22/19 at 12:15; Stop 11/22/19 at 12:16; Status DC Vitals/I & O Vital Sign - Last 24 Hours 11/22/19 11/22/19 11/22/19 11/22/19 11:00 12:47 13:47 15:00 Temp 98.1 97.6 98.1 97.6 Pulse 73 66 Resp 16 20 B/P (MAP) 121/85 (97) 126/80 (95) Pulse Ox 95 97 O2 Delivery Room Air Room Air Room Air Room Air 11/22/19 11/22/19 11/22/19 11/22/19 19:10 19:10 20:30 20:30 Temp 98.2 98.2 Pulse 70 70 Resp 18 18 B/P (MAP) 148/88 (108) 148/88 Pulse Ox 98 O2 Delivery Room Air Room Air Room Air 11/22/19 11/22/19 11/23/19 11/23/19 21:30 22:53 03:08 03:24 Temp 98.4 97.6 98.4 97.6 Pulse 60 55 Resp 16 18 18 18 B/P (MAP) 111/73 (86) 132/85 (101) Pulse Ox 98 99 96 96 O2 Delivery Room Air Room Air Room Air Room Air 11/23/19 11/23/19 11/23/19 11/23/19 04:28 07:00 08:00 08:44 Temp 98.4 98.4 Pulse 61 61 Resp 16 16 B/P (MAP) 122/85 (97) 122/85 Pulse Ox 96 97 O2 Delivery Room Air Room Air Room Air 11/23/19 11/23/19 08:44 09:57 Pulse 61 B/P (MAP) 122/85 Pulse Ox 97 O2 Delivery Room Air O2 Flow Rate 10.0 Intake and Output 11/22/19 11/22/19 11/23/19 15:00 23:00 07:00 Intake Total 300 ml 100 ml 300 ml Output Total 800 ml 900 ml 1525 ml Balance -500 ml -800 ml -1225 ml Justifications for Admission Other Justification Other justification for admit: septic knee BRAD CASTILLO MD Nov 23, 2019 10:59
--- NOTE | 2019-11-23 11:39 | NUR ---
Discharge Note: RIRI MILAN Discharge instructions and discharge home medications reviewed with Patient and a copy given. All questions have been answered and understanding verbalized. PICC line removed prior to DC. Instructions and prescriptions given to daughter. Pt spoke to physical therapy just prior to DC. Patient stated he would follow up with Dr. Wolfe for physical therapy needs.
--- NOTE | 2019-11-25 14:44 | PDOC ---
Provider Note Provider Note Discharge summary dictated.#[id number]. Justifications for Admission Other Justification septic knee BRAD CASTILLO MD Nov 25, 2019 14:44
--- NOTE | 2019-11-25 15:24 | DS ---
DATE OF DISCHARGE: 11/23/2019 REASON FOR ADMISSION TO THE HOSPITAL: 1. The patient had pain in the right foot, which is ischemic looking. 2. Right knee swelling. CONSULTATION: Dr. Brook Steve, Vascular; Dr. Gomez, Orthopedic; Cardiology, Dr. Mitchell and Infectious Disease; Dr. Aguilar. PROCEDURES DONE: 1. Arterial Doppler. 2. PICC line insertion. 3. Right knee aspiration. 4. Right knee arthroscopy. HOSPITAL COURSE: The patient is a 54-year-old male. Patient recently had a cardiac cath and stent placement, it went through the right radial artery. He was having pain in the right foot, went to the urgent care, was given clindamycin, thought it was cellulitis. The patient also seen orthopedic outpatient. Over the course of last he developed swelling in the right knee, hardly able to move. The patient came to the office, his right foot was cold, little bit of pale and some tenderness. It was thought arterial ischemia. The patient had a stat arterial Doppler and good flow, seen by Vascular thinking there was any acute vascular problem. The patient had a right knee swelling. Had aspiration of the joint by orthopedic and shows a 33,000 wbc's. The patient was later on in the day, taken to surgery, had a right knee arthroscopy with irrigation and debridement, possible septic knee, had a chondroplasty of medial femoral condyle and partial lateral laminectomy. The patient was treated with broad-spectrum antibiotics and nothing grew on the cultures and crystals was positive couple of days later on the synovial fluid. The patient was seen by Infectious Disease and after treating with broad-spectrum antibiotics daptomycin and Zosyn and after the cultures came back negative and stress test was positive. It was decided that probably the patient may have acute gouty attack and does not look like a septic knee. Antibiotics were stopped and the patient was discharged on gout medications. The patient's foot was improving back to normal color and good pulses. FINAL DIAGNOSES: 1. Possible gout attack of the right knee and the right foot. 2. Arthroscopy, right knee with irrigation and debridement and chondroplasty, right medial femoral condyle and partial lateral meniscectomy. 3. Recent coronary artery disease, had a cardiac catheterization and stent placed for LAD lesion. 4. Hypertension. 5. Hyperlipidemia. 6. Uric acid was 7.4. C-reactive protein was 102. 7. COVID was negative. BRAD CASTILLO MD DR: FINESSE/alecia JOB#: [id number] / [id number]
== END 2019-11-23 11:15 | disposition home or self-care (01) | DRG 486 ==
LOC: 2 NORTH 10:52
PROVIDERS: ADMIT Internal Medicine; ATTEND Internal Medicine
PROC: 0SBC4ZZ Excision of Right Knee Joint, Percutaneous Endoscopic Approach (ICD-10-PCS; 2019-11-18)
PROC: 0SBC4ZZ Excision of Right Knee Joint, Percutaneous Endoscopic Approach (ICD-10-PCS; principal; 2019-11-18 15:00)
DX: M00.9 Pyogenic arthritis, unspecified (principal); N17.9 Acute kidney failure, unspecified; E78.5 Hyperlipidemia, unspecified; I10 Essential (primary) hypertension; I25.10 Atherosclerotic heart disease of native coronary artery without angina pectoris; I25.2 Old myocardial infarction; K59.00 Constipation, unspecified; S83.281A Other tear of lateral meniscus, current injury, right knee, initial encounter; X58.XXXA Exposure to other specified factors, initial encounter; Y93.89 Activity, other specified; Y92.89 Other specified places as the place of occurrence of the external cause; Y99.8 Other external cause status; Z82.49 Family history of ischemic heart disease and other diseases of the circulatory system; Z86.718 Personal history of other venous thrombosis and embolism; Z95.5 Presence of coronary angioplasty implant and graft; M10.9 Gout, unspecified; M19.90 Unspecified osteoarthritis, unspecified site; Z20.828 Contact with and (suspected) exposure to other viral communicable diseases
CPT/HCPCS: 36415; 36573; 77001; 80053; 82550; 82565; 84550; 85025; 85610; 86140; 87071; 87075; 87426; 89050; 89060; 93923; A7015; C1751; C1892; J0692; J0696; J0878; J1100; J1650; J2270; J2405; J2704; J3010; J3370; J3490; J7040; J7050; J7120; 97110-GP; 97116-GP; 97530-GP; 97535-GO; G0378; J7030; U0003-CS

== ENCOUNTER 2019-12-18 11:32 | Inpatient (IN) | payer BC ==
[~2019-12-18] VITALS: Ht 180.3 cm; Wt 96.4 kg
[~2019-12-18 11:32] MED LIST changes: +CEFD300C PO; +COLC0.6T42 PO; +HYDR-2769 PO; +PRED20TA PO
[2019-12-18] MEDS ORDERED: IV NORMAL SALINE 1000ML BAG 1,000 ML IV ONE (13:00)
[2019-12-18] MEDS ORDERED: ONDANSETRON PF 4 MG/2 ML VIAL. IV ONE (13:00)
[2019-12-18] MEDS ORDERED: MORPHINE SULFATE 4 MG/ML VIAL. IV ONE (13:00)
[2019-12-18 13:01] LABS: BASO # 0.1 x10^3/uL (0.0-0.2); BASO % 1 % (0-3); EOS # 0.1 x10^3/uL (0.0-0.7); EOS % 1 % (0-3); HEMATOCRIT 42.6 % (39.0-53.0); HEMOGLOBIN 14.8 g/dL (13.0-17.5); LYMPH # 2.6 x10^3/uL (1.0-4.8); LYMPH % 20 % (24-48); MEAN CORPUSCULAR HEMOGLOBIN 30 pg (25-35); MEAN CORPUSCULAR HGB CONC 35 g/dL (31-37); MEAN CORPUSCULAR VOLUME 86 fL (79-100); MONO # 1.6 x10^3/uL (0.0-1.1); MONO % 12 % (0-9); NEUT # 8.3 x10^3/uL (1.8-7.7); NEUT % 66 % (31-73); PLATELET COUNT 289 x10^3/uL (140-400); RED BLOOD COUNT 4.95 x10^6/uL (4.30-5.70); RED CELL DISTRIBUTION WIDTH 13.4 % (11.5-14.5); WHITE BLOOD COUNT 12.6 x10^3/uL (4.0-11.0)
[2019-12-18 13:14] LABS: CALCIUM 9.2 mg/dL (8.5-10.1); GFR 77.9; POTASSIUM 3.7 mmol/L (3.5-5.1)
[2019-12-18 13:20] LABS: ALBUMIN 4.1 g/dL (3.4-5.0); ALBUMIN/GLOBULIN RATIO 0.9 (1.0-1.7); C-REACTIVE PROTEIN 104.4 mg/L (0-3.3); TOTAL BILIRUBIN 1.1 mg/dL (0.2-1.0); TOTAL PROTEIN 8.5 g/dL (6.4-8.2); URIC ACID 6.4 mg/dL (3.5-7.2)
--- NOTE | 2019-12-18 13:22 | RAD ---
Right knee 3 views. HISTORY: Pain and swelling 3 views were taken of the right knee. There is mild chondrocalcinosis. There is no fracture. There is mild soft tissue swelling superficially. There is a moderate joint effusion. IMPRESSION: 1. Mild chondrocalcinosis. 2. Prominent joint effusion right knee. Electronically signed by: Darek Anne MD (12/18/2019 1:20 PM) [id number]
--- NOTE | 2019-12-18 14:07 | PHYS DOC ---
Past Medical History Past Medical History: Angina, DVT, Hypertension Past Surgical History: Other Additional Past Surgical Histo: CARDIAC STENTS, right knee infection Smoking Status: Never Smoker Alcohol Use: None General Adult EDM: Chief Complaint: KNEE INJURY HPI: HPI: Patient is a 54 year old to the emergency department with complaints of right knee swelling, pain, and inability to bear weight for the last 3 days. Patient reports that on November 08, 2019 had 2 heart stents placed by Dr. Wilbur Trammell 4 days after that his right leg became swollen and red he was diagnosed with cellulitis and treated with clindamycin. His symptoms did not improve and he was later admitted to the hospital by Dr. Castillo and diagnosed with pseudogout. Patient states that he had been doing fine all week last week until Thursday after he was out weed eating for approximately 30 minutes. He denies any twisting injury or fall. He denies any trauma to the knee. He states that after he had ran the [employer] his leg began to hurt. He reports that his right knee is very hot to touch, he currently rates the pain a 10 out of 10 on the pain scale he denies any alleviating factors, the pain is worse with palpation and weightbearing, he describes it as a tender, sharp sensation. He reports that he took a tablet of hydrocodone at 730 this morning but it did not help reduce his pain at all. Review of Systems: Review of Systems: Constitutional: Denies fever or chills. [] Respiratory: Denies cough or shortness of breath. [] Cardiovascular: Denies chest pain or edema. [] Musculoskeletal: See HPI Integument: Denies rash or erythema. Patient denies any drainage from his recent surgical procedure sites of his right knee, see HPI Neurologic: Denies headache, focal weakness or sensory changes. [] Complete ROS is negative unless otherwise stated in the HPI. Heart Score: Risk Factors: Risk Factors: DM, Current or recent (<one month) smoker, HTN, HLP, family history of CAD, obesity. Risk Scores: Score 0 - 3: 2.5% MACE over next 6 weeks - Discharge Home Score 4 - 6: 20.3% MACE over next 6 weeks - Admit for Clinical Observation Score 7 - 10: 72.7% MACE over next 6 weeks - Early Invasive Strategies Current Medications: Current Medications Medications (Trade) Dose Ordered Sig/Kathie Start Time Stop Time Status Last Admin Dose Admin Morphine Sulfate (Morphine Sulfate) 4 mg 1X ONCE 12/18/19 13:00 12/18/19 13:01 DC 12/18/19 13:08 4 MG Ondansetron HCl (Zofran) 4 mg 1X ONCE 12/18/19 13:00 12/18/19 13:01 DC 12/18/19 13:07 4 MG Sodium Chloride 1,000 ml @ 1,000 mls/hr 1X ONCE 12/18/19 13:00 12/18/19 13:59 DC 12/18/19 13:07 1,000 MLS/HR Allergies: Allergies: Allergies Coded Allergies Type Severity Reaction Last Updated Verified No Known Drug Allergies 02/26/16 No Physical Exam: PE: Constitutional: Well developed, well nourished, no acute distress, non-toxic appearance. [] HENT: Normocephalic, atraumatic, bilateral external ears normal, nose normal. [] Eyes: PERRLA, EOMI, conjunctiva normal, no discharge. [] Neck: Normal range of motion, no stridor. [] Cardiovascular:Heart rate regular rhythm Lungs & Thorax: Respirations even and unlabored, no retractions, no respiratory distress Skin: Warm, dry, no erythema, no rash; right knee: 2 laparoscopic incision sites noted to anterior right knee without drainage, or bleeding, there is immense warmth and 2+ edema noted to the right knee. [] Extremities: Right knee: Diffuse TTP, sensation intact, no cyanosis, ROM limited due to pain, 2+ edema. [] Neurologic: Alert and oriented X 3, no focal deficits noted. [] Psychologic: Affect normal, judgement normal, mood normal. [] Current Patient Data: Labs: Laboratory Tests Test 12/18/19 12:40 White Blood Count 12.6 x10^3/uL (4.0-11.0) H Red Blood Count 4.95 x10^6/uL (4.30-5.70) Hemoglobin 14.8 g/dL (13.0-17.5) Hematocrit 42.6 % (39.0-53.0) Mean Corpuscular Volume 86 fL (79-100) Mean Corpuscular Hemoglobin 30 pg (25-35) Mean Corpuscular Hemoglobin Concent 35 g/dL (31-37) Red Cell Distribution Width 13.4 % (11.5-14.5) Platelet Count 289 x10^3/uL (140-400) Neutrophils (%) (Auto) 66 % (31-73) Lymphocytes (%) (Auto) 20 % (24-48) L Monocytes (%) (Auto) 12 % (0-9) H Eosinophils (%) (Auto) 1 % (0-3) Basophils (%) (Auto) 1 % (0-3) Neutrophils # (Auto) 8.3 x10^3/uL (1.8-7.7) H Lymphocytes # (Auto) 2.6 x10^3/uL (1.0-4.8) Monocytes # (Auto) 1.6 x10^3/uL (0.0-1.1) H Eosinophils # (Auto) 0.1 x10^3/uL (0.0-0.7) Basophils # (Auto) 0.1 x10^3/uL (0.0-0.2) Sodium Level 137 mmol/L (136-145) Potassium Level 3.7 mmol/L (3.5-5.1) Chloride Level 98 mmol/L (98-107) Carbon Dioxide Level 29 mmol/L (21-32) Anion Gap 10 (6-14) Blood Urea Nitrogen 14 mg/dL (8-26) Creatinine 1.0 mg/dL (0.7-1.3) Estimated GFR (Cockcroft-Gault) 77.9 BUN/Creatinine Ratio 14 (6-20) Glucose Level 130 mg/dL (70-99) H Lactic Acid Level 2.3 mmol/L (0.4-2.0) H Uric Acid 6.4 mg/dL (3.5-7.2) Calcium Level 9.2 mg/dL (8.5-10.1) Total Bilirubin 1.1 mg/dL (0.2-1.0) H Aspartate Amino Transferase (AST) 20 U/L (15-37) Alanine Aminotransferase (ALT) 63 U/L (16-63) Alkaline Phosphatase 60 U/L (46-116) C-Reactive Protein, Quantitative 104.4 mg/L (0-3.3) H Total Protein 8.5 g/dL (6.4-8.2) H Albumin 4.1 g/dL (3.4-5.0) Albumin/Globulin Ratio 0.9 (1.0-1.7) L Laboratory Tests 12/18/19 12:40 Laboratory Tests 12/18/19 12:40 Vital Signs: Vital Signs Date Time Temp Pulse Resp B/P (MAP) Pulse Ox O2 Delivery O2 Flow Rate FiO2 12/18/19 12:00 97.9 54 17 160/99 (119) 96 Room Air 97.9 EKG: EKG: [] Radiology/Procedures: Radiology/Procedures: PROCEDURE: KNEE RIGHT 3V Right knee 3 views. HISTORY: Pain and swelling 3 views were taken of the right knee. There is mild chondrocalcinosis. There is no fracture. There is mild soft tissue swelling superficially. There is a moderate joint effusion. IMPRESSION: 1. Mild chondrocalcinosis. 2. Prominent joint effusion right knee.[] Course & Med Decision Making: Course & Med Decision Making Pertinent Labs and Imaging studies reviewed. (See chart for details) [id number] spoke with Dr. Garcia about the patient. Dr. Garcia recommends admission. H e would like to hold antibiotics at this time. He plans to take the patient to the OR to evaluate his knee and antibiotics will impact the patient's culture results. 1315-spoke with Dr. Castillo who is the admitting physician, and care was assumed following discussion of patient. Will consult Rheumatology as requested, advised of Dr. Garcia's plan to take pt to the OR tomorrow. Patient's vital signs stable. Patient remains afebrile, appears nontoxic, respirations even and unlabored. Patient will be admitted to the med/surg floor. Patient's case and plan of care also discussed with Dr. Costello [] Jen Disclaimer: Jen Disclaimer: This electronic medical record was generated, in whole or in part, using a voice recognition dictation system. Departure Departure Impression: Primary Impression: Right knee pain Qualified Codes: M25.561 - Pain in right knee Additional Impression: Inability to bear weight Disposition: ADMITTED INPATIENT Admitting Physician: Clifford Castillo Condition: STABLE Referrals: CLIFFORD CASTILLO MD (PCP) Justicifation of Admission Dx: Justifications for Admission: Justification of Admission Dx: Yes Angina: Unstable Variant Comments: Possible septic joint, right knee pain, unable to ambulate ALLISON LOERA APRN Dec 18, 2019 14:07
[2019-12-18] MEDS ORDERED: OMEG1CAP50 PO (15:54)
[2019-12-18] MEDS: HYDROcodone/APAP 10/325 1 TAB TABLET PO PRN ×2 (16:29→23:46)
[2019-12-18] MEDS: fentaNYL PF VIAL 100 MCG/2 ML VIAL IVP PRN ×2 (16:30→20:32)
[2019-12-18] MEDS ORDERED: ACETAMINOPHEN 325 MG TABLET. PO PRN (16:45)
[2019-12-18 19:00] VITALS: BP 122/80
[2019-12-18] MEDS: METOPROLOL TART IMMED RELEASE 25 MG TABLET. PO SCH (20:32)
[2019-12-18] MEDS: ATORVASTATIN CALCIUM 10 MG TABLET. PO SCH (20:32)
[2019-12-18] MEDS: rOPINIRole 0.25 MG TABLET. PO SCH (20:32)
[2019-12-18] MEDS: IV NORMAL SALINE 1000ML BAG 1,000 ML IV SCH (20:33)
[2019-12-18 23:00] VITALS: BP 119/72
[2019-12-19 03:00] VITALS: BP 111/71
[2019-12-19] MEDS: fentaNYL PF VIAL 100 MCG/2 ML VIAL IVP PRN ×3 (04:46→20:33)
[2019-12-19] MEDS: IV NORMAL SALINE 1000ML BAG 1,000 ML IV SCH ×3 (04:49→23:55)
--- NOTE | 2019-12-19 05:00 | NUR ---
Patient refused shower this morning. states he would like one after breakfast hour.
--- NOTE | 2019-12-19 05:04 | NUR ---
RN spoke to Dr. Finn about "lump" on patient's left lower posterior side. It is swollen and painful to touch. MD stated Rheumatology will see him today and will take a look at it. WIll continue to monitor.
[2019-12-19 07:00] VITALS: BP 118/76
[2019-12-19 07:07] LABS: C-REACTIVE PROTEIN 133.9 mg/L (0-3.3); CALCIUM 8.8 mg/dL (8.5-10.1); CREATININE 0.9 mg/dL (0.7-1.3); GFR 87.9
[2019-12-19 07:23] LABS: BASO % 0 % (0-3); EOS # 0.1 x10^3/uL (0.0-0.7); EOS % 1 % (0-3); HEMATOCRIT 37.9 % (39.0-53.0); HEMOGLOBIN 12.7 g/dL (13.0-17.5); LYMPH % 21 % (24-48); MEAN CORPUSCULAR HEMOGLOBIN 29 pg (25-35); MEAN CORPUSCULAR HGB CONC 33 g/dL (31-37); MEAN CORPUSCULAR VOLUME 88 fL (79-100); MONO # 1.4 x10^3/uL (0.0-1.1); MONO % 14 % (0-9); NEUT # 6.3 x10^3/uL (1.8-7.7); NEUT % 64 % (31-73); PLATELET COUNT 242 x10^3/uL (140-400); RED BLOOD COUNT 4.31 x10^6/uL (4.30-5.70); RED CELL DISTRIBUTION WIDTH 13.3 % (11.5-14.5); WHITE BLOOD COUNT 9.9 x10^3/uL (4.0-11.0)
--- NOTE | 2019-12-19 07:23 | NUR ---
RN tried calling patient's G[facility] but there was no answer. RN left a message.
[2019-12-19] MEDS: ASPIRIN ENTERIC COATED 81 MG TABLET.DR. PO SCH ×2 (07:45→08:31)
[2019-12-19] MEDS: LOSARTAN POTASSIUM 50 MG TABLET. PO SCH ×2 (07:45→08:34)
[2019-12-19] MEDS: hydroCHLOROthiazide 12.5 MG CAPSULE PO SCH ×2 (07:46→08:33)
[2019-12-19] MEDS: ASCORBIC ACID 500 MG TABLET PO SCH ×2 (07:46→08:33)
[2019-12-19] MEDS: CHOLECALCIFEROL (VITAMIN D3) 1,000 UNIT TABLET PO SCH ×2 (07:46→08:33)
[2019-12-19] MEDS: OMEGA-3 FATTY ACIDS/FISH OIL 1,000 MG CAPSULE. PO SCH ×2 (07:46→08:33)
[2019-12-19] MEDS: METOPROLOL TART IMMED RELEASE 25 MG TABLET. PO SCH ×3 (07:47→20:33)
[2019-12-19] MEDS ORDERED: predniSONE 20 MG TABLET PO ONE (08:00)
[2019-12-19] MEDS: COLCHICINE 0.6 MG TABLET PO SCH ×2 (08:31→20:33)
--- NOTE | 2019-12-19 08:31 | CONS ---
DATE OF CONSULTATION: 12/19/2019 REQUESTING PHYSICIAN: Clifford Finn MD REASON FOR CONSULTATION: Multiple joint pain. HISTORY OF PRESENT ILLNESS: The patient is a 54-year-old male, who has been admitted because of a sudden onset of the severe pain in the right knee from last 3 days. Last month, he had coronary artery stent placement and then developed the cellulitis of the right foot. He was admitted in the hospital. At that time, he also had a right knee pain and swelling. He had a right knee aspiration and the fluid was suggestive of pseudogout. He had an arthroscopy of the right knee also done. He was treated with IV antibiotic. After going home, he still had pain in the right foot and sometimes in the left foot, which is achy, intermittent, exacerbates with activity. He also had mild achy pain in the right knee with mild swelling also. He was taking the hydrocodone 1 tablet a day, which was helping him to do his activity. Last Thursday, after doing his regular workup, he developed sudden onset of the severe pain and swelling in the right knee associated with warmth. He was taking the hydrocodone, but it did not help him, so yesterday he came to the Emergency because he could not stand or walk. So, Rheumatology consultation has been requested for further evaluation and management. He still complains of the achy, constant pain exacerbating with activity in the right knee associated with the swelling and the warmth. He has pain and swelling with redness in the right big toe and some on the left foot also. PAST MEDICAL HISTORY: Hypertension, hyperlipidemia, and coronary artery disease. PAST SURGICAL HISTORY: Coronary artery stent placement. SOCIAL HISTORY: He denies tobacco, smoking, or alcohol abuse. FAMILY HISTORY: Negative for any autoimmune disease. ALLERGIES: No known drug allergies. MEDICATIONS: I have reviewed the list of medications. REVIEW OF SYSTEMS: He complains of pain in the lower back from yesterday, which is also achy and constant without any radiation. He denies any other symptoms. PHYSICAL EXAMINATION: GENERAL: He is awake, alert, oriented x 3, not in acute distress. VITAL SIGNS: Revealed blood pressure 118/76, respirations 18, pulse 75, temperature 98.6. SKIN: He does not have any rash. HEENT: Normocephalic, atraumatic head. No oral ulcerations. NECK: Supple. HEART: S1, S2 regular. LUNGS: Clear to auscultation. EXTREMITIES: No pitting edema. MUSCULOSKELETAL: Reveals active synovitis with warmth, tenderness, swelling and reduced range of motion on the right knee and active synovitis in the right big toe. He also has tenderness on the lateral side of the left foot. He has tenderness in the paraspinal area in the left lower back area. I have reviewed his laboratory test results and his WBC is 9.9, hemoglobin is 12.7, platelet 242. Uric acid is 6.4. Creatinine is 0.9. C-reactive protein is 133.9. ASSESSMENT: 1. Polyarthralgia. 2. Acute inflammatory arthritis, most likely acute flareup of the gout. 3. 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 4. Acute low back pain. 5. Elevated CRP. His current clinical presentation is quite consistent with acute flareup of the uncontrolled gout in the right knee and the right first MTP joint. Since it is the polyarticular uncontrolled gouty arthritis, I will give him one dose of the 60 mg prednisone p.o. today. If he has no improvement, then the knee aspiration will be done. Clinically, it is unlikely of septic arthritis or any other inflammatory arthritis. I will also start him on the colchicine 0.6 mg b.i.d. and the naproxen b.i.d. I do not have any better explanation for his low back pain. Further recommendation will be given depending on his response to the prednisone and other medications. Thank you for allowing me to participate in his care and if you have any question, please do not hesitate to contact me. GISEL PUENTES MD DR: STACEY/alecia JOB#: [id number] / [id number]
[2019-12-19] MEDS: NAPROXEN 500 MG TABLET PO SCH ×2 (08:32→20:32)
--- NOTE | 2019-12-19 08:38 | PDOC ---
Provider Note Date of Service: DATE: 12/19/19 TIME: 08:37 Provider Note Pt seen .H&P dictated.#[id number]. Ac gout attack rt knee and foot. Rheumatology consult appreciated. Hold off on any surgical plans. Justifications for Admission Other Justification BRAD CASTILLO MD Dec 19, 2019 08:38
[2019-12-19] MEDS: HYDROcodone/APAP 10/325 1 TAB TABLET PO PRN ×2 (08:46→16:44)
--- NOTE | 2019-12-19 09:03 | PDOC2 ---
CONSULT Date of Consult Date of Consult DATE: 12/19/19 TIME: 08:50 Reason for Consult Reason for Consult: Right knee pain and inability to walk. Referring Physician Referring Physician: Dr. Finn Identification/Chief Complaint Chief Complaint Severe right knee pain with inability to walk Source Source: Caregiver, Chart review, Patient History of Present Illness Reason for Visit: The patient has had gout flares in the past and was in the hospital approximately a month ago and had his knee aspirated at that time with 60 cc of fluid withdrawn. Dr. Hidalgo has seen the patient and ordered steroids for gout flare. Past Medical History Cardiovascular: HTN Pulmonary: No pertinent hx GI: No pertinent hx Heme/Onc: Other Hepatobiliary: No pertinent hx Psych: No pertinent hx Musculoskeletal: Osteoarthritis Rheumatologic: No pertinent hx Infectious disease: No pertinent hx Renal/: No pertinent hx Endocrine: No pertinent hx Past Surgical History Past Surgical History: Other Family History Family History: Coronary Artery Disease Social History ALCOHOL: none Drugs: None Lives: with Family Current Medications Current Medications Current Medications Morphine Sulfate (Morphine Sulfate) 4 mg 1X ONCE IV Last administered on 12/18/19at 13:08; Start 12/18/19 at 13:00; Stop 12/18/19 at 13:01; Status DC Sodium Chloride 1,000 ml @ 1,000 mls/hr 1X ONCE IV Last administered on 12/18/19at 13:07; Start 12/18/19 at 13:00; Stop 12/18/19 at 13:59; Status DC Ondansetron HCl (Zofran) 4 mg 1X ONCE IV Last administered on 12/18/19at 13:07; Start 12/18/19 at 13:00; Stop 12/18/19 at 13:01; Status DC Aspirin (Ecotrin) 81 mg DAILYWBKFT PO Last administered on 12/19/19at 08:31; Start 12/19/19 at 08:00 Atorvastatin Calcium (Lipitor) 10 mg HS PO Last administered on 12/18/19at 20:32; Start 12/18/19 at 21:00 Acetaminophen/ Hydrocodone Bitart (Lortab 10/325) 1 tab PRN Q6HRS PRN PO MODERATE-SEVERE PAIN Last administered on 12/19/19at 08:46; Start 12/18/19 at 16:15 Losartan Potassium (Cozaar) 50 mg DAILY PO Last administered on 12/19/19 08:34; Start 12/19/19 at 09:00 Metoprolol Tartrate (Lopressor) 25 mg BID PO Last administered on 12/19/19 08: 46; Start 12/18/19 at 21:00 Fish Oil (Fish Oil) 1,000 mg DAILY PO Last administered on 12/19/19 08:33; Start 12/19/19 at 09:00 Ropinirole HCl (Requip) 0.25 mg HS PO Last administered on 12/18/19 20:32; Start 12/18/19 at 21:00 Acetaminophen (Tylenol) 650 mg PRN Q6HRS PRN PO MILD PAIN / TEMP > 100.3'F; Start 12/18/19 at 16:45 Ascorbic Acid (Vitamin C) 1,000 mg DAILY PO Last administered on 12/19/19 08:33; Start 12/19/19 at 09:00 Vitamin D (Vitamin D3) 2,000 unit DAILY PO Last administered on 12/19/19 08:33; Start 12/19/19 at 09:00 Hydrochlorothiazide (Microzide) 12.5 mg DAILY PO Last administered on 12/19/19 08:33; Start 12/19/19 at 09:00 Sodium Chloride 1,000 ml @ 100 mls/hr Q10H IV Last administered on 12/19/19 04:49; Start 12/18/19 at 16:15 Fentanyl Citrate (Fentanyl 2ml Vial) 25 mcg PRN Q3HRS PRN IVP MODERATE PAIN Last administered on 12/19/19 04:46; Start 12/18/19 at 16:15 Prednisone (Prednisone) 60 mg 1X ONCE PO Last administered on 12/19/19 08:31; Start 12/19/19 at 08:00; Stop 12/19/19 at 08:02; Status DC Prednisone (Prednisone) 40 mg 1X ONCE PO ; Start 12/20/19 at 08:00; Stop 12/20/19 at 08:01 Colchicine (Colcrys) 0.6 mg BID PO Last administered on 12/19/19 08:31; Start 12/19/19 at 09:00 Naproxen (Naprosyn) 500 mg BID PO Last administered on 12/19/19 08:32; Start 12/19/19 at 09:00 Active Scripts Active Hydrocodone-Apap 10-325 (Hydrocodone Bit/Acetaminophen) 1 Tab Tablet 1 Tab PO PRN Q6HRS PRN 7 Days Metoprolol Tartrate 25 Mg Tablet 25 Mg PO BID 30 Days Aspirin Ec (Aspirin) 81 Mg Tablet.dr 81 Mg PO DAILYWBKFT 100 Days Reported Fish Oil 1,000 Mg Softgel (Whately-3 Fatty Acids/Fish Oil) 1 Each Capsule 1 Cap PO DAILY 30 Days Lipitor (Atorvastatin Calcium) 10 Mg Tablet 10 Mg PO HS Acetaminophen Ext.release (Acetaminophen) 650 Mg Tablet.er 650 Mg PO PRN Q8HRS PRN Vitamin C (Ascorbic Acid) 100 Mg Tablet 1,000 Mg PO DAILY Losartan Potassium 50 Mg Tablet 50 Mg PO DAILY Hydrochlorothiazide Tablet (Hydrochlorothiazide) 12.5 Mg Tablet 12.5 Mg PO DAILY D3-50 (Cholecalciferol (Vitamin D3)) 50,000 Unit Capsule 2,000 Unit PO DAILY Ropinirole Hcl 0.25 Mg Tablet 0.25 Mg PO HS Allergies Allergies: Coded Allergies: No Known Drug Allergies (Unverified , 02/26/16) Physical Exam General: Alert, Cooperative, moderate distress Extremities: No clubbing, No cyanosis MUSCULOSKELETAL: Abnormal exam of right (Patient with severe pain in right knee mostly medially. Is unable to flex the knee at this time. Minimal straight leg raise. He does have a moderate effusion which was attempted to be aspirated but the patient would not tolerate it. He states that there is ankle pain also but I believe this is from the acute gout attack. Left leg has full range of motion with the knee and ankle and foot.) Vitals VITALS Vital Signs Date Time Temp Pulse Resp B/P (MAP) Pulse Ox O2 Delivery O2 Flow Rate FiO2 12/19/19 08:46 75 118/76 12/19/19 08:46 Room Air 12/19/19 07:00 98.6 18 97 98.6 Labs Labs Laboratory Tests Test 12/18/19 12:40 12/18/19 14:05 12/18/19 17:35 12/19/19 05:10 White Blood Count 12.6 x10^3/uL (4.0-11.0) 9.9 x10^3/uL (4.0-11.0) Red Blood Count 4.95 x10^6/uL (4.30-5.70) 4.31 x10^6/uL (4.30-5.70) Hemoglobin 14.8 g/dL (13.0-17.5) 12.7 g/dL (13.0-17.5) Hematocrit 42.6 % (39.0-53.0) 37.9 % (39.0-53.0) Mean Corpuscular Volume 86 fL (79-100) 88 fL (79-100) Mean Corpuscular Hemoglobin 30 pg (25-35) 29 pg (25-35) Mean Corpuscular Hemoglobin Concent 35 g/dL (31-37) 33 g/dL (31-37) Red Cell Distribution Width 13.4 % (11.5-14.5) 13.3 % (11.5-14.5) Platelet Count 289 x10^3/uL (140-400) 242 x10^3/uL (140-400) Neutrophils (%) (Auto) 66 % (31-73) 64 % (31-73) Lymphocytes (%) (Auto) 20 % (24-48) 21 % (24-48) Monocytes (%) (Auto) 12 % (0-9) 14 % (0-9) Eosinophils (%) (Auto) 1 % (0-3) 1 % (0-3) Basophils (%) (Auto) 1 % (0-3) 0 % (0-3) Neutrophils # (Auto) 8.3 x10^3/uL (1.8-7.7) 6.3 x10^3/uL (1.8-7.7) Lymphocytes # (Auto) 2.6 x10^3/uL (1.0-4.8) 2.0 x10^3/uL (1.0-4.8) Monocytes # (Auto) 1.6 x10^3/uL (0.0-1.1) 1.4 x10^3/uL (0.0-1.1) Eosinophils # (Auto) 0.1 x10^3/uL (0.0-0.7) 0.1 x10^3/uL (0.0-0.7) Basophils # (Auto) 0.1 x10^3/uL (0.0-0.2) 0.0 x10^3/uL (0.0-0.2) Sodium Level 137 mmol/L (136-145) 137 mmol/L (136-145) Potassium Level 3.7 mmol/L (3.5-5.1) 4.0 mmol/L (3.5-5.1) Chloride Level 98 mmol/L (98-107) 101 mmol/L (98-107) Carbon Dioxide Level 29 mmol/L (21-32) 29 mmol/L (21-32) Anion Gap 10 (6-14) 7 (6-14) Blood Urea Nitrogen 14 mg/dL (8-26) 12 mg/dL (8-26) Creatinine 1.0 mg/dL (0.7-1.3) 0.9 mg/dL (0.7-1.3) Estimated GFR (Cockcroft-Gault) 77.9 87.9 BUN/Creatinine Ratio 14 (6-20) Glucose Level 130 mg/dL (70-99) 102 mg/dL (70-99) Lactic Acid Level 2.3 mmol/L (0.4-2.0) 1.1 mmol/L (0.4-2.0) Uric Acid 6.4 mg/dL (3.5-7.2) 6.0 mg/dL (3.5-7.2) Calcium Level 9.2 mg/dL (8.5-10.1) 8.8 mg/dL (8.5-10.1) Total Bilirubin 1.1 mg/dL (0.2-1.0) Aspartate Amino Transf (AST/SGOT) 20 U/L (15-37) Alanine Aminotransferase (ALT/SGPT) 63 U/L (16-63) Alkaline Phosphatase 60 U/L (46-116) C-Reactive Protein, Quantitative 104.4 mg/L (0-3.3) 133.9 mg/L (0-3.3) Total Protein 8.5 g/dL (6.4-8.2) Albumin 4.1 g/dL (3.4-5.0) Albumin/Globulin Ratio 0.9 (1.0-1.7) SARS-CoV-2 Antigen (Rapid) Negative (NEGATIVE) Laboratory Tests Test 12/18/19 12:40 12/18/19 14:05 12/18/19 17:35 12/19/19 05:10 White Blood Count 12.6 x10^3/uL (4.0-11.0) 9.9 x10^3/uL (4.0-11.0) Red Blood Count 4.95 x10^6/uL (4.30-5.70) 4.31 x10^6/uL (4.30-5.70) Hemoglobin 14.8 g/dL (13.0-17.5) 12.7 g/dL (13.0-17.5) Hematocrit 42.6 % (39.0-53.0) 37.9 % (39.0-53.0) Mean Corpuscular Volume 86 fL (79-100) 88 fL (79-100) Mean Corpuscular Hemoglobin 30 pg (25-35) 29 pg (25-35) Mean Corpuscular Hemoglobin Concent 35 g/dL (31-37) 33 g/dL (31-37) Red Cell Distribution Width 13.4 % (11.5-14.5) 13.3 % (11.5-14.5) Platelet Count 289 x10^3/uL (140-400) 242 x10^3/uL (140-400) Neutrophils (%) (Auto) 66 % (31-73) 64 % (31-73) Lymphocytes (%) (Auto) 20 % (24-48) 21 % (24-48) Monocytes (%) (Auto) 12 % (0-9) 14 % (0-9) Eosinophils (%) (Auto) 1 % (0-3) 1 % (0-3) Basophils (%) (Auto) 1 % (0-3) 0 % (0-3) Neutrophils # (Auto) 8.3 x10^3/uL (1.8-7.7) 6.3 x10^3/uL (1.8-7.7) Lymphocytes # (Auto) 2.6 x10^3/uL (1.0-4.8) 2.0 x10^3/uL (1.0-4.8) Monocytes # (Auto) 1.6 x10^3/uL (0.0-1.1) 1.4 x10^3/uL (0.0-1.1) Eosinophils # (Auto) 0.1 x10^3/uL (0.0-0.7) 0.1 x10^3/uL (0.0-0.7) Basophils # (Auto) 0.1 x10^3/uL (0.0-0.2) 0.0 x10^3/uL (0.0-0.2) Sodium Level 137 mmol/L (136-145) 137 mmol/L (136-145) Potassium Level 3.7 mmol/L (3.5-5.1) 4.0 mmol/L (3.5-5.1) Chloride Level 98 mmol/L (98-107) 101 mmol/L (98-107) Carbon Dioxide Level 29 mmol/L (21-32) 29 mmol/L (21-32) Anion Gap 10 (6-14) 7 (6-14) Blood Urea Nitrogen 14 mg/dL (8-26) 12 mg/dL (8-26) Creatinine 1.0 mg/dL (0.7-1.3) 0.9 mg/dL (0.7-1.3) Estimated GFR (Cockcroft-Gault) 77.9 87.9 BUN/Creatinine Ratio 14 (6-20) Glucose Level 130 mg/dL (70-99) 102 mg/dL (70-99) Lactic Acid Level 2.3 mmol/L (0.4-2.0) 1.1 mmol/L (0.4-2.0) Uric Acid 6.4 mg/dL (3.5-7.2) 6.0 mg/dL (3.5-7.2) Calcium Level 9.2 mg/dL (8.5-10.1) 8.8 mg/dL (8.5-10.1) Total Bilirubin 1.1 mg/dL (0.2-1.0) Aspartate Amino Transf (AST/SGOT) 20 U/L (15-37) Alanine Aminotransferase (ALT/SGPT) 63 U/L (16-63) Alkaline Phosphatase 60 U/L (46-116) C-Reactive Protein, Quantitative 104.4 mg/L (0-3.3) 133.9 mg/L (0-3.3) Total Protein 8.5 g/dL (6.4-8.2) Albumin 4.1 g/dL (3.4-5.0) Albumin/Globulin Ratio 0.9 (1.0-1.7) SARS-CoV-2 Antigen (Rapid) Negative (NEGATIVE) Images Images Signed PATIENT: YONY MILAN ACCOUNT: [id number] : 1965 LOCATION: ER AGE: 54 SEX: M EXAM STATUS: PRE ER ORD. PHYSICIAN: ALLISON LOERA APRN REASON: R knee pain and swelling no injury x 3days PROCEDURE: KNEE RIGHT 3V Right knee 3 views. HISTORY: Pain and swelling 3 views were taken of the right knee. There is mild chondrocalcinosis. There is no fracture. There is mild soft tissue swelling superficially. There is a moderate joint effusion. IMPRESSION: 1. Mild chondrocalcinosis. 2. Prominent joint effusion right knee. Electronically signed by: Darek Anne MD (12/18/2019 1:20 PM) [id number] DICTATED and SIGNED BY: DAREK ANNE MD DATE: 12/18/19 1320 Assessment/Plan Assessment/Plan Patient is here with acute gout attack of the right knee. Aspiration was attempted with no fluid received. Dr. Pereira has ordered steroids. We will discuss with Dr. Garcia about not continuing with the surgery. CATARINA PEPE APRN Dec 19, 2019 09:03
--- NOTE | 2019-12-19 09:25 | NUR ---
SW following. Discussed with RN, pt from home, COVID-19 negative. Surgery being held - trying medications for possible gout attack. PT/OT being ordered. RN advised no SW needs at this time. SW will continue to follow.
--- NOTE | 2019-12-19 10:03 | HP ---
ADMIT DATE: 12/18/2019 PATIENT'S LOCATION: 436. REASON FOR ADMISSION TO THE HOSPITAL: Right knee pain, right foot pain, possible acute gout versus infection. HISTORY OF PRESENT ILLNESS: The patient is a 54-year-old male, the patient has a history of gout. He was admitted a month ago. At that time, the patient had a knee aspiration and arthroscopy done for repair of meniscus. The fluid showed last time white count 30,000, showed calcium pyrophosphate crystals present. He was doing relatively well and he noticed pain in the right knee and the right foot pain, came to the Emergency Room and the patient was admitted for acute flare up versus infection and Rheumatology and orthopedic was consulted. PAST MEDICAL HISTORY: Has a history of coronary artery disease, had a cardiac stent within last 2 months and he also had right knee effusion, was drained and arthroscopy was done. Has a history of hypertension, hyperlipidemia and pseudogout. PAST SURGICAL HISTORY: Had a cardiac stent, had a right knee arthroscopic surgery, also had a right knee cartilage tear 5 years ago. PERSONAL HISTORY: Denies smoking, alcohol, or drug abuse. ALLERGIES: No known allergies. MEDICATIONS AT HOME: The patient is on vitamin C, aspirin 81 mg daily, atorvastatin 10 mg daily, vitamin D 50,000 once a week, hydrochlorothiazide 12.5, hydrocodone 10/325 daily, losartan 50 mg daily, metoprolol 25 mg twice a day, Requip 0.25 daily, fish oil daily. The patient is supposed to be on Brilinta, but I do not see it. REVIEW OF SYMPTOMS: Complains of pain in the right knee, right foot and also back. Denies any injuries or falling down. No nausea, vomiting or fever. Rest of the 14-systems was reviewed and negative. PHYSICAL EXAMINATION: GENERAL: The patient is in slight distress from pain. VITAL SIGNS: Temperature 98, pulse 83, respirations 20, blood pressure 111/70, 93 on room air. HEENT: Head is atraumatic. Pupils equal. Oral cavity: No congestion. NECK: Supple. Thyroid not enlarged. JVD not elevated. CHEST: Symmetrical. CARDIOVASCULAR: S1, S2. LUNGS: Clear. ABDOMEN: Soft, bowel sounds present. No mass palpable. EXTERNAL GENITALIA: No Petty. RECTAL: Deferred. EXTREMITIES: Right knee swelling, it is not red, it is not hot. MTP joint on the right foot is red and tender and the patient also had pain in the left flank area. LABORATORY DATA: Shows a white count of 12.6, came down to 10 without antibiotics. Hemoglobin 14, platelets 289. Electrolytes; sodium 137, potassium 3.7, chloride 98, bicarb 29, anion gap 10, BUN 14, creatinine 1.0, glucose 130. Lactic acid 2.3, came down to 1.1. LFTs were normal. Uric acid 6.4. C-reactive protein 104. Serology negative for COVID. X-ray of the knee shows chondrocalcinosis. FINAL IMPRESSION: 1. Acute gout flareup. 2. Had a history of right knee effusion, was positive for calcium pyrophosphate crystals, which is pseudogout. 3. Coronary artery disease, recent stent. 4. Hypertension. 5. Hyperlipidemia. 6. History of recent arthroscopy a month ago. PLAN: At this time, the patient was seen by Rheumatology and he thinks classic gout, was started on prednisone, colchicine and naproxen, and see how he does and call off any surgery on the right knee at the present time and follow up closely. BRAD CASTILLO MD DR: FINESSE/alecia JOB#: [id number] / [id number] MERARY
[2019-12-19 11:00] VITALS: BP 114/67
[2019-12-19 15:00] VITALS: BP 112/67
--- NOTE | 2019-12-19 16:49 | RAD ---
Three-view study lumbar spine Clinical indications: Low back pain FINDINGS: No compression fracture or discitis or lytic process is evident. The transverse processes are intact. No anterolisthesis is evident. There is moderate degenerative disc space narrowing and degenerative endplate spurring at L4-5 and L5-S1. IMPRESSION: Straightening of the normal lumbar lordosis which may be seen with muscle spasm. No acute compression fracture. Degenerative lumbar spondylosis. Electronically signed by: Ja Gordon MD (12/19/2019 4:46 PM) [id number]
[2019-12-19] MEDS ORDERED: TICA90TA PO (18:39)
[2019-12-19 19:00] VITALS: BP 118/60
[2019-12-19] MEDS: ATORVASTATIN CALCIUM 10 MG TABLET. PO SCH (20:31)
[2019-12-19] MEDS: TICAGRELOR 90 MG TABLET. PO SCH (20:33)
[2019-12-19] MEDS: rOPINIRole 0.25 MG TABLET. PO SCH (20:33)
[2019-12-19 23:00] VITALS: BP 109/57
[2019-12-20 07:00] VITALS: BP 118/73
[2019-12-20] MEDS: ASPIRIN ENTERIC COATED 81 MG TABLET.DR. PO SCH (07:56)
[2019-12-20] MEDS ORDERED: predniSONE 20 MG TABLET PO ONE (08:00)
[2019-12-20] MEDS: CHOLECALCIFEROL (VITAMIN D3) 1,000 UNIT TABLET PO SCH (08:01)
[2019-12-20] MEDS: COLCHICINE 0.6 MG TABLET PO SCH (08:01)
[2019-12-20] MEDS: OMEGA-3 FATTY ACIDS/FISH OIL 1,000 MG CAPSULE. PO SCH (08:01)
[2019-12-20] MEDS: ASCORBIC ACID 500 MG TABLET PO SCH (08:01)
[2019-12-20] MEDS: METOPROLOL TART IMMED RELEASE 25 MG TABLET. PO SCH (08:01)
[2019-12-20] MEDS: TICAGRELOR 90 MG TABLET. PO SCH (08:01)
[2019-12-20] MEDS: LOSARTAN POTASSIUM 50 MG TABLET. PO SCH (08:02)
[2019-12-20] MEDS: NAPROXEN 500 MG TABLET PO SCH (08:02)
[2019-12-20] MEDS: hydroCHLOROthiazide 12.5 MG CAPSULE PO SCH (08:04)
[2019-12-20] MEDS: IV NORMAL SALINE 1000ML BAG 1,000 ML IV SCH (08:15)
--- NOTE | 2019-12-20 08:49 | PDOC ---
PROGRESS NOTES Date of Service: DATE: 12/20/19 TIME: 08:48 Subjective Subjective feeling better ,dec pain rt knee Objective Objective Vital Signs Date Time Temp Pulse Resp B/P (MAP) Pulse Ox O2 Delivery O2 Flow Rate FiO2 12/20/19 08:02 61 118/73 12/20/19 07:00 97.9 18 99 Room Air 97.9 Intake and Output 12/20/19 07:00 Output Total 2100 ml Balance -2100 ml Output Urine Total 2100 ml Physical Exam Abdomen: Soft Heart: Normal S1 Extremities: No clubbing, No cyanosis General: Alert, Cooperative, moderate distress MUSCULOSKELETAL: Abnormal exam of right (Patient with severe pain in right knee mostly medially. Is unable to flex the knee at this time. Minimal straight leg raise. He does have a moderate effusion which was attempted to be aspirated but the patient would not tolerate it. He states that there is ankle pain also but I believe this is from the acute gout attack. Left leg has full range of motion with the knee and ankle and foot.) Neck: No JVD Neuro: Normal speech Psych/Mental Status: Mental status NL Skin: No breakdown Assessment Assessment FINAL IMPRESSION: 1. Acute gout flare up. 2. Had a history of right knee effusion, was positive for calcium pyrophosphate crystals, which is pseudogout. 3. Coronary artery disease, recent stent. 4. Hypertension. 5. Hyperlipidemia. 6. History of recent arthroscopy a month ago. PLAN: clinically improved on steroids +colchicine . d/c home on oral meds. f/u rheumatology in 1 week. attempted draining rt knee not successful yesterday. At this time, the patient was seen by Rheumatology and he thinks classic gout flre up, was started on prednisone, colchicine and naproxen, and see how he does and call off any surgery on the right knee at the present time and follow up closely. Comment Review of Relevant I have reviewed the following items dread (where applicable) has been applied. Labs Microbiology 12/18/19 Blood Culture - Preliminary, Resulted NO GROWTH AFTER 1 DAY Medications Current Medications Ascorbic Acid (Vitamin C) 1,000 mg DAILY PO Last administered on 12/20/19at 08:01; Start 12/19/19 at 09:00 Colchicine (Colcrys) 0.6 mg BID PO Last administered on 12/20/19at 08:01; Start 12/19/19 at 09:00 Fish Oil (Fish Oil) 1,000 mg DAILY PO Last administered on 12/20/19at 08:01; Start 12/19/19 at 09:00 Hydrochlorothiazide (Microzide) 12.5 mg DAILY PO Last administered on 12/20/19at 08:04; Start 12/19/19 at 09:00 Losartan Potassium (Cozaar) 50 mg DAILY PO Last administered on 12/20/19at 08:02; Start 12/19/19 at 09:00 Naproxen (Naprosyn) 500 mg BID PO Last administered on 12/20/19at 08:02; Start 12/19/19 at 09:00 Prednisone (Prednisone) 40 mg 1X ONCE PO Last administered on 12/20/19at 07:57; Start 12/20/19 at 08:00; Stop 12/20/19 at 08:01; Status DC Ticagrelor (Brilinta) 90 mg BID PO Last administered on 12/20/19at 08:01; Start 12/19/19 at 21:00 Vitamin D (Vitamin D3) 2,000 unit DAILY PO Last administered on 12/20/19at 08:01; Start 12/19/19 at 09:00 Vitals/I & O Vital Sign - Last 24 Hours 12/19/19 12/19/19 12/19/19 12/19/19 11:00 11:22 11:55 15:00 Temp 97.9 97.7 97.9 97.7 Pulse 75 70 Resp 18 18 B/P (MAP) 114/67 (83) 112/67 (82) Pulse Ox 93 93 93 93 O2 Delivery Room Air Room Air Room Air Room Air 12/19/19 12/19/19 12/19/19 12/19/19 16:27 16:44 19:00 19:20 Temp 97.5 97.5 Pulse 57 Resp 18 B/P (MAP) 118/60 (79) Pulse Ox 93 93 94 93 O2 Delivery Room Air Room Air Room Air Room Air 12/19/19 12/19/19 12/19/19 12/19/19 20:00 20:33 20:33 21:03 Pulse 70 B/P (MAP) 112/67 O2 Delivery Room Air Room Air Room Air 12/19/19 12/20/19 12/20/19 12/20/19 23:00 03:00 07:00 08:01 Temp 98.0 97.9 98.0 97.9 Pulse 60 61 61 Resp 18 18 18 B/P (MAP) 109/57 (74) 118/73 (88) 118/73 Pulse Ox 96 99 O2 Delivery Room Air Room Air Room Air 12/20/19 08:02 Pulse 61 B/P (MAP) 118/73 Intake and Output 12/19/19 12/19/19 12/20/19 15:00 23:00 07:00 Output Total 300 ml 700 ml 1100 ml Balance -300 ml -700 ml -1100 ml Justifications for Admission Other Justification BRAD CASTILLO MD Dec 20, 2019 08:49
[2019-12-20] MEDS ORDERED: COLC0.6T34 PO (08:53)
[2019-12-20] MEDS ORDERED: PRED20TA PO (08:53)
[2019-12-20] MEDS ORDERED: HYDR-3135 PO (08:53)
--- NOTE | 2019-12-20 09:20 | NUR ---
SW following. Discussed with RN, pt discharging home today after seen by PT/OT. RN advised no SW needs at this time.
[2019-12-20 11:00] VITALS: BP 103/69
--- NOTE | 2019-12-20 13:55 | NUR ---
Discharge Note: [facility] Discharge instructions and discharge home medications reviewed with patient and a copy given. All questions have been answered and understanding verbalized. The following instructions and handouts were given: Take home meds as directed. Prescription for colchicine, prednisone, norco and brilinta given to the patient. Follow up with Dr. Finn in a week. Follow up with cardiology as scheduled. Watch out for fever, severe pain unrelieved by pain medicine, joint swelling, tenderness,limited ROM. Discontinued lines and drains: peripheral IV intact, patient tolerated removal, no complications noted. Patient discharged to home via wheelchair accompanied by family member at 1310.
== END 2019-12-20 13:10 | disposition home or self-care (01) | DRG 554 ==
LOC: ER 11:32 → 4 NORTH 13:15
PROVIDERS: ADMIT Internal Medicine; ATTEND Internal Medicine
PROC: 0S9C3ZX Drainage of Right Knee Joint, Percutaneous Approach, Diagnostic (ICD-10-PCS; principal; 2019-12-18)
DX: M10.9 Gout, unspecified (principal); E78.5 Hyperlipidemia, unspecified; I10 Essential (primary) hypertension; I25.10 Atherosclerotic heart disease of native coronary artery without angina pectoris; M06.4 Inflammatory polyarthropathy; M10.00 Idiopathic gout, unspecified site; M11.20 Other chondrocalcinosis, unspecified site; Z82.49 Family history of ischemic heart disease and other diseases of the circulatory system; Z95.5 Presence of coronary angioplasty implant and graft; M19.90 Unspecified osteoarthritis, unspecified site; Z20.828 Contact with and (suspected) exposure to other viral communicable diseases; Z79.899 Other long term (current) drug therapy; Z88.8 Allergy status to other drugs, medicaments and biological substances; Z86.718 Personal history of other venous thrombosis and embolism; Z79.01 Long term (current) use of anticoagulants
CPT/HCPCS: 36415; 72100; 73562; 80048; 80053; 83605; 84550; 85025; 86140; 87040; 87426; 96361; 96374; 96375; 99285; J2270; J2405; J3010; J7030; J7512; 97110-GP; 97116-GP; G0378; U0003-CS

== ENCOUNTER → 2020-09-27 | Outpatient (CLI) | payer BC ==
[~2020-09-27] MED LIST changes: -CLIN150C14 PO; +CLIN150C15 PO; +COLC0.6T34 PO; -COLC0.6T42 PO; +COLC0.6T45 PO; +HYDR-3135 PO; +OMEG1CAP50 PO; +REGADENOSON 0.4 MG/5 ML DISP.SYRIN. IV ONE
--- NOTE | 2020-09-27 12:46 | RAD ---
MR#: [id number] Date of Study: 09/27/2020 Ordering Physician: SINDI PEDRAZA, Referring Physician: KETURAH MARROQUIN Tech: RT Laz (R) (N) APPROVED REPORT Test Type: Pharmacological Stress Nurse/Tech: Haley Wilson RN Test Indications: CAD Cardiac History: Cardiac stents x2 9mths ago, See EMR. Medications: See EMR. Medical History: See EMR. Resting ECG: SR Resting Heart Rate: 54 bpm Resting Blood Pressure: 111/70mmHg Pretest Chest Pain: No chest pain Nurse/Tech Notes Lungs CTA, Heart tones regular. Consent: The procedure was explained to the patient in lay terms. Informed consent was witnessed. Leonard eout was entered into [employer]. History and Stress Test performed by RT Anastacio (R) (N) Pharm. Details Pharmacologic stress testing was performed using 0.4mg per 5ml of regadenoson given intravenously ove r 7-10 seconds. Stress Symptoms No chest pain or symptoms. POST EXERCISE Reason for Termination: Infusion complete Max HR: 67 bpm Max Blood Pressure: 128/64mmHg Blood Pressure response to exercise: Normal blood pressure response during stress. Heart Rate response to exercise: WNL Chest Pain: No. Arrhythmia: No. ST Change: No. INTERPRETATION Stress EKG Conclusion: Baseline EKG showed sinus rhythm. No ischemic changes at peak stress. No arr hythmias. Imaging Protocol IMAGE PROTOCOL: Rest Tc-99m/stress Tc-99m 1 day Rest: Stress: Viability: Radiopharm.Tc99m QiukgdcuhUw76f Sestamibi Txdm56lNe 30mCi Duration 15min. 15min. Img Date 09/27/2020 09/27/2020 Inj-Img Gewr61nvn. 60min. Rest Admin Site:IV - Right AntecubitalAdministrator:RT Laz (R)(N) Stress Admin Site: IV - Right AntecubitalAdministrator: KETURAH HutchinsTCB, ARRT (R)(N) STRESS DATA End Diast. Vol.127.0mlLVEDV index BSA59.0ml End Syst. Vol.37.0mlLVESV index BSA17.0ml Myocardial Hofx098.0gEject. Axrjhokp80.0% Stress Scores Regional WT0.00Summed WT0.00 Regional WM0.00Summed WM0.00 Study quality was good. Left Ventricular size was Normal at Rest and Stress. Lung uptake was . Left Ventricular ejection fraction is 71%. The rest and stress images show normal perfusion, normal contraction and thickening. LV Perf. Quant 17 Seg. SSS0.00 17 Seg. SRS5.00 17 Seg. SDS0.00 Stress Defect Extent (% LAD)0.00Rest Defect Extent (% LAD)1.30Rev. Defect Extent (% LAD)0.00 Stress Defect Extent (% LCX) 0.00Rest Defect Extent (% LCX)15.00Rev. Defect Extent (% LCX)0.00 Stress Defect Extent (% RCA)0.00Rest Defect Extent (% RCA)0.00Rev. Defect Extent (% RCA)0.00 Stress Defect Extent (% LESTER)0.00Rest Defect Extent (% LESTER)4.80Rev. Defect Extent (% LESTER)0.00 Conclusion 1. Regadenoson cardioisotope stress test did not show any evidence of ischemia or infarct. 2. Normal left ventricular systolic function with ejection fraction calculated at 71%. 3. Low risk for cardiac events. Signed by : Sindi Pedraza, Electronically Approved : 09/27/2020 12:46:08
== END ==
LOC: NM 07:41
PROVIDERS: ATTEND Internal Medicine Cardiovascular Disease
DX: I25.10 Atherosclerotic heart disease of native coronary artery without angina pectoris (principal)
CPT/HCPCS: 78452; 93017; A9500; J2785

== ENCOUNTER 2020-12-14 21:07 | Emergency (ER) | payer BC ==
[~2020-12-14 21:07] MED LIST changes: -CLIN150C15 PO; +CLIN150C16 PO; -REGADENOSON 0.4 MG/5 ML DISP.SYRIN. IV ONE
== END 2020-12-14 23:19 | disposition left against medical advice (07) ==
LOC: ER 21:07
DX: U07.1 COVID-19 (principal); Z53.21 Procedure and treatment not carried out due to patient leaving prior to being seen by health care provider

== ENCOUNTER → 2021-04-01 | Outpatient (CLI) | payer BC ==
--- NOTE | 2021-04-01 14:14 | CARD ---
MR#: [id number] Date of Study: 04/01/2021 Ordering Physician: SINDI MITCHELL, Referring Physician: SINDI MITCHELL, Tech: Tina Berg [facility] APPROVED REPORT EXAM: Two-dimensional and M-mode echocardiogram with Doppler and color Doppler. Other Information Quality : AverageHR: 65bpm INDICATION Cardiac Disease: CAD RISK FACTORS Hypertension 2D DIMENSIONS RVDd3.8 (2.9-3.5cm)Left Atrium(2D)3.6 (1.6-4.0cm) IVSd0.9 (0.7-1.1cm)Aortic Root(2D)3.4 (2.0-3.7cm) LVDd5.4 (3.9-5.9cm)LVOT Diameter2.1 (1.8-2.4cm) PWd0.9 (0.7-1.1cm)LVDs3.3 (2.5-4.0cm) FS (%) 39.4 %SV99.3 ml LVEF(%)69.3 (>50%) Aortic Valve AoV Peak Placido.110.8cm/sAoV VTI23.5cm AO Peak GR.4.9mmHgLVOT Peak Placido.108.2cm/s LVOT VTI 21.60cmAO Mean GR.3mmHg RICHARD (VMAX)2.82za5VZW (VTI)3.12cm2 Mitral Valve MV E Youuacun51.2cm/sMV DECEL VNPZ424ou MV A Bxefsuxz98.7cm/sMV E Mean Gr.1mmHg MV YKS73uaU/A Ratio1.2 MVA (PHT)3.59cm2 TDI E/Lateral E'6.0E/Medial E'7.4 Pulmonary Valve PV Peak Odksyhwr66.7cm/sPV Peak Grad.3mmHg Tricuspid Valve TR P. Eddidjqs527gx/sRAP TLUWFQDS0mqTr TR Peak Gr.67dwHcNLHF39rqPs Pulmonary Vein S1 Wyzweocr11.2cm/sD2 Skoksjzv89.2cm/s PVa scvxumkr278vnle LEFT VENTRICLE The left ventricle is normal size. There is normal left ventricular wall thickness. The left ventricu lar systolic function is normal. The Ejection Fraction is 55-60%. There is normal LV segmental wall m otion. RIGHT VENTRICLE The right ventricle is mildly dilated. There is normal right ventricular wall thickness. The right ve ntricular systolic function is normal. ATRIA The left atrium size is normal. The right atrium is borderline dilated. The interatrial septum is int act with no evidence for an atrial septal defect or patent foramen ovale as noted on 2-D or Doppler i maging. AORTIC VALVE The aortic valve is normal in structure and function. Doppler and Color Flow revealed no significant aortic regurgitation. There is no significant aortic valvular stenosis. Calculated aortic valve area is 3.49 cm2 with maximum pressure gradient of 6 mmHg and mean pressure gradient of 3 mmHg. MITRAL VALVE The mitral valve is normal in structure and function. There is no evidence of mitral valve prolapse. There is no mitral valve stenosis. Doppler and Color Flow revealed no mitral valve regurgitation note d. TRICUSPID VALVE The tricuspid valve is normal in structure and function. Doppler and Color Flow revealed trace tricus pid regurgitation with an estimated PAP of 28 mmHg. There is no tricuspid valve stenosis. PULMONIC VALVE The pulmonic valve is not well visualized. Doppler and Color Flow revealed no pulmonic valvular regur gitation. GREAT VESSELS The aortic root is normal in size. The ascending aorta is normal in size. The IVC is normal in size a nd collapses >50% with inspiration. PERICARDIAL EFFUSION There is no evidence of significant pericardial effusion. Critical Notification Critical Value: No <Conclusion> The left ventricular systolic function is normal. The Ejection Fraction is 55-60%. There is normal LV segmental wall motion. Trace tricuspid regurgitation with an estimated PAP of 28 mmHg. There is no evidence of significant pericardial effusion. Signed by : Sindi Mitchell, Electronically Approved : 04/01/2021 14:14:06
== END ==
LOC: ECHO 09:05
PROVIDERS: ATTEND Internal Medicine Cardiovascular Disease
DX: I25.10 Atherosclerotic heart disease of native coronary artery without angina pectoris (principal)
CPT/HCPCS: 93306